=== PATIENT | female | born 1975 | race Caucasian/White ===

== ENCOUNTER 2020-08-16 12:10 | Outpatient (REF) | payer MEDICAID, SELFPAY ==
--- NOTE | 2020-08-16 | MM_ITS ---
EXAMINATION: MM SCREENING DIGITAL BREAST TOMOSYNTHESIS, BILATERAL CLINICAL INFORMATION: Screening. Asymptomatic. The lifetime risk of breast cancer based on the Tyrer-Cuzick Model is 9.8%. COMPARISON: Mammography: August 11, 2019 and studies dating back to November 16, 2011 TECHNIQUE: Digital breast tomosynthesis is performed in both the craniocaudal and mediolateral oblique views along with computer-aided detection (CAD). Synthesized 2D images are generated from the tomosynthesis. FINDINGS: There are scattered areas of fibroglandular density (ACR BI-RADS breast composition Category b). There are no significant masses, abnormal calcifications, or other abnormalities. Postsurgical change of breast reduction evident within the left breast. MM/MM tomosynthesis screening BI IMPRESSION: There are no significant changes from prior study. ASSESSMENT: BI-RADS 2: Benign RECOMMENDATION: Routine annual mammography screening. This patient's information was entered into a reminder system with a target due date for their next mammogram.
== END 2020-08-16 12:11 | disposition home or self-care (01) ==
LOC: HO.MAMMO 12:10
PROVIDERS: PCP Internal Medicine; Visit Provider Internal Medicine
DX: Z12.31 Encounter for screening mammogram for malignant neoplasm of breast (principal)
CPT/HCPCS: 77063; 77067

== ENCOUNTER 2020-08-30 08:25 | Outpatient (REF) | payer MEDICAID, SELFPAY ==
[2020-08-31 09:32] LABS: CT PCR NOT DETECTED (Not Detect.); NG PCR NOT DETECTED (Not Detect.)
[2020-08-31 09:52] LABS: BV Int Neg Control Negative (Negative); BV Int Pos Control Positive (Positive)
== END 2020-08-30 08:26 | disposition home or self-care (01) ==
LOC: HO.LAB 08:25
PROVIDERS: Visit Provider Obstetrics & Gynecology
DX: Z01.419 Encounter for gynecological examination (general) (routine) without abnormal findings (principal); K59.00 Constipation, unspecified; N93.9 Abnormal uterine and vaginal bleeding, unspecified
CPT/HCPCS: 58100; 87480; 87491; 87510; 87591; 87660

== ENCOUNTER 2020-09-15 08:23 | Outpatient (REF) | payer MEDICAID, SELFPAY ==
[2020-09-15 10:40] LABS: Blood Urea Nitrogen 16 mg/dL (9-16); Estimated Glomerular Filt Rate > 60
== END 2020-09-15 08:24 | disposition home or self-care (01) ==
LOC: HO.10HDL 08:23
PROVIDERS: Visit Provider Urology
DX: N93.9 Abnormal uterine and vaginal bleeding, unspecified (principal); R31.9 Hematuria, unspecified
CPT/HCPCS: 82565; 84520

== ENCOUNTER 2020-09-16 06:57 | Outpatient (REF) | payer MEDICAID, SELFPAY ==
--- NOTE | 2020-09-16 07:00 | CT_ITS ---
EXAMINATION: CT ABDOMEN AND PELVIS WITHOUT AND WITH CONTRAST CLINICAL INFORMATION: Hematuria COMPARISON: CT abdomen and pelvis noncontrast 02/21/2020, 01/02/2020 TECHNIQUE: Noncontrast CT of the abdomen and pelvis is performed followed by split bolus contrast-enhanced images using 85 mL Omnipaque 350 contrast.? Post contrast imaging is performed during the combined nephrogram and excretion phase. Sagittal and coronal reformatted images were obtained on the technologist's workstation for both the pre and postcontrast phases. This CT examination was performed using dose optimization techniques as appropriate, variously including the following: *Automated exposure control *Adjustment of mA and/or kV according to patient size (this includes techniques or standardized protocols for targeted exams where dose is matched to indication/reason for exam; i.e. extremities or head) *Use of iterative reconstruction technique DLP: 1072 mGy-cm FINDINGS: LUNG BASES: The visualized lung bases are unremarkable. LIVER, GALLBLADDER, AND BILIARY TREE: The liver within the [id number] is normal in size and smooth in contour. Parenchymal areas homogeneous. There is no focal hepatic parenchymal lesion or intrahepatic ductal dilatation. The gallbladder is unremarkable with no evidence of radiopaque gallstones, gallbladder wall thickening, or obvious pericholecystic inflammatory changes. PANCREAS: Unremarkable. SPLEEN: Unremarkable. Incidental small splenule left upper quadrant again noted. ADRENAL GLANDS: Unremarkable. KIDNEYS AND URETERS: The kidneys are normal in size and smooth in contour. The parenchyma enhances symmetrically. There is no renal parenchymal mass. There is no hydronephrosis, hydroureter, or perinephric stranding. A questionable punctate nonobstructing calculus is again suggested right lower pole under 3 mm. Otherwise, no visible urinary tract calculi. There is no mucosal thickening or mucosal filling defect demonstrated. BLADDER: Unremarkable. GASTROINTESTINAL TRACT: The small and large bowel are unremarkable. The appendix is unremarkable. No ascites or fluid collection. ABDOMINAL WALL: No significant hernia is appreciated. LYMPH NODES: No lymphadenopathy. VASCULAR: Unremarkable. PELVIC VISCERA: Unremarkable. OSSEUS STRUCTURES: Unremarkable. CT/CT urogram IMPRESSION: 1. Questionable punctate nonobstructing right lower pole calculus under 3 mm. 2. Otherwise no urinary tract calculi. No parenchymal lesion or mucosal filling defect.
[2020-09-16] MEDS: iohexoL 350 MG/ML 100 ML INFUS..BTL 85 ML IV (08:16)
== END 2020-09-16 06:58 | disposition home or self-care (01) ==
LOC: HO.CT 06:57
PROVIDERS: Visit Provider Urology
DX: R31.9 Hematuria, unspecified (principal)
CPT/HCPCS: 74178; Q9967

== ENCOUNTER → 2020-09-19 07:54 | Outpatient (BNVA) | payer MEDICAID, SELFPAY | PROVIDERS: Visit Provider Obstetrics & Gynecology | DX: N93.9 Abnormal uterine and vaginal bleeding, unspecified (principal) | CPT/HCPCS: 99212 ==

== ENCOUNTER 2020-09-29 06:09 | Day surgery (SDC) | payer MEDICAID, SELFPAY ==
[2020-09-22 18:56] VITALS: BMI 28.3
--- NOTE | 2020-09-28 12:02 | HO.ANESPROP2 ---
Documented by User: Ivonne Montanez 09/28/20 12:03 HPI - Anesthesia Eval Consult details Narrative: 45yo F for Hysteroscopy D&C [facility] [place] Past Medical History Medical History Asthma History of abnormal cervical Pap smear Family History Family History Father Throat cancer Paternal Grandmother Throat cancer Surgical History Surgical History History of bilateral breast reduction surgery History of loop electrical excision procedure (LEEP) History of tubal ligation Social History Social History Alcohol intake: current Alcohol intake frequency: holidays/special occasions only Smoking Status: Never smoker Second Hand Smoke Exposure: No Use of substances other than those prescribed or required for medical reasons: No Advance Directives: No Advance Directives Information Provided: No Advance Directives on File: No Recently lost weight without trying: No Sexual orientation: Straight/Heterosexual Gender identity: female Meds Allergies Allergy/AdvReac Type Severity Reaction Status Date / Time No Known Allergies Allergy Mild NOT Verified 09/29/20 07:12 APPLICABLE Home Medications Medication Instructions Recorded Confirmed Type albuterol sulfate 90 mcg/actuation 2 puff INHALATION Q6H PRN 09/19/20 09/22/20 History aerosol inhaler Exam Exam Date and Time: September 28, 2020 1202 Height,Weight and Vital Signs: Height 5 ft 1 in Weight 68.039 kg Pertinent Lab Results Pertinent Lab Results: Laboratory Tests 09/15/20 08:10 BUN 16 Creatinine 0.67 Assessment and Plan Assessment Anesthesia Assessment: Chart Reviewed Documented by User: Sadie Ruiz 09/29/20 07:53 [facility] [place] Past Medical History Medical History Asthma History of abnormal cervical Pap smear Family History Family History Father Throat cancer Paternal Grandmother Throat cancer Surgical History Surgical History History of bilateral breast reduction surgery History of loop electrical excision procedure (LEEP) History of tubal ligation Social History Social History Alcohol intake: current Alcohol intake frequency: holidays/special occasions only Smoking Status: Never smoker Second Hand Smoke Exposure: No Use of substances other than those prescribed or required for medical reasons: No Advance Directives: No Advance Directives Information Provided: No Advance Directives on File: No Recently lost weight without trying: No Sexual orientation: Straight/Heterosexual Gender identity: female Meds Allergies Allergy/AdvReac Type Severity Reaction Status Date / Time No Known Allergies Allergy Mild NOT Verified 09/29/20 07:12 APPLICABLE Home Medications Medication Instructions Recorded Confirmed Type albuterol sulfate 90 mcg/actuation 2 puff INHALATION Q6H PRN 09/19/20 09/22/20 History aerosol inhaler Exam Airway Mallampati Class: II TM Dist: >3cm Neck ROM: Full
[2020-09-29 06:21] VITALS: BP 153/81; PULSE 82; RESP 16; TEMP 36.7; O2SAT 98
[2020-09-29] MEDS: Lactated Ringers 1,000 ML 100 ML IVCONT (06:41)
[2020-09-29 06:59] LABS: HCG Quantitative < 2 mIU/mL
--- NOTE | 2020-09-29 07:30 | MHC.SHP ---
Pre-Procedural Eval Section A The patient is an INPATIENT: No Changes since office visit: No Cold of Flu in the past 2 weeks, No New Medical Problems, No Changes in Medication and No Patient answered all questions The History & Physical has been completed within 30 days and I have reviewed it.: Yes Section B Chief Complaint: uterine bleeding Allergies: Allergies Allergy/AdvReac Type Severity Reaction Status Date / Time No Known Allergies Allergy Mild NOT Verified 09/29/20 07:12 APPLICABLE Plan I have reviewed the history and physical and performed a pertinent physical examination on my patient. No changes have occurred unless specified.
--- NOTE | 2020-09-29 07:53 | HO.ANESPROP2 ---
[facility] Past Medical History Medical History Asthma History of abnormal cervical Pap smear Family History Family History Father Throat cancer Paternal Grandmother Throat cancer Surgical History Surgical History History of bilateral breast reduction surgery History of loop electrical excision procedure (LEEP) History of tubal ligation Social History Social History Alcohol intake: current Alcohol intake frequency: holidays/special occasions only Smoking Status: Never smoker Second Hand Smoke Exposure: No Use of substances other than those prescribed or required for medical reasons: No Advance Directives: No Advance Directives Information Provided: No Advance Directives on File: No Recently lost weight without trying: No Sexual orientation: Straight/Heterosexual Gender identity: female Meds Allergies Allergy/AdvReac Type Severity Reaction Status Date / Time No Known Allergies Allergy Mild NOT Verified 09/29/20 07:12 APPLICABLE Home Medications Medication Instructions Recorded Confirmed Type albuterol sulfate 90 mcg/actuation 2 puff INHALATION Q6H PRN 09/19/20 09/22/20 History aerosol inhaler Exam Exam Date and Time: September 29, 2020 0753 Height,Weight and Vital Signs: Height 5 ft 1 in Weight 68.039 kg Last Vital Signs Temp 98.1 F 09/29/20 06:21 Pulse 82 09/29/20 06:21 Resp 16 09/29/20 06:21 BP 153/81 H 09/29/20 06:21 Pulse Ox 98 09/29/20 06:21 Pertinent Lab Results Pertinent Lab Results: Laboratory Tests 09/29/20 06:27 Beta HCG, Quant < 2 Assessment and Plan Assessment Anesthesia Assessment: Anesthesia Plan Discussed and Chart Reviewed Final Anesthetic Review NPO: Yes ASA Class: I Final Preanesthetic Review: No Changes in Pt Med Stat, Meds/Allgs Chart Reviewed, Consent Obtained/Reviewed and Anes Risks/Benef Reviewed Patient Risk: Low Procedure Risk: Low Assessment/Block/Sedation in SS: Assess/Block/Sedation-SS Anesthetic Plan Anesthetic Plan: MAC: Disposition: Standard PACU
[2020-09-29 08:30] VITALS: BP 139/85; PULSE 85; RESP 16; TEMP 36.2; O2SAT 98
--- NOTE | 2020-09-29 08:38 | W.PM.OPN ---
Operative Note Operative Note Date of Service: 09/29/20 Narrative: Ms. Tomlin is a 45 year old with abnormal uterine bleeding. She presents today for hysteroscopy d&c after endometrial biopsy was not able to be done in the office. Surgical Risks: The patient was informed of the risks and benefits of a hysteroscopy with dilation and curettage. Risks included but were not limited to bleeding, infection, injury to the vulva, vagina, or cervix, and uterine perforation with possible need for further surgery. The patient expressed understanding of the risks involved, all questions were answered, and the patient consented to the procedure. The patient was taken to the operating room where a time out was confirmed to confirm correct patient and correct procedure. Adequate IV sedation was established. The patient was then positioned on the operating table in the dorsal lithotomy position with her legs supported using stirrups. All pressure points were padded and a warm blanket was placed to maintain control of core body temperature. The patient was then prepped and draped in the usual sterile fashion. A bimanual exam was performed and the uterus was found to be approximately 10 cm size, anteverted. A straight catheter was inserted into the bladder and 75mL of urine was obtained. A bivalve speculum was then inserted into the vagina. The anterior lip of the cervix was visualized and grasped using a single tooth tenaculum. The cervix was adequately dilated using Gregg dilators for the introduction of the hysteroscope. The hysteroscope was introduced under direct visualization using normal saline solution as the distending media. The hysteroscope was unable to be advanced to the fundus due to a likely fibroid at the internal cervical os. The myosure device was inserted and used to remove the likely fibroid. The hysteroscope was then further advanced into the uterine cavity and what appeared to be an endometrial polyp was visualized on the posterior surface. This was removed with the myosure. The cavity was then inspected with no other gross abnormalities noted. The hysteroscope was then removed and a sharp curetting was performed starting at the 12 o?clock position and rotating a total of 360 degrees in order to cover all surfaces. Endometrial tissue was obtained and was sent to pathology. Following the curetting, good hemostasis was noted. The single-tooth tenaculum was removed from the anterior lip of the cervix and hemostasis was also noted at the tenaculum puncture sites. The speculum was then removed from the vagina. At the end of the procedure, all needle, sponge, and instrument counts were noted to be correct x2. The patient was transferred to the recovery room in stable condition.
[2020-09-29 08:45] VITALS: BP 137/73; PULSE 78; RESP 16; O2SAT 100
[2020-09-29] MEDS: oxyCODONE HCl Immed Release 5 MG TABLET PO (08:51)
[2020-09-29] MEDS: Acetaminophen 325 MG TABLET 650 MG PO (08:52)
[2020-09-29 09:00] VITALS: BP 144/76; PULSE 72; RESP 16; O2SAT 99
[2020-09-29 09:15] VITALS: BP 146/67; PULSE 63; RESP 16; TEMP 36.3; O2SAT 100
--- NOTE | 2020-09-29 09:25 | HO.POSTANES ---
Post Anesthesia Evaluation Post Anesthesia Evaluation Vital Signs: Vital Signs Temp Pulse Resp BP Pulse Ox 09/29/20 09:15 97.4 F 63 16 146/67 H 100 09/29/20 09:00 72 16 144/76 H 99 09/29/20 08:45 78 16 137/73 100 09/29/20 08:30 97.2 F 85 16 139/85 98 09/29/20 06:21 98.1 F 82 16 153/81 H 98 Anesthesia: Monitored Mental Status: Awake Pain Control: Satisfactory Nausea/Vomiting: None Hydration: Adequate Anesthesia-Related Issues: No Anes. Related Issues
== END 2020-09-29 09:39 | disposition home or self-care (01) ==
PROVIDERS: Visit Provider Obstetrics & Gynecology
PROC: 0UJD8ZZ Inspection of Uterus and Cervix, Via Natural or Artificial Opening Endoscopic (ICD-10-PCS; CPT 58555; principal; 2020-09-29 07:30)
DX: N93.9 Abnormal uterine and vaginal bleeding, unspecified (principal); N84.0 Polyp of corpus uteri; Z98.51 Tubal ligation status
CPT/HCPCS: 58558; 84702; 88305; J1885; J2250; J2405; J3010

== ENCOUNTER → 2020-10-05 09:25 | Outpatient (BNVA) | payer MEDICAID, SELFPAY | PROVIDERS: Visit Provider Nurse Practitioner | DX: Z13.89 Encounter for screening for other disorder (principal) | CPT/HCPCS: 99202 ==

== ENCOUNTER → 2020-10-12 14:53 | Outpatient (BNVA) | payer MEDICAID, SELFPAY | PROVIDERS: Visit Provider Obstetrics & Gynecology ==

== ENCOUNTER → 2020-10-13 10:46 | Outpatient (BNVA) | payer MEDICAID, SELFPAY | PROVIDERS: PCP Nurse Practitioner Family; Visit Provider Urology | DX: R31.9 Hematuria, unspecified (principal) | CPT/HCPCS: 52000; 81002; 99212 ==

== ENCOUNTER 2020-10-19 08:55 | Outpatient (REF) | payer MEDICAID, SELFPAY ==
--- NOTE | 2020-10-19 08:58 | US_ITS ---
EXAMINATION: US ABDOMEN COMPLETE CLINICAL INFORMATION: Dysphagia, unspecified. Right upper quadrant pain. COMPARISON: CT abdomen and pelvis 02/21/2020. TECHNIQUE: Real-time imaging of the abdominal viscera. FINDINGS: PANCREAS: Normal. ABDOMINAL AORTA: The proximal, mid, and distal segments are normal in caliber. INFERIOR VENA CAVA: Visualized portions are normal. LIVER: Normal. The liver is normal in size. The liver contour is normal. Parenchymal echogenicity is normal. No focal hepatic lesion. No intrahepatic bile duct dilatation. GALLBLADDER: Normal. The gallbladder is physiologically distended without evidence of stones, sludge, polyps, wall thickening or pericholecystic fluid. COMMON BILE DUCT: Normal in caliber measuring 0.2 cm in diameter. RIGHT KIDNEY: Normal. No hydronephrosis. No renal calculi or focal parenchymal lesions. The kidney measures 11.0 cm in maximum dimension. LEFT KIDNEY: Normal. No hydronephrosis. No renal calculi or focal parenchymal lesions. The kidney measures 11.7 cm in maximum dimension. SPLEEN: Normal. The spleen measures 7.2 cm in maximum dimension. FREE FLUID: None. US/US abdomen complete IMPRESSION: Normal abdominal ultrasound.
== END 2020-10-19 08:56 | disposition home or self-care (01) ==
LOC: HO.HMGCX 08:55
PROVIDERS: Visit Provider Nurse Practitioner
DX: R10.11 Right upper quadrant pain (principal)
CPT/HCPCS: 76700

== ENCOUNTER 2020-10-20 13:17 | Outpatient (REF) | payer MEDICAID, SELFPAY | END 2020-10-20 13:18 | disposition home or self-care (01) | LOC: HO.LNP 13:17 | PROVIDERS: Visit Provider Nurse Practitioner | DX: K59.00 Constipation, unspecified (principal); R10.11 Right upper quadrant pain | CPT/HCPCS: 87338 ==

== ENCOUNTER → 2020-11-02 08:37 | Outpatient (BNVA) | payer MEDICAID, SELFPAY | PROVIDERS: Visit Provider Nurse Practitioner ==

== ENCOUNTER 2020-11-09 05:08 | Emergency (ER) | payer MEDICAID, SELFPAY ==
[2020-11-09 05:17] VITALS: BP 146/79; PULSE 76; RESP 16; TEMP 36.9; O2SAT 97; BMI 29.2
--- NOTE | 2020-11-09 05:20 | PC.NURSE ---
PT TO ROOM 21 WITH C/O MID ABD PAIN AFTER EATING LOBSTER TONIGHT. PT ARRIVES ALERT, RESPIRATIONS EASY, N/L. SKIN W/D. IN ROOM FOR EVAL.
--- NOTE | 2020-11-09 05:46 | PC.NURSE ---
IV PLACED TO LEFT AC, LABS DRAWN TO LAB FOR EVAL. IN ROOM FOR OBS TO LAB. WILL CONTINUE TO MONITOR PT.
[2020-11-09 05:49] LABS: Basophils Percent Auto 0.1 % (0-2); Eosinophils Absolute Auto 0.2 X10*3/uL (0.0-0.4); Eosinophils Percent Auto 1.4 % (0-4); Hematocrit 40.6 % (37-47); Hemoglobin 13.5 g/dl (12.0-16.0); Imm Gran Abs Auto 0.05 X10*3/uL (0.00-0.03); Imm Gran Pct Auto 0.4 % (0.0-0.4); Lymphocytes Absolute Auto 1.3 X10*3/uL (1.2-4.9); Lymphocytes Percent Auto 9.7 % (20-40); MANUAL DIFF FLAG NO; Mean Corpuscular HGB Conc 33.3 g/dl (31.0-35.0); Mean Corpuscular Hemoglobin 29.3 pg (27.0-33.0); Mean Corpuscular Volume 88.3 fL (80-98); Mean Platelet Volume 8.8 fL (9.4-12.3); Monocytes Absolute Auto 0.7 X10*3/uL (0.1-1.2); Neutrophils Absolute Auto 11.5 X10*3/uL (2.0-8.3); Neutrophils Percent Auto 83.4 % (45-73); Platelet Count 295 X10*3/uL (160-400); White Blood Count 13.7 X10*3/uL (4.8-10.8)
[2020-11-09] MEDS: Famotidine/PF 20 MG/2 ML VIAL IVPUSH (05:50)
[2020-11-09] MEDS: Metoclopramide HCl 10 MG/2 ML VIAL IVPUSH (05:50)
[2020-11-09] MEDS: Magnesium Hydrox/Alum Hydrox 30 ML ORAL.SUSP PO (05:50)
[2020-11-09] MEDS: Lidocaine HCl Viscous 2 % 15 ML SOLUTION 10 ML MUCOUS MEM (05:50)
[2020-11-09] MEDS: 0.9 % Sodium Chloride 1,000 ML 999 ML IVCONT (05:50)
[2020-11-09 05:52] LABS: Glucose Urine UA NEG (NEG); Leukocyte Esterase Urine NEG (NEG); Nitrite Urine NEG (NEG); PH 7.5 (5.0-8.0); Urine Blood NEG (NEG); Urine Ketones NEG (NEG); Urine Protein NEG (NEG-TRACE)
[2020-11-09 05:54] LABS: Appearance Urine CLEAR; Color Urine YELLOW; OBS Int Ctl Valid YES; OBS1 NEG (NEG)
[2020-11-09 05:55] LABS: UPreg QC Valid YES; Urine Pregnancy NEGATIVE (NEGATIVE)
--- NOTE | 2020-11-09 05:56 | ED_ITS ---
HPI - Abdominal Pain General Chief Complaint: Abdominal Pain Stated Complaint: Abd pain Time Seen by Provider: 11/09/20 05:28 Source: patient Mode of arrival: ambulatory Limitations: no limitations History of Present Illness HPI narrative: 45-year-old female with history of H pylori infection and chronic abdominal pain, patient is seeing GI and schedule to have barium swallow by GI, patient yesterday ate lobster and after eating lobster pain gotten worse, patient has started have several episodes of vomiting. Patient also documented that she has been having black stool. Patient describes pain in the epigastric area with no radiation, pain is constant feels like burning pain pain is moderate in severity (5/10), food makes the pain worse, nothing make it better, pain is associated with vomiting and black stool diarrhea. Related Data Home Medications Medication Instructions Recorded Confirmed albuterol sulfate 90 mcg/actuation 2 puff INHALATION Q6H PRN 09/19/20 10/13/20 aerosol inhaler Previous Rx's Medication Instructions Recorded acetaminophen [Tylenol 8 Hour] 650 mg PO Q8H PRN #60 tab 09/29/20 ibuprofen 800 mg PO Q8H PRN #60 tab 09/29/20 oxycodone [Roxicodone] 5 mg PO Q6H PRN #5 tab 09/29/20 bisacodyl 5 mg tablet,delayed 10 mg PO BEDTIME 2 Days #4 tab 10/05/20 release hydrocortisone 2.5 % topical cream 1 appl AR BID PRN #30 g 10/05/20 with perineal applicator medroxyprogesterone 10 mg tablet 20 mg PO DAILY 5 Days #10 tab 10/12/20 norgestimate 0.25 mg-ethinyl 1 tab PO DAILY #84 tab 10/12/20 estradiol 35 mcg tablet sulfamethoxazole 800 1 tab PO BID #14 tab 10/12/20 mg-trimethoprim 160 mg tablet metronidazole 500 mg tablet 1,000 mg PO BID 14 Days #56 tab 10/28/20 omeprazole 20 mg capsule,delayed 20 mg PO BID 14 Days #28 cap 10/28/20 release ondansetron HCl 4 mg tablet 4 mg PO BID-TID PRN 14 Days #60 tab 10/28/20 tetracycline 500 mg capsule 500 mg PO Q12H 14 Days #28 cap 10/28/20 bismuth subsalicylate 262 mg 2 tab PO QID 14 Days #112 tab 11/02/20 chewable tablet linaclotide 290 mcg capsule 290 mcg PO QAM 30 Days #30 cap 11/02/20 polyethylene glycol 3350 17 17 g PO ONCE 1 Days #17 g 11/02/20 gram/dose oral powder bisacodyl 5 mg tablet,delayed 10 mg PO ONCE 1 Days #2 tab 11/03/20 release Allergies Allergy/AdvReac Type Severity Reaction Status Date / Time No Known Allergies Allergy Mild NOT Verified 10/13/20 11:13 APPLICABLE Review of Systems Review of Systems All other systems are reviewed and are negative Constitutional: Reports as per HPI and Reports no additional constitutional complaints Eyes: Reports as per HPI and Reports no additional eye complaints Reports system reviewed and no additional complaints, except as documented Cardiovascular: Reports as per HPI and Reports no additional cardiovascular complaints Respiratory: Reports as per HPI and Reports no additional respiratory complaints Gastrointestinal: Reports as per HPI and Reports no additional gastrointestinal complaints Genitourinary: Reports no additional female genitourinary complaints Musculoskeletal: Reports no additional musculoskeletal complaints Skin/Breast: Reports system reviewed and no additional complaints, except as docu Psychiatric: Reports no additional psychiatric complaints Endocrine: Reports no additional endocrine complaints Hematologic/Lymphatic: Reports no additional hematologic/lymphatic complaints Allergic/Immunologic: Reports no additional allergic/immunologic complaints Reports system reviewed and no additional complaints, except as documented and Reports Abnormal speech present Physical Exam Vital Signs: Vital Signs: Last Vital Signs Temp 98.5 F 11/09/20 05:17 Pulse 76 11/09/20 05:17 Resp 16 11/09/20 05:17 BP 146/79 H 11/09/20 05:17 Pulse Ox 97 11/09/20 05:17 Body Mass Index 29.2 Vital signs have been reviewed as normal and appeared to be correct. Blood pressure high. Heart rate normal. Respiration rate normal. Temperature normal. Oxygen saturation normal. Appearance: Alert. Oriented X3. No acute distress. Head: Normal external exam. Normocephalic. Atraumatic. No Reeves signs noted. No raccoon eyes noted Eyes: PERRLA. EOMI. Conjunctiva and sclera normal. Eyelids normal. ENT: EAC normal. TM's Normal. Pharynx normal. Uvula midline. Moist mucous membranes. No trismus noted. No drooling noted. No muffled voice noted. Neck: Normal inspection. Neck supple. FROM. No adenopathy. Thyroid Normal. No meningeal signs. No neck mass noted. CVS: Normal heart rate and rhythm. Heart sound normal. No murmurs noted. Pulses normal throughout. Respiratory: No respiratory distress. Painless inspiration. Breath sounds normal. No wheezes/rales/rhonchi noted. Chest nontender. No accessory muscle usage noted or decreased air movement noted. Abdomen: Soft, tenderness in the epigastric area, no rebound tenderness, no guarding.. Bowel sounds normal in all 4 quadrants. No distention noted. No organomegaly noted. No visible injury noted. Rectal exam: Good rectal tone, brown stool, no blood, guaiac was negative for blood. Back: No CVA tenderness. Full range of motion noted. Skin: Skin warm and dry. Normal skin color. Normal skin turgor. No rashes/lesions/lacerations noted. Extremities: No lower extremity edema. Extremities exhibit normal range of motion. Extremities nontender. Neuro: Oriented X 3. No motor deficit. No sensory deficit. Reflexes normal. Course Course Course Narrative: Acute on chronic abdominal pain due to chronic gastritis patient is already following with fruit rancher in the process of getting barium swallow and upper endoscopy, patient currently receiving treatment for H pylori. Reevaluation(s) Reevaluation #1: Patient was re-evaluated after getting a GI cocktail/Pepcid IV/Reglan IV/IV hydration. Patient is feeling much better, able to tolerate p.o. intake (ice chips), repeat abdominal exam is unremarkable except for mild epigastric tenderness with no rebound no guarding with much improved exam As discussed with the patient to call GI today probably to arrange for upper GI serous and upper endoscopy. Time: 06:45 [facility] - Abdominal Pain Lab Data Result diagrams: 11/09/20 05:38 11/09/20 05:38 Labs: Lab Results 11/09/20 11/09/20 11/09/20 Range/Units 05:38 05:38 05:38 WBC 13.7 H (4.8-10.8) X10*3/uL RBC 4.60 (4.20-5.50) X10*6/uL Hgb 13.5 (12.0-16.0) g/dl Hct 40.6 (37-47) % MCV 88.3 (80-98) fL MCH 29.3 (27.0-33.0) pg MCHC 33.3 (31.0-35.0) g/dl RDW 13.0 (11.0-16.0) % Plt Count 295 (160-400) X10*3/uL MPV 8.8 L (9.4-12.3) fL Immature Gran % (Auto) 0.4 (0.0-0.4) % Neut % (Auto) 83.4 H (45-73) % Lymph % (Auto) 9.7 L (20-40) % [place] % (Auto) 5.0 (2-11) % Eos % (Auto) 1.4 (0-4) % Baso % (Auto) 0.1 (0-2) % Lymph # (Auto) 1.3 (1.2-4.9) X10*3/uL [place] # (Auto) 0.7 (0.1-1.2) X10*3/uL Eos # (Auto) 0.2 (0.0-0.4) X10*3/uL Baso # (Auto) 0.0 (0.0-0.2) X10*3/uL Abs Immat Gran (auto) 0.05 H (0.00-0.03) X10*3/uL Absolute Neuts (auto) 11.5 H (2.0-8.3) X10*3/uL Absolute Nucleated RBC 0.000 (0.0-0.012) X10*3/uL Nucleated RBC % (auto) 0.0 (0.0-0.2) /100WBC Sodium 134 L (135-145) mmol/L Potassium 3.9 (3.3-5.1) mmol/l Chloride 103 (96-108) mmol/L Carbon Dioxide 23 (22-29) mmol/L Anion Gap 12 (12-20) BUN 13 (9-16) mg/dL Creatinine 0.64 (0.5-1.4) mg/dL Estim Creat Clear Calc 94.5 Estimated GFR > 60 Random Glucose 101 (60-115) mg/dL Calcium 9.1 (8.4-10.2) mg/dL Total Bilirubin 0.6 (0.0-1.0) mg/dL Direct Bilirubin 0.2 (0.0-0.5) mg/dL AST 23 (5-31) U/L ALT 24 (0-31) U/L Alkaline Phosphatase 47 (39-117) U/L Total Protein 6.7 (6.5-8.0) g/dL Albumin 3.9 (3.5-5.0) g/dL Lipase 25 (8-78) U/L Urine Color YELLOW Urine Appearance CLEAR Urine pH 7.5 (5.0-8.0) Ur Specific [place] 1.020 (1.005-1.025) Urine Protein NEG (NEG-TRACE) MG/DL Urine Glucose (UA) NEG (NEG) MG/DL Urine Ketones NEG (NEG) MG/DL Urine Blood NEG (NEG) Urine Nitrite NEG (NEG) Ur Leukocyte Esterase NEG (NEG) Urine Test NEGATIVE (NEGATIVE) Stool Occult Blood (NEG) 11/09/20 Range/Units 05:38 WBC (4.8-10.8) X10*3/uL RBC (4.20-5.50) X10*6/uL Hgb (12.0-16.0) g/dl Hct (37-47) % MCV (80-98) fL MCH (27.0-33.0) pg MCHC (31.0-35.0) g/dl RDW (11.0-16.0) % Plt Count (160-400) X10*3/uL MPV (9.4-12.3) fL Immature Gran % (Auto) (0.0-0.4) % Neut % (Auto) (45-73) % Lymph % (Auto) (20-40) % [place] % (Auto) (2-11) % Eos % (Auto) (0-4) % Baso % (Auto) (0-2) % Lymph # (Auto) (1.2-4.9) X10*3/uL [place] # (Auto) (0.1-1.2) X10*3/uL Eos # (Auto) (0.0-0.4) X10*3/uL Baso # (Auto) (0.0-0.2) X10*3/uL Abs Immat Gran (auto) (0.00-0.03) X10*3/uL Absolute Neuts (auto) (2.0-8.3) X10*3/uL Absolute Nucleated RBC (0.0-0.012) X10*3/uL Nucleated RBC % (auto) (0.0-0.2) /100WBC Sodium (135-145) mmol/L Potassium (3.3-5.1) mmol/l Chloride (96-108) mmol/L Carbon Dioxide (22-29) mmol/L Anion Gap (12-20) BUN (9-16) mg/dL Creatinine (0.5-1.4) mg/dL Estim Creat Clear Calc Estimated GFR Random Glucose (60-115) mg/dL Calcium (8.4-10.2) mg/dL Total Bilirubin (0.0-1.0) mg/dL Direct Bilirubin (0.0-0.5) mg/dL AST (5-31) U/L ALT (0-31) U/L Alkaline Phosphatase (39-117) U/L Total Protein (6.5-8.0) g/dL Albumin (3.5-5.0) g/dL Lipase (8-78) U/L Urine Color Urine Appearance Urine pH (5.0-8.0) Ur Specific [place] (1.005-1.025) Urine Protein (NEG-TRACE) MG/DL Urine Glucose (UA) (NEG) MG/DL Urine Ketones (NEG) MG/DL Urine Blood (NEG) Urine Nitrite (NEG) Ur Leukocyte Esterase (NEG) Urine Test (NEGATIVE) Stool Occult Blood NEG (NEG) Discharge Plan Discharge Clinical Impression: Abdominal pain, Gastritis Patient Disposition: Home, Self-Care Instructions: Gastritis (ED) Prescriptions: No Action omeprazole 20 mg capsule,delayed release(DR/EC) 20 mg PO BID 14 Days Qty: 28 RF: 0 metronidazole [Flagyl] 500 mg tablet 1,000 mg PO BID 14 Days Qty: 56 RF: 0 tetracycline 500 mg capsule 500 mg PO Q12H 14 Days Qty: 28 RF: 0 ondansetron HCl [Zofran] 4 mg tablet 4 mg PO BID-TID PRN (Reason: nausea and vomiting) 14 Days Qty: 60 RF: 0 bisacodyl [Dulcolax (bisacodyl)] 5 mg tablet,delayed release (DR/EC) 10 mg PO ONCE 1 Days Qty: 2 RF: 0 ibuprofen 800 mg tablet 800 mg PO Q8H PRN (Reason: pain) Qty: 60 RF: 1 acetaminophen [Tylenol 8 Hour] 650 mg tablet extended release 650 mg PO Q8H PRN (Reason: pain) Qty: 60 RF: 1 oxycodone [Roxicodone] 5 mg tablet 5 mg PO Q6H PRN (Reason: pain) Qty: 5 RF: 0 albuterol sulfate 90 mcg/actuation HFA aerosol inhaler 2 puff inhalation Q6H PRN (Reason: Shortness Of Breath Or Wheezing) RF: 0 bisacodyl [Dulcolax (bisacodyl)] 5 mg tablet,delayed release (DR/EC) 10 mg PO BEDTIME 2 Days Qty: 4 RF: 0 hydrocortisone [Anusol-HC] 2.5 % cream with perineal applicator 1 appl AR BID PRN (Reason: hemorrhoids) Qty: 30 RF: 0 sulfamethoxazole-trimethoprim 800-160 mg tablet 1 tab PO BID Qty: 14 RF: 0 medroxyprogesterone [Provera] 10 mg tablet 20 mg PO DAILY 5 Days Qty: 10 RF: 0 norgestimate-ethinyl estradiol [Sprintec (28)] 0.25-35 mg-mcg tablet 1 tab PO DAILY Qty: 84 RF: 3 Linzess 290 mcg capsule 290 mcg PO QAM 30 Days Qty: 30 RF: 0 polyethylene glycol 3350 [Miralax] 17 gram/dose powder 17 g PO ONCE 1 Days Qty: 17 RF: 0 bismuth subsalicylate [Bismuth] 262 mg tablet,chewable 2 tab PO QID 14 Days Qty: 112 RF: 0 Referrals: [facility] [Primary Care Provider] - 2 days Castrejon,Anel, ANP-C [Nurse Practitioner] - 2 days [facility] Past Medical History Medical History Asthma History of abnormal cervical Pap smear Surgical History History of bilateral breast reduction surgery History of loop electrical excision procedure (LEEP) History of tubal ligation Family History Family History Father Throat cancer Paternal Grandmother Throat cancer Brother Stomach problems Mother Diabetes Maternal Grandmother Diabetes Other Stroke Social History Social History (Updated 11/02/20 @ 08:38 by Dianelys Braun [facility]) Alcohol intake: current Alcohol intake frequency: holidays/special occasions only Smoking Status: Never smoker Second Hand Smoke Exposure: No Advance Directives: No Sexual orientation: Straight/Heterosexual Gender identity: female
--- NOTE | 2020-11-09 06:01 | PC.NURSE ---
pt medicated as per emar.
[2020-11-09 06:13] LABS: Alanine Aminotransferase 24 U/L (0-31); Albumin Level 3.9 g/dL (3.5-5.0); Alkaline Phosphatase 47 U/L (39-117); Anion Gap 12 (12-20); Aspartate Amino Transferase 23 U/L (5-31); Bilirubin Direct 0.2 mg/dL (0.0-0.5); Bilirubin Total 0.6 mg/dL (0.0-1.0); Blood Urea Nitrogen 13 mg/dL (9-16); Calcium 9.1 mg/dL (8.4-10.2); Carbon Dioxide 23 mmol/L (22-29); Chloride 103 mmol/L (96-108); Creatinine Clr Calc Pharmacy 94.5; Estimated Glomerular Filt Rate > 60; Glucose Random 101 mg/dL (60-115); Lipase 25 U/L (8-78); Potassium 3.9 mmol/l (3.3-5.1); Sodium 134 mmol/L (135-145); Total Protein 6.7 g/dL (6.5-8.0)
== END 2020-11-09 07:06 | disposition home or self-care (01) ==
PROVIDERS: Emergency Provider Emergency Medicine
DX: K29.70 Gastritis, unspecified, without bleeding (principal); R10.13 Epigastric pain; Z79.899 Other long term (current) drug therapy
CPT/HCPCS: 36415; 80048; 80076; 81003; 81025; 82272; 83690; 85025; 96361; 96374; 96375; 99283; 99284; J2765

== ENCOUNTER → 2020-11-30 08:18 | Outpatient (BNVA) | payer MEDICAID, SELFPAY | PROVIDERS: Visit Provider Nurse Practitioner ==

== ENCOUNTER 2020-12-06 12:40 | Outpatient (REF) | payer MEDICAID, SELFPAY | END 2020-12-06 12:41 | disposition home or self-care (01) | LOC: HO.LNP 12:40 | PROVIDERS: Visit Provider Nurse Practitioner | DX: A04.8 Other specified bacterial intestinal infections (principal) | CPT/HCPCS: 87338 ==

== ENCOUNTER 2020-12-07 08:21 | Outpatient (REF) | payer MEDICAID, SELFPAY | END 2020-12-07 08:22 | disposition home or self-care (01) | LOC: HO.LNP 08:21 | PROVIDERS: Visit Provider Nurse Practitioner | DX: Z13.89 Encounter for screening for other disorder (principal) ==

== ENCOUNTER 2020-12-30 08:55 | Outpatient (REF) | payer MEDICAID, SELFPAY | END 2020-12-30 08:56 | disposition home or self-care (01) | LOC: HO.XRAY 08:55 | PROVIDERS: Visit Provider Nurse Practitioner | DX: R13.10 Dysphagia, unspecified (principal) | CPT/HCPCS: 74220 ==

== ENCOUNTER 2021-01-16 08:25 | Day surgery (SDC) | payer MEDICAID, SELFPAY ==
--- NOTE | 2021-01-13 13:45 | P.CONAN_ITS ---
Documented by User: Ivonne Montanez 01/13/21 13:47 HPI - Anesthesia Eval Consult details Narrative: 45yo F for Upper Endoscopy and Colonoscopy PMFSH Active Problems Active Problems: All Active Problems (Updated 01/10/21 @ 10:17 by Marlen Villeda) Abnormal uterine bleeding (Acute) Hematuria (Acute) Dysphagia (Acute) RUQ abdominal pain (Acute) H. pylori infection (Acute) GERD (gastroesophageal reflux disease) (Acute) Chronic idiopathic constipation (Acute) Past Medical History Medical History Asthma GERD (gastroesophageal reflux disease) History of abnormal cervical Pap smear Family History Family History Father Throat cancer Paternal Grandmother Throat cancer Brother Stomach problems Mother Diabetes Maternal Grandmother Diabetes Other Stroke Surgical History Surgical History History of bilateral breast reduction surgery History of loop electrical excision procedure (LEEP) History of tubal ligation Hx of dilation and curettage Social History Social History Household Members: Spouse Alcohol intake: current Alcohol intake frequency: holidays/special occasions only Smoking Status: Never smoker Second Hand Smoke Exposure: No Advance Directives: No Advance Directives Information Provided: No Recently lost weight without trying: No Current occupational status: employed 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 Sexual orientation: Straight/Heterosexual Gender identity: female Meds Allergies Allergy/AdvReac Type Severity Reaction Status Date / Time No Known Allergies Allergy Mild NOT Verified 01/10/21 10:18 APPLICABLE Home Medications Medication Instructions Recorded Confirmed Last Taken Type albuterol sulfate 90 mcg/actuation 2 puff INHALATION Q6H PRN 09/19/20 01/10/21 Unknown History aerosol inhaler Exam Exam Date and Time: January 13, 2021 134 Assessment and Plan Assessment Anesthesia Assessment: Chart Reviewed Documented by User: Sabina Pantoja 01/16/21 09:42 [facility] Past Medical History Medical History Asthma GERD (gastroesophageal reflux disease) History of abnormal cervical Pap smear Family History Family History Father Throat cancer Paternal Grandmother Throat cancer Brother Stomach problems Mother Diabetes Maternal Grandmother Diabetes Other Stroke Family history of problems with anesthesia: No Surgical History Surgical History History of bilateral breast reduction surgery History of loop electrical excision procedure (LEEP) History of tubal ligation Hx of dilation and curettage History of Problems with Anesthesia: No Social History Social History Household Members: Spouse Alcohol intake: current Alcohol intake frequency: holidays/special occasions only Smoking Status: Never smoker Second Hand Smoke Exposure: No Advance Directives: No Advance Directives Information Provided: No Recently lost weight without trying: No Current occupational status: employed 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 Sexual orientation: Straight/Heterosexual Gender identity: female Meds Allergies Allergy/AdvReac Type Severity Reaction Status Date / Time No Known Allergies Allergy Mild NOT Verified 01/10/21 10:18 APPLICABLE Home Medications Medication Instructions Recorded Confirmed Last Taken Type albuterol sulfate 90 mcg/actuation 2 puff INHALATION Q6H PRN 09/19/20 01/10/21 Unknown History aerosol inhaler Exam Height,Weight and Vital Signs: Height 5 ft Weight 68.492 kg Vital Signs Temp Pulse Resp BP Pulse Ox 01/16/21 09:34 98.6 F 76 16 143/83 H 97 01/16/21 09:33 98.6 F 76 16 143/83 H 97 01/16/21 09:00 98.6 F 76 16 143/83 H 97 Airway Mallampati Class: II TM Dist: >3cm Neck ROM: Full Partial: Upper Loose/Missing/Broken Teeth: Yes Heart: RRR Lungs: CTAB Assessment and Plan Assessment Anesthesia Assessment: Anesthesia Plan Discussed and Chart Reviewed Final Anesthetic Review NPO: Yes ASA Class: II Final Preanesthetic Review: No Changes in Pt Med Stat, Meds/Allgs Chart Reviewed, Consent Obtained/Reviewed and Anes Risks/Benef Reviewed Patient Risk: Low Procedure Risk: Low Assessment/Block/Sedation in SS: Assess/Block/Sedation-SS Anesthetic Plan Anesthetic Plan: MAC: Disposition: Standard PACU
--- NOTE | ~2021-01-16 | FL_ITS ---
EXAMINATION: FL BARIUM SWALLOW CLINICAL INFORMATION: Dysphagia COMPARISON: None TECHNIQUE: Barium swallow examination is performed using fluoroscopic evaluation in addition to multiple fluoroscopic spot views. The patient is imaged both upright and prone and using both thick and thin sulfate along with effervescent granules. Fluoroscopy time: 1.7 minutes minutes DAP: 12.45 Gycm2 Images: 55 FINDINGS: Following oral administration of thick barium and barium coated turkey there is normal propagation of bolus from the oral cavity through the pharynx, esophagus into stomach without any evidence of obstruction, narrowing or stricture. There is no mucosal hypertrophy seen in the oropharynx and esophagus. On placing patient prone lying and oral administration of thin barium there is good distention of esophagus without any intraluminal filling defect. There is mild gastroesophageal reflux with a small sliding hiatal hernia. FL/FL barium swallow IMPRESSION: Small sliding hiatal hernia with mild gastroesophageal reflux.
[2021-01-16 09:00] VITALS: BP 143/83; PULSE 76; RESP 16; TEMP 37; O2SAT 97; BMI 29.5
[2021-01-16] MEDS: Lactated Ringers 1,000 ML 100 ML IVCONT (09:15)
[2021-01-16 09:33] VITALS: BP 143/83; PULSE 76; RESP 16; TEMP 37; O2SAT 97
[2021-01-16 09:34] VITALS: BP 143/83; PULSE 76; RESP 16; TEMP 37; O2SAT 97
--- NOTE | 2021-01-16 09:39 | P.OP_ITS ---
Operative Note Operative Note Date of Service: 01/16/21 Narrative: Pre-op diagnosis: Colon cancer screening, dysphagia Post-op diagnosis: other (Gastritis, colon polyp, diverticulosis, hemorrhoids) Procedure: FLEXIBLE TRANSORAL UPPER GASTROINTESTINAL ENDOSCOPY WITH BIOPSIES AND ESOPHAGEAL BALLOON DILATION AND COLONOSCOPY TILL CECUM WITH BIOPSIES UPPER ENDOSCOPY Consent: Indications for the procedure and potential complications of bleeding, perforation, reaction to medications and missed diagnosis were discussed with the patient and informed consent was obtained. Instrument: Olympus GIF H 190 mid size upper endoscope Monitoring: Vital signs and clinical assessment, continuous EKG monitoring, Pulse oximetry, Carbon Dioxide monitoring and blood pressure monitoring were done throughout the procedure. Procedure: The patient was placed in the left lateral decubitis position and pre-procedure medications were administered and a bite block was placed. The endoscope was inserted into the mouth and advanced under direct vision to the third part of duodenum. A careful inspection was made as the upper endoscope was withdrawn including a retroflexed examination of the proximal stomach; Findings and interventions are described below. Findings: Larynx: Normal Esophagus: Biopsies obtained from proximal esophagus to check for EOE. GE junction at 35cms, small hiatal hernia 35 to 36 cms. No esophagitis, Hernandez's or stricture. Esophageal balloon dilation was performed with a 20 Persian CRE balloon for 60 seconds x1. Stomach: Moderate diffuse gastric erythema. Biopsies were obtained from the gastric body and antrum. Grade 2 flap valve on retroflexed examination of the cardia. Duodenum: Normal bulb and descending duodenum. Biopsies were obtained from 3rd part of the duodenum to check for celiac sprue Intervention: Biopsies and esophageal balloon dilation to 20 mm (60 F) as noted above COLONOSCOPY PROCEDURE NOTE Consent: Indications for the procedure and potential complications of bleeding, perforation, reaction to medications and missed diagnosis were discussed with the patient and informed consent was obtained. Instrument: Olympus PCF H 190 L variable stiffness pediatric colonoscope Monitoring: Vital signs and clinical assessment, intermittent blood pressure monitoring, continuous EKG monitoring, Pulse oximetry and Carbon Dioxide monitoring were done throughout the procedure. Colon withdrawl time was 15 minutes. Procedure: The patient was placed in the left lateral decubitis position and pre-procedure medications were administered. After a digital rectal examination of the ano-rectum, the video colonoscope was inserted into the rectum and advanced through the colon to the cecum. The colonoscope was slowly withdrawn in a retrograde panoramic fashion and the colon mucosa was carefully examined including a retroflexed view of the rectum. Findings and interventions are described below. Procedure Difficulty: : Without difficulty Findings: Terminal Ileum: Not evaluated Cecum: Normal Ascending Colon: A 5-6 mm flat polyp at the hepatic flexure removed with a cold biopsy. Transverse Colon: Normal Descending Colon: Normal Sigmoid Colon: Moderate diverticulosis Rectum: Normal Ano-rectum: Moderate internal hemorrhoids Colon preparation: Good Impression and Post Procedure Diagnosis: Endoscopy Findings: ESOPHAGUS: Small hiatal hernia, biopsies obtained proximal esophagus to check for EOE. Empiric balloon dilation was performed 20 mm (60F) STOMACH: Gastritis DUODENUM: Normal, biopsied to check for celiac sprue Colonoscopy Findings: One small polyp removed Moderate diverticulosis seen in the sigmoid colon Moderate hemorrhoids on retroflexed exam. Plan: Await pathology results Patient has an appointment on 02/06/21 in the GI Clinic with Anel Castrejon NP . Repeat Colonoscopy interval based on path results - in 5 years if polyps are adenomatous and 10 years if polyps are hyperplastic. Above findings were reviewed with the patient and GERD, colon polyps and div erticulosis handouts were given in the discharge area Surgeon: Emory Rachel MD Anesthesia: MAC (Melany Quarles, AMITA) Tubing Mill Operator: Edith Avitia Estimated blood loss (mL): 0 Pathology: other ( A. SMALL BOWEL BXS, R/O CELIAC B. GASTRIC ANTRUM, R/O H. PYLORI C. GASTRIC BODY BXS D. PROXIMAL ESOPHAGUS, R/O EOE E. ASCENDING COLON POLYP) Condition: stable Disposition: PACU
--- NOTE | 2021-01-16 09:39 | MHC.SHP ---
Pre-Procedural Eval Section A The patient is an INPATIENT: No The History & Physical has been completed within 30 days and I have reviewed it.: No Section B Chief Complaint: dysphagia Details of Present Illness: Colon cancer screening, chronic constipation, GERD, dysphagia, abdominal pain Relevant Family History (Specify if Yes): Yes Relevant Social History: None Present Medications: see Short Stay Collaborative assessment Medical History: Significant History (Asthma History of abnormal cervical Pap smear) History of Previous Operations: Relevant previous surgery/procedure and date(s) (istory of bilateral breast reduction surgery History of loop electrical excision procedure (LEEP) History of tubal ligation) Allergies: Allergies Allergy/AdvReac Type Severity Reaction Status Date / Time No Known Allergies Allergy Mild NOT Verified 01/10/21 10:18 APPLICABLE Review of Systems Sugical H&P ROS: Negative: Constitution, Cardiovascular and Respiratory and Yes, Specify: Gastrointestinal (abd pain, dysphagia, constipation) Exam Surgical H&P Exam: Normal: Heart, Normal: Lungs, Normal: Extremities and Normal: Abdomen Plan Diagnosis/Plan: Unchanged I have reviewed the history and physical and performed a pertinent physical examination on my patient. No changes have occurred unless specified.
[2021-01-16 10:39] VITALS: BP 123/85; PULSE 81; RESP 20; TEMP 36.2; O2SAT 100
[2021-01-16 10:56] VITALS: BP 153/74; PULSE 67; RESP 18; TEMP 36.4; O2SAT 100
== END 2021-01-16 12:17 | disposition home or self-care (01) ==
PROVIDERS: Visit Provider Internal Medicine Gastroenterology
DX: Z12.11 Encounter for screening for malignant neoplasm of colon (principal); D12.2 Benign neoplasm of ascending colon; K57.30 Diverticulosis of large intestine without perforation or abscess without bleeding; K64.8 Other hemorrhoids; K59.00 Constipation, unspecified; K21.9 Gastro-esophageal reflux disease without esophagitis; K29.50 Unspecified chronic gastritis without bleeding; K44.9 Diaphragmatic hernia without obstruction or gangrene; J45.909 Unspecified asthma, uncomplicated; Z79.899 Other long term (current) drug therapy
CPT/HCPCS: 45380; 43249; 43239; 74220; 88305; 88342; C1726

== ENCOUNTER → 2021-02-06 09:53 | Outpatient (BNVA) | payer MEDICAID, SELFPAY | PROVIDERS: PCP Internal Medicine; Visit Provider Nurse Practitioner ==

== ENCOUNTER 2021-02-09 12:13 | Outpatient (REF) | payer MEDICAID, SELFPAY ==
[2021-02-09 12:36] LABS: COVID-19 Test Negative (Negative)
== END 2021-02-09 12:14 | disposition home or self-care (01) ==
LOC: HO.LAB 12:13
PROVIDERS: Visit Provider Internal Medicine
DX: Z20.822 Contact with and (suspected) exposure to COVID-19 (principal)
CPT/HCPCS: 36415; 87635; C9803

== ENCOUNTER → 2021-03-14 09:53 | Outpatient (BNVA) | payer MEDICAID, SELFPAY | PROVIDERS: PCP Internal Medicine; Visit Provider Nurse Practitioner ==

== ENCOUNTER 2021-04-13 11:53 | Outpatient (REF) | payer MEDICAID, SELFPAY | END 2021-04-13 11:54 | disposition home or self-care (01) | LOC: HO.LAB 11:53 | PROVIDERS: Visit Provider Internal Medicine | DX: Z20.822 Contact with and (suspected) exposure to COVID-19 (principal) | CPT/HCPCS: C9803; U0003; U0005 ==

== ENCOUNTER 2021-05-01 10:16 | Outpatient (REF) | payer MEDICAID, SELFPAY | END 2021-05-01 10:17 | disposition home or self-care (01) | LOC: HO.10HDLNP 10:16 | PROVIDERS: Visit Provider Nurse Practitioner | DX: A04.8 Other specified bacterial intestinal infections (principal); K59.04 Chronic idiopathic constipation | CPT/HCPCS: 87338 ==

== ENCOUNTER → 2021-05-25 08:43 | Outpatient (BNVA) | payer MEDICAID, SELFPAY | PROVIDERS: PCP Internal Medicine; Visit Provider Nurse Practitioner ==

== ENCOUNTER 2021-06-30 14:13 | Outpatient (REF) | payer MEDICAID, SELFPAY ==
[2021-06-30 15:11] LABS: COVID-19 Test Negative (Negative)
== END 2021-06-30 14:14 | disposition home or self-care (01) ==
LOC: HO.LAB 14:13
PROVIDERS: Visit Provider Internal Medicine
DX: Z20.822 Contact with and (suspected) exposure to COVID-19 (principal)
CPT/HCPCS: 36415; 87635; C9803

== ENCOUNTER 2021-08-12 23:37 | Emergency (ER) | payer MEDICAID, SELFPAY ==
[2021-08-12 23:39] VITALS: BP 191/95; PULSE 69; RESP 18; TEMP 36.3; O2SAT 99; BMI 27.7
--- NOTE | 2021-08-13 00:20 | ED.GENADULT ---
HPI - General Adult General Chief complaint: Skin/Abscess/Foreign Body Stated complaint: Cist Time Seen by Provider: 08/13/21 00:02 Source: patient Mode of arrival: ambulatory History of Present Illness HPI narrative: 46-year-old female with a past medical history of asthma, GERD, presenting to the ED complaining of abscess/infection to left lower abdomen x5 days. Reports side PCP on Saturday was prescribed Keflex which she has been taking for 2 days without improvement. Reports redness spreading, now with abscess. Denies drainage. Denies fever, chills, abdominal pain, nausea, vomiting Onset (ago): day(s) Related Data Home Medications Medication Instructions Recorded Confirmed albuterol sulfate 90 mcg/actuation 2 puff INHALATION Q6H PRN 09/19/20 01/10/21 aerosol inhaler Previous Rx's Medication Instructions Recorded ibuprofen 800 mg tablet 800 mg PO Q8H PRN #60 tab 09/29/20 norgestimate 0.25 mg-ethinyl 1 tab PO DAILY #84 tab 10/12/20 estradiol 35 mcg tablet (Sprintec (28)) bisacodyl 5 mg tablet,delayed 10 mg PO BEDTIME 30 Days #60 tab 11/30/20 release (Dulcolax (bisacodyl)) hydrocortisone 2.5 % topical cream 1 appl FL BID PRN #30 g 03/14/21 with perineal applicator (Anusol-HC) linaclotide 72 mcg capsule 72 mcg PO QAM 30 Days #30 cap 03/14/21 (Linzess) omeprazole 20 mg capsule,delayed 20 mg PO BID 30 Days #60 cap 03/14/21 release doxycycline hyclate 100 mg tablet 100 mg PO BID 7 Days #14 tab 08/13/21 Allergies Allergy/AdvReac Type Severity Reaction Status Date / Time No Known Allergies Allergy Mild NOT Verified 05/25/21 08:45 APPLICABLE Review of Systems Review of Systems: Constitutional: No Fever, No Chills ENT/Mouth: No Ear Pain, No Nasal Congestion, No sore throat Cardiovascular: No Chest Pain, No SOB Respiratory: No Cough Gastrointestinal: No Nausea, No Vomiting, No Diarrhea, No Constipation, No Abdominal pain Genitourinary: No Dysuria, No Hematuria Musculoskeletal: No joint pain, No Myalgias, No Joint Swelling Skin: + Skin Lesions, No rash Neuro: No Weakness, No Numbness Yes all other systems are reviewed and are negative [facility] Past Medical History Attestation statement: The following information was validated with the patient. Medical History Asthma GERD (gastroesophageal reflux disease) History of abnormal cervical Pap smear Surgical History History of bilateral breast reduction surgery History of colonoscopy History of esophagogastroduodenoscopy (EGD) History of loop electrical excision procedure (LEEP) History of tubal ligation Hx of dilation and curettage Family History Family History Father Throat cancer Paternal Grandmother Throat cancer Brother Stomach problems Mother Diabetes Maternal Grandmother Diabetes Other Stroke Social History Social History Household Members: Spouse Alcohol intake: current Alcohol intake frequency: holidays/special occasions only Second Hand Smoke Exposure: No Advance Directives: No Advance Directives Information Provided: Yes Patient : No Current occupational status: employed Current occupation: [employer] Sexual orientation: Straight/Heterosexual Gender identity: Female Physical Exam Vital Signs: Vital Signs: Last Vital Signs Temp 97.4 F 08/12/21 23:39 Pulse 69 08/12/21 23:39 Resp 18 08/12/21 23:39 BP 191/95 H 08/12/21 23:39 Pulse Ox 99 08/12/21 23:39 Body Mass Index 27.7 Const: General: cooperative, healthy appearing and no acute distress Orientation/consciousness: patient oriented x3 Limitations: no limitations HENMT: Head: Yes normal to inspection Ears: hearing grossly normal bilaterally General nose exam: Normal external nose present Face and sinus: Yes normal facial exam Eyes: General: appearance normal, both eyes and all related structures EOM: EOMs intact bilaterally Neck: Neck: Yes normal visual inspection and Yes no meningeal signs Resp: Effort & Inspection: normal respiratory effort and no respiratory distress Cardio: Rate: regular rate GI: Other: + small 1 cm indurated abscess with slight erythema noted to left lower quadrant. +3.5 cm abscess just distal in left lower quadrant w/central fluctuance, +induration and surrounding cellulitis/erythema. Tender to palpation. No drainage. No pointing. Inspection: Yes normal to inspection Palpation (GI): Soft to palpation, nontender, no guarding and not rigid Skin: Rashes: no rashes Neuro: General: patient oriented x3 and no meningeal signs Gait exam (Neuro): Normal gait present Extrem: General: Yes normal to inspection Course Course Course Narrative: -larger abscess I&D'd in the ED. Patient given 1st dose of doxycycline Procedures Abscess I/D Site: abdomen Side (if applicable): left Local Anesthetic: lidocaine 1% Amount of anesthesia used (mL): 3.5 Technique: incised with blade Packing used?: none Medical Decision Making MDM Narrative Medical decision making narrative: 46-year-old female with a past medical history of asthma, GERD, presenting to the ED complaining of abscess/infection to left lower abdomen x5 days. On exam vital signs stable, NAD/nontoxic, two abscesses noted to left lower quadrant, superior small indurated abscess not requiring I&D, lower abscess with central fluctuance and surrounding cellulitis, will I&D in the ED and add doxycycline to regimen Discussed worrisome signs and symptoms and strict return precautions Discharge Plan Discharge Clinical Impression: Abscess of skin or subcutaneous tissue Qualifiers: Site of cutaneous abscess: trunk Site of cutaneous abscess of trunk: abdominal wall Qualified Code(s): L02.211 - Cutaneous abscess of abdominal wall Cellulitis Qualifiers: Site of cellulitis: trunk Site of cellulitis of trunk: abdominal wall Qualified Code(s): L03.311 - Cellulitis of abdominal wall Patient Disposition: Home, Self-Care Instructions: Cellulitis (ED), Abscess (ED), Abscess Follow-up (ED) Additional Instructions: Continue taking previously prescribed Keflex, in addition start taking doxycycline. Keep area dry and clean Please follow-up with her doctor in 2 days for re-evaluation. If the redness is spreading past the lines we created please return to the ED If you develop fever, increasing or worsening pain, continued drainage from area return to the ED Prescriptions: New doxycycline hyclate 100 mg tablet 100 mg PO BID 7 Days Qty: 14 RF: 0 No Action ibuprofen 800 mg tablet 800 mg PO Q8H PRN (Reason: pain) Qty: 60 RF: 1 albuterol sulfate 90 mcg/actuation HFA aerosol inhaler 2 puff inhalation Q6H PRN (Reason: Shortness Of Breath Or Wheezing) RF: 0 bisacodyl [Dulcolax (bisacodyl)] 5 mg tablet,delayed release (DR/EC) 10 mg PO BEDTIME 30 Days Qty: 60 RF: 6 Linzess 72 mcg capsule 72 mcg PO QAM 30 Days Qty: 30 RF: 6 omeprazole 20 mg capsule,delayed release(DR/EC) 20 mg PO BID 30 Days Qty: 60 RF: 3 hydrocortisone [Anusol-HC] 2.5 % cream with perineal applicator 1 appl FL BID PRN (Reason: hemorrhoids) Qty: 30 RF: 3 norgestimate-ethinyl estradiol [Sprintec (28)] 0.25-35 mg-mcg tablet 1 tab PO DAILY Qty: 84 RF: 3 Referrals: [facility] [Primary Care Provider] - 2 days
[2021-08-13 00:50] VITALS: BP 174/87
== END 2021-08-13 01:05 | disposition home or self-care (01) ==
PROVIDERS: Emergency Provider Student in an Organized Health Care Education/Training Program
DX: L02.211 Cutaneous abscess of abdominal wall (principal); L03.311 Cellulitis of abdominal wall; Z79.899 Other long term (current) drug therapy
CPT/HCPCS: 10060; 99284

== ENCOUNTER → 2021-09-11 09:16 | Outpatient (BNVA) | payer MEDICAID, SELFPAY | PROVIDERS: Visit Provider Surgery | DX: L02.211 Cutaneous abscess of abdominal wall (principal) | CPT/HCPCS: 99202 ==

== ENCOUNTER 2021-09-27 08:39 | Outpatient (REF) | payer MEDICAID, SELFPAY ==
--- NOTE | ~2021-09-27 | MM_ITS ---
EXAMINATION: MM SCREENING DIGITAL BREAST TOMOSYNTHESIS, BILATERAL CLINICAL INFORMATION: Screening. Asymptomatic. Remote reduction mammoplasty, 2008. The lifetime risk of breast cancer based on the Tyrer-Cuzick Model is 9%. COMPARISON: Mammography: 08/16/2020, 08/11/2019, 07/22/2018 TECHNIQUE: Digital breast tomosynthesis is performed in both the craniocaudal and mediolateral oblique views along with computer-aided detection (CAD). Synthesized 2D images are generated from the tomosynthesis. FINDINGS: There are scattered areas of fibroglandular density (ACR BI-RADS breast composition Category b). There are no significant masses, abnormal calcifications, or other abnormalities. No significant changes from prior studies. MM/MM tomosynthesis screening BI IMPRESSION: No mammographic evidence of malignancy. ASSESSMENT: BI-RADS 2: Benign RECOMMENDATION: Routine annual mammography screening. This patient's information was entered into a reminder system with a target due date for their next mammogram.
== END 2021-09-27 08:40 | disposition home or self-care (01) ==
LOC: HO.MAMMO 08:39
PROVIDERS: Visit Provider Internal Medicine
DX: Z12.31 Encounter for screening mammogram for malignant neoplasm of breast (principal)
CPT/HCPCS: 77063; 77067

== ENCOUNTER 2021-10-27 13:01 | Outpatient (REF) | payer MEDICAID, SELFPAY ==
[2021-10-27 13:47] LABS: Binax Internal Control QC Valid; Binax Lot number: 9864; Binax Now Covid-19 Ag Negative (Negative)
== END 2021-10-27 13:02 | disposition home or self-care (01) ==
LOC: HO.LAB 13:01
PROVIDERS: Visit Provider Internal Medicine
DX: Z20.822 Contact with and (suspected) exposure to COVID-19 (principal)
CPT/HCPCS: C9803

== ENCOUNTER → 2021-11-27 11:17 | Outpatient (BNVA) | payer MEDICAID, SELFPAY | PROVIDERS: PCP Internal Medicine; Referring Provider Internal Medicine; Visit Provider Nurse Practitioner | DX: K59.04 Chronic idiopathic constipation (principal); K21.9 Gastro-esophageal reflux disease without esophagitis; R13.10 Dysphagia, unspecified; R14.0 Abdominal distension (gaseous); R19.7 Diarrhea, unspecified | CPT/HCPCS: 99212 ==

== ENCOUNTER 2021-12-22 12:00 | Outpatient (REF) | payer MEDICAID, SELFPAY | END 2021-12-22 12:01 | disposition home or self-care (01) | LOC: HO.10HDLNP 12:00 | PROVIDERS: Visit Provider Nurse Practitioner | DX: R19.7 Diarrhea, unspecified (principal); K21.9 Gastro-esophageal reflux disease without esophagitis; K59.04 Chronic idiopathic constipation | CPT/HCPCS: 87045; 87046; 87338 ==

== ENCOUNTER → 2021-12-29 10:21 | Outpatient (BNVA) | payer MEDICAID, SELFPAY | PROVIDERS: PCP Internal Medicine; Referring Provider Internal Medicine; Visit Provider Nurse Practitioner | DX: K59.04 Chronic idiopathic constipation (principal); K21.9 Gastro-esophageal reflux disease without esophagitis; A04.8 Other specified bacterial intestinal infections | CPT/HCPCS: 99212 ==

== ENCOUNTER 2022-07-23 13:03 | Outpatient (REF) | payer MEDICAID, SELFPAY ==
[2022-07-23 13:42] LABS: COVID-19 Test Positive (Negative); IDNOW Serial# 08D9AD1C
== END 2022-07-23 13:04 | disposition home or self-care (01) ==
LOC: HO.LAB 13:03
PROVIDERS: Visit Provider Internal Medicine
DX: Z20.822 Contact with and (suspected) exposure to COVID-19 (principal)
CPT/HCPCS: 87635; C9803

== ENCOUNTER 2022-10-31 12:35 | Outpatient (REF) | payer MEDICAID, SELFPAY ==
--- NOTE | ~2022-10-31 | MM_ITS ---
EXAMINATION: MM SCREENING DIGITAL BREAST TOMOSYNTHESIS, BILATERAL CLINICAL INFORMATION: Screening. Asymptomatic. That is post bilateral breast reduction surgery. The lifetime risk of breast cancer based on the Tyrer-Cuzick Model is 9.9%. COMPARISON: Mammography: September 27, 2021 and studies dating back to January 18, 2016 TECHNIQUE: Digital breast tomosynthesis is performed in both the craniocaudal and mediolateral oblique views along with computer-aided detection (CAD). Synthesized 2D images are generated from the tomosynthesis. FINDINGS: There are scattered areas of fibroglandular density (ACR BI-RADS breast composition Category b). There are no significant masses, abnormal calcifications, or other abnormalities. MM/MM tomosynthesis screening BI IMPRESSION: No significant changes ASSESSMENT: BI-RADS 1: Negative RECOMMENDATION: Routine annual mammography screening. This patient's information was entered into a reminder system with a target due date for their next mammogram.
== END 2022-10-31 12:36 | disposition home or self-care (01) ==
LOC: HO.MAMMO 12:35
PROVIDERS: PCP Internal Medicine; Visit Provider Internal Medicine
DX: Z12.31 Encounter for screening mammogram for malignant neoplasm of breast (principal)
CPT/HCPCS: 77063; 77067

== ENCOUNTER 2023-04-03 12:57 | Outpatient (REF) | payer MEDICAID, SELFPAY ==
[2023-04-03 16:12] LABS: Appearance Urine Turbid; Color Urine Yellow; Glucose Urine UA Negative (Negative); Leukocyte Esterase Urine Negative (Negative); Nitrite Urine Negative (Negative); Specific Gravity - Urine >= 1.030 (1.005-1.025); Urine Blood Negative (Negative); Urine Ketones Trace mg/dL (Negative); Urine Protein Trace mg/dL (Neg-Trace)
[2023-04-06 00:59] LABS: HPV mRNA E6/E7 rflx Not Detected (Not Detected)
== END 2023-04-03 12:58 | disposition home or self-care (01) ==
LOC: HO.LNP 12:57
PROVIDERS: PCP Internal Medicine; Visit Provider Advanced Practice Midwife
DX: Z01.419 Encounter for gynecological examination (general) (routine) without abnormal findings (principal); Z11.51 Encounter for screening for human papillomavirus (HPV); R31.9 Hematuria, unspecified
CPT/HCPCS: 81003; 87086; 87624; 88142

== ENCOUNTER 2023-04-30 08:15 | Outpatient (REF) | payer MEDICAID, SELFPAY ==
[2023-04-30 09:36] LABS: MANUAL DIFF FLAG NO
[2023-04-30 09:59] LABS: Basophils Percent Auto 0.4 % (0-2); Eosinophils Absolute Auto 1.3 X10*3/uL (0.0-0.4); Hematocrit 40.6 % (37.0-47.0); Hemoglobin 13.1 g/dl (12.0-16.0); Imm Gran Abs Auto 0.02 X10*3/uL (0.00-0.03); Imm Gran Pct Auto 0.2 % (0.0-0.4); Lymphocytes Percent Auto 19.1 % (20-40); Mean Corpuscular HGB Conc 32.3 g/dl (31.0-35.0); Mean Corpuscular Hemoglobin 28.6 pg (27.0-33.0); Mean Corpuscular Volume 88.6 fL (80.0-98.0); Monocytes Absolute Auto 0.8 X10*3/uL (0.1-1.2); Monocytes Percent Auto 7.5 % (2-11); Neutrophils Absolute Auto 6.2 x10*3/uL (2.0-8.3); Neutrophils Percent Auto 59.8 % (45-73); Platelet Count 303 X10*3/uL (160-400); Red Blood Count 4.58 X10*6/uL (4.20-5.50); Red Cell Distribution Width 13.1 % (11.0-16.0); White Blood Count 10.3 X10*3/uL (4.8-10.8)
[2023-04-30 10:41] LABS: Alanine Aminotransferase 25 U/L (0-31); Albumin Level 3.7 g/dL (3.5-5.0); Alkaline Phosphatase 56 U/L (39-117); Anion Gap 11 (12-20); Aspartate Amino Transferase 23 U/L (5-31); Bilirubin Total 0.3 mg/dL (0.0-1.0); Blood Urea Nitrogen 12 mg/dL (9-16); Calcium 9.1 mg/dL (8.4-10.2); Carbon Dioxide 24 mmol/L (22-29); Chloride 107 mmol/L (96-108); Estimated Glomerular Filt Rate > 60; Glucose Random 86 mg/dL (60-115); Potassium 3.6 mmol/L (3.3-5.1); Sodium 138 mmol/L (135-145)
== END 2023-04-30 08:16 | disposition home or self-care (01) ==
LOC: HO.LAB 08:15
PROVIDERS: PCP Internal Medicine; Visit Provider Nurse Practitioner
DX: R11.0 Nausea (principal); K59.04 Chronic idiopathic constipation; K21.9 Gastro-esophageal reflux disease without esophagitis; A04.8 Other specified bacterial intestinal infections; R10.13 Epigastric pain; R14.0 Abdominal distension (gaseous)
CPT/HCPCS: 36415; 80053; 85025; 99214

== ENCOUNTER 2023-04-30 08:15 | Outpatient (AMB) | payer MEDICAID, SELFPAY ==
--- NOTE | 2023-04-30 08:26 | A.OFFVIS_ITS ---
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 She is having bloating after eating and she received the Amitiza but at 8mcg bid she is not moving her bowels. We review the tests and there is no indication of infection despite her trip to [place]. She has had no more diarrhea. She is taking something qhs, but she is unsure if it is the famotidine or lanzoprazole. I ask her to check and call up - I had rx'ed lansoprazole bid but insurance many have only covered qd. At any rate, her HB is now well controlled. Will increase the Amitiza 24 mcg twice a day and if this is too strong she can decrease it to once a day. ROV 6 weeks.? (2) GERD (gastroesophageal reflux disease): ?Code(s): K21.9 - Gastro-esophageal reflux disease without esophagitis (3) H. pylori infection: ?Comment: Treated with Helidac equivalent and confirmed eradicated with stool antigen 01/2021 ?Code(s): A04.8 - Other specified bacterial intestinal infections ? ? ? Medications: New lubiprostone (Demarcus cherie) 24 mcg? PO BID 30 days 60 caps 1RF ? ? Discontinued lubiprostone (Demarcus cherie) ?? Discontinu ed Reason:? Doctor 's Order 8 mcg? PO BID 60 c aps 3RF K59.04 - Chronic i diopathic constipa tion ? famotidine (Pepcid ) ?? Discontinued Reason:? Doctor's Order 40 mg? PO BEDTIME 30 tabs 3RF ? TODAY'S VISIT Beninese #declines This patient has been lost to follow-up since January of 2022 She drank some bad margaritas 2 days ago and this rally have her stomach pain - but she has been having ongoing stomach problems and bloating. She lost her son when he was hit by a drunk tow truck driver and I stopped taking care of myself. she has epigastric pain, no dsyphagia, nausea but no vomiting. Her CIC is not controlled, was using senna but now not working. No wt loss. Using OTC simethicone no relief. The Amitiza gave her diarrhea in the past. Insurance not paying for PPI, she is using [facility] and can get pantoprazole 40mg bid inexpensively and will also rx bisacodyl. To get the best deal she has the [facility] The only new medication for her is melatonin at bedtime. Ordering HP stool, basic labs, pancreatic elastase. Had EGD in 2020 for similar sx, all inactive findings. Needs repeat colonoscopy in 2025. ROV 3 weeks. At this time we will evaluate the affects of the pantoprazole and the bisacodyl on her symptoms. [facility] Medical History Abdominal wall abscess Asthma GERD (gastroesophageal reflux disease) History of abnormal cervical Pap smear Surgical History History of bilateral breast reduction surgery History of colonoscopy History of esophagogastroduodenoscopy (EGD) History of loop electrical excision procedure (LEEP) History of tubal ligation Hx of dilation and curettage Family History Father Throat cancer Paternal Grandmother Throat cancer Brother Stomach problems Mother Diabetes Maternal Grandmother Diabetes Other Stroke Social History Household Members: Spouse Alcohol intake: current Alcohol intake frequency: holidays/special occasions only Second Hand Smoke Exposure: No Current occupational status: employed 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 Sexual orientation: Straight/Heterosexual Gender identity: Female Review of Systems Const Denies fatigue, Denies fever(s), Denies night sweats, Reports poor appetite and Denies weight loss ENT Reports Normal hearing present, Denies dysphagia, Denies odynophagia, Denies throat swelling and Denies tongue swelling Card Reports no additional complaints Resp Reports no additional complaints GI Reports abdominal pain, Denies melena, Denies bloating, Denies hematochezia, Reports constipation, Denies GI cramping, Denies dysphagia, Denies excessive flatus, Reports early satiety, Reports heartburn, Denies diarrhea, Reports nausea, Denies odynophagia, Denies vomiting and Denies hematemesis Skin/Breast Denies pruritus, Denies lesions, Denies rash and Denies jaundice Neuro Reports Normal hearing present and Denies Abnormal speech present Psych Reports depression, Denies homicidal ideation and Denies suicidal ideation Endo Denies fatigue Aller/Immun Denies throat swelling and Denies tongue swelling Physical Exam Vital Signs: Last Vital Signs Pulse 65 04/30/23 08:27 BP 149/74 H 04/30/23 08:27 BMI result Body Mass Index 28.8 Const General: cooperative, no acute distress, well developed and well groomed Nutritional Appearance: average body habitus and well nourished Orientation/consciousness: oriented to person, oriented to place and oriented to time Limitations: No language barrier HEENT Head: Yes normocephalic and Yes atraumatic Eyes General: appearance normal, both eyes and all related structures Pupils: Equal, round and reactive pupils present Neck Neck: Yes normal visual inspection and Yes no lymphadenopathy Thyroid: Thyroid normal Resp Effort & Inspection: normal respiratory effort and able to speak in complete sentences Auscultation: clear to auscultation bilaterally Cardio Rate: regular rate Rhythm: regular rhythm Heart sounds: Normal, physiologic split S2 sound present Peripheral pulses: radial pulses present and posterior tibial pulses present GI Inspection: Yes distended and No Abdominal panniculus present Palpation (GI): Soft to palpation, Tenderness to palpation present (GI) in the epigastrum, no guarding, not rigid and No hepatosplenomegaly present Percussion: Yes normal to percussion Auscultation: normal bowel sounds Rectal Exam - Female: deferred Skin General skin exam: no rashes or lesions noted, turgor normal, skin not dry, no jaundice, No spider nevi and no striae Rashes: no rashes Nails: normal Neuro General: oriented to person, oriented to place and oriented to time Cranial nerves: Yes Equal, round and reactive pupils present and Yes Normal hearing present Speech: No Abnormal speech present Extrem General: Yes normal to inspection, No clubbing, No cyanosis and No edema Psych Appearance: grossly normal and well kempt Mental Status: mental status grossly normal Speech and movement: Normal speech and movement present Affect: normal affect Attitude: cooperative Thought process: Normal thought process present and not confabulating Thought content: Normal thought content present Insight: Limited insight present (Psych) Judgement: Limited judgement present (Psych) Assessment & Plan Assessment & Plan (1) Nausea: Code(s): R11.0 - Nausea Plan: Beninese #declines This patient has been lost to follow-up since January of 2022 She drank some bad margaritas 2 days ago and this rally have her stomach pain - but she has been having ongoing stomach problems and bloating. She lost her son when he was hit by a drunk tow truck driver and I stopped taking care of myself. she has epigastric pain, no dsyphagia, nausea but no vomiting. Her CIC is not controlled, was using senna but now not working. No wt loss. Using OTC simethicone no relief. The Amitiza gave her diarrhea in the past. Insurance not paying for PPI, she is using [facility] and can get pantoprazole 40mg bid inexpensively and will also rx bisacodyl. To get the best deal she has the prescriptions [facility]. The only new medication for her is melatonin at bedtime. Ordering HP stool, basic labs, pancreatic elastase. Had EGD in 2020 for similar sx, all inactive findings. Needs repeat colonoscopy in 2025. ROV 3 weeks. At this time we will evaluate the affects of the pantoprazole and the bisacodyl on her symptoms. (2) Chronic idiopathic constipation: Code(s): K59.04 - Chronic idiopathic constipation (3) GERD (gastroesophageal reflux disease): Code(s): K21.9 - Gastro-esophageal reflux disease without esophagitis (4) H. pylori infection: Comment: Treated with Helidac equivalent and confirmed eradicated with stool antigen 01/2021 Code(s): A04.8 - Other specified bacterial intestinal infections (5) Abdominal bloating: Code(s): R14.0 - Abdominal distension (gaseous) (6) Epigastric pain: Code(s): R10.13 - Epigastric pain Orders: Orders H pylori Ag Stool Today R11.0 - Nausea Complete Blood Count Auto Diff Today R11.0 - Nausea Comprehensive Met. Panel Today R11.0 - Nausea Pancreatic Elastase-1 Today R14.0 - Abdominal distension (gaseous) Medications: New pantoprazole (Protonix) 40 mg PO BID 30 days 60 tabs 6RF K21.9 - Gastro- esophageal reflux disease without esophagitis pantoprazole (Protonix) 40 mg PO BID 30 days 60 tabs 6RF K21.9 - Gastro- esophageal reflux disease without esophagitis Refilled bisacodyl (Dulcolax (bisacodyl)) 10 mg (2 x 5 mg) PO BEDTIME 30 days 60 tabs 6RF K59.04 - Chronic idiopathic constipation Discontinued lansoprazole Discontinued Reason: Doctor's Order 30 mg PO BID 60 caps 6RF K21.9 - Gastro-esophageal reflux disease without esophagitis Coding Level of Care Code Est Pt Level 4 (80783) Diagnoses Nausea R11.0 Chronic idiopathic constipation K59.04 GERD (gastroesophageal reflux disease) K21.9 H. pylori infection A04.8 Abdominal bloating R14.0 Epigastric pain R10.13
[2023-04-30 08:27] VITALS: BP 149/74; PULSE 65; BMI 28.8
== END 2023-04-30 09:07 | disposition home or self-care (01) ==
PROVIDERS: PCP Internal Medicine; Visit Provider Nurse Practitioner
DX: R11.0 Nausea (principal); K59.04 Chronic idiopathic constipation; K21.9 Gastro-esophageal reflux disease without esophagitis; A04.8 Other specified bacterial intestinal infections; R14.0 Abdominal distension (gaseous); R10.13 Epigastric pain
CPT/HCPCS: 99214

== ENCOUNTER 2023-05-02 15:16 | Outpatient (REF) | payer MEDICAID, SELFPAY ==
[2023-05-10 22:33] LABS: Pancreatic Elastase-1 >500 mcg/g
== END 2023-05-02 15:17 | disposition home or self-care (01) ==
LOC: HO.LNP 15:16
PROVIDERS: Visit Provider Nurse Practitioner
DX: R11.0 Nausea (principal); R14.0 Abdominal distension (gaseous)
CPT/HCPCS: 82656; 87338

== ENCOUNTER 2023-05-22 08:56 | Outpatient (AMB) | payer MEDICAID, SELFPAY ==
--- NOTE | 2023-05-22 08:57 | A.OFFVIS_ITS ---
Intake Vital Signs 05/22/23 08:59 Height 5 ft Weight 145 lb 15.136 oz BMI 28.5 BP 142/89 H Blood Pressure Location Lt brachial Position Sitting Pulse 85 Intake Visit Reasons: 3 week follow up Intake Note: Bev presents to in office visit today in follow up of abdominal pain. PT CC: pt reports she is feeling well today and states she d/c the Dulcolax d/t abdominal cramps. 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 She lost her son when he was hit by a drunk shuttle van driver and I stopped taking care of myself. she has epigastric pain, no dsyphagia, nausea but no vomiting. Her CIC is not controlled, was using senna but now not working. No wt loss. Using OTC simethicone no relief. The Amitiza gave her diarrhea in the past. Insurance not paying for PPI, she is using [facility] and can get pantoprazole 40mg bid inexpensively and will also rx bisacodyl.? To get the best deal she has the [facility]. The only new medication for her is melatonin at bedtime. Ordering HP stool, basic labs, pancreatic elastase. Had EGD in 2020 for similar sx, all inactive findings. Needs repeat colonoscopy in 2025. ROV 3 weeks.? At this time we will evaluate the affects of the pantoprazole and the bisacodyl on her symptoms. (2) Chronic idiopathic constipation: ?Code(s): K59.04 - Chronic idiopathic constipation (3) GERD (gastroesophageal reflux disease): ?Code(s): K21.9 - Gastro-esophageal reflux disease without esophagitis (4) H. pylori infection: ?Comment: Treated with Helidac equivalent and confirmed eradicated with stool antigen 01/2021 ?Code(s): A04.8 - Other specified bacterial intestinal infections (5) Abdominal bloating: ?Code(s): R14.0 - Abdominal distension (gaseous) (6) Epigastric pain: ?Code(s): R10.13 - Epigastric pain ? ? ? Orders: Orders H pylori Ag StoolA Today R11.0 - Nausea ? Complete Blood Cou nt Auto Diff Today R11.0 - Nausea ? Comprehensive Met. Panel Today R11.0 - Nausea ? Pancreatic Elastas e-1 Today R14.0 - Abdominal distension (gaseou s) ? Medications: New pantoprazole (Prot micaela) 40 mg? PO BID 30 d ays 60 tabs 6RF K21.9 - Gastro-eso phageal reflux dis ease without esoph agitis ? pantoprazole (Prot micaela) 40 mg? PO BID 30 d ays 60 tabs 6RF K21.9 - Gastro-eso phageal reflux dis ease without esoph agitis ? Refilled bisacodyl (Dulcola x (bisacodyl)) 10 mg (2 x 5 mg) P O BEDTIME 30 days 60 tabs 6RF K59.04 - Chronic i diopathic constipa tion ? Discontinued lansoprazole ?? Di scontinued Reason: ? Doctor's Order 30 mg? PO BID 60 c aps 6RF K21.9 - Gastro-eso phageal reflux dis ease without esoph agitis LABS: Laboratory Tests 04/30/23 04/30/23 05/02/23 09:35 09:35 10:25 WBC 10.3 Hgb 13.1 Hct 40.6 Plt Count 303 Estimated GFR > 60 Total Bilirubin 0.3 AST 23 ALT 25 Alkaline Phosphata se 56 Stool Pancreat Hillary stase Stool H. pylori Ag negative 05/02/23 10:25 WBC Hgb Hct Plt Count Estimated GFR Total Bilirubin AST ALT Alkaline Phosphata se Stool Pancreat Hillary stase >500 Stool H. pylori Ag TODAY'S VISIT Dominican #declines She is feeling much better! She found that the bisacodyl caused her a lot of cramping, even at 1 pill, so she went back to the senna. She can keep the bisacodyl for if she gets very backed up, but we will send the senna to her pharmacy. She is continuing her bid protonix. At this time she is satisfied with her GI regimen. ROV 6 mos. [facility] Medical History Abdominal wall abscess Asthma GERD (gastroesophageal reflux disease) History of abnormal cervical Pap smear Surgical History History of bilateral breast reduction surgery History of colonoscopy History of esophagogastroduodenoscopy (EGD) History of loop electrical excision procedure (LEEP) History of tubal ligation Hx of dilation and curettage Family History Father Throat cancer Paternal Grandmother Throat cancer Brother Stomach problems Mother Diabetes Maternal Grandmother Diabetes Other Stroke Social History Household Members: Spouse Alcohol intake: current Alcohol intake frequency: holidays/special occasions only Second Hand Smoke Exposure: No Current occupational status: employed Current occupation: [employer] Sexual orientation: Straight/Heterosexual Gender identity: Female Review of Systems Const Denies fatigue, Denies fever(s), Denies night sweats, Denies poor appetite and Denies weight loss ENT Reports Normal hearing present, Denies dental pain, Denies dysphagia, Denies he aring loss, Denies mouth pain, Denies odynophagia, Denies throat swelling, Denies tongue swelling and Reports other (Dentition adequate) Card Reports no additional complaints Resp Reports no additional complaints GI Denies abdominal pain, Denies melena, Denies bloating, Denies hematochezia, Reports constipation, Denies GI cramping, Denies dysphagia, Denies excessive flatus, Denies early satiety, Reports heartburn, Denies diarrhea, Denies nausea, Denies odynophagia, Denies vomiting and Denies hematemesis Skin/Breast Denies pruritus, Denies lesions, Denies rash and Denies jaundice Neuro Reports Normal hearing present and Denies Abnormal speech present Endo Denies fatigue Aller/Immun Denies throat swelling and Denies tongue swelling Physical Exam Vital Signs: Last Vital Signs Pulse 85 05/22/23 08:59 BP 142/89 H 05/22/23 08:59 BMI result Body Mass Index 28.5 Const General: cooperative, no acute distress, well developed and well groomed Nutritional Appearance: well nourished and overweight Orientation/consciousness: oriented to person, oriented to place and oriented to time Limitations: No language barrier HEENT Head: Yes normocephalic and Yes atraumatic Eyes General: appearance normal, both eyes and all related structures Pupils: Equal, round and reactive pupils present Neck Neck: Yes normal visual inspection and Yes no lymphadenopathy Thyroid: Thyroid normal Resp Effort & Inspection: normal respiratory effort and able to speak in complete sentences Auscultation: clear to auscultation bilaterally Cardio Rate: regular rate Rhythm: regular rhythm Heart sounds: Normal, physiologic split S2 sound present Peripheral pulses: radial pulses present and posterior tibial pulses present GI Inspection: No distended, No Abdominal panniculus present and Yes obesity Palpation (GI): Soft to palpation, nontender, no guarding, not rigid and No hepatosplenomegaly present Percussion: Yes normal to percussion Auscultation: normal bowel sounds Rectal Exam - Female: deferred Skin General skin exam: no rashes or lesions noted, turgor normal, skin not dry, no jaundice, No spider nevi and no striae Rashes: no rashes Nails: normal Neuro General: oriented to person, oriented to place and oriented to time Cranial nerves: Yes Equal, round and reactive pupils present and Yes Normal hearing present Speech: No Abnormal speech present Extrem General: Yes normal to inspection, No clubbing, No cyanosis and No edema Psych Appearance: grossly normal and well kempt Mental Status: mental status grossly normal Speech and movement: Normal speech and movement present Affect: normal affect Attitude: cooperative Thought process: Normal thought process present and not confabulating Thought content: Normal thought content present Insight: Limited insight present (Psych) Judgement: Limited judgement present (Psych) Assessment & Plan Assessment & Plan (1) GERD (gastroesophageal reflux disease): Code(s): K21.9 - Gastro-esophageal reflux disease without esophagitis Plan: Dominican #declines She is feeling much better! She found that the bisacodyl caused her a lot of cramping, even at 1 pill, so she went back to the senna. She can keep the bisacodyl for if she gets very backed up, but we will send the senna to her pharmacy. She is continuing her bid protonix. At this time she is satisfied with her GI regimen. ROV 6 mos. (2) Chronic idiopathic constipation: Code(s): K59.04 - Chronic idiopathic constipation (3) H. pylori infection: Comment: Treated with Helidac equivalent and confirmed eradicated with stool antigen 01/2021 Code(s): A04.8 - Other specified bacterial intestinal infections (4) Epigastric pain: Code(s): R10.13 - Epigastric pain (5) Nausea: Code(s): R11.0 - Nausea Medications: New sennosides (Senna Laxative) 17.2 mg (2 x 8.6 mg) PO BEDTIME 60 tabs 6RF K59.04 - Chronic idiopathic constipation Refilled pantoprazole (Protonix) 40 mg PO BID 30 days 60 tabs 6RF K21.9 - Gastro- esophageal reflux disease without esophagitis On Hold bisacodyl (Dulcolax (bisacodyl)) Hold Comment: Doctor's Order 10 mg (2 x 5 mg) PO BEDTIME 30 days 60 tabs 6RF K59.04 - Chronic idiopathic constipation Coding Level of Care Code Est Pt Level 3 (22669) Diagnoses GERD (gastroesophageal reflux disease) K21.9 Chronic idiopathic constipation K59.04 H. pylori infection A04.8 Epigastric pain R10.13 Nausea R11.0
[2023-05-22 08:59] VITALS: BP 142/89; PULSE 85; BMI 28.5
== END 2023-05-22 09:18 | disposition home or self-care (01) ==
PROVIDERS: PCP Internal Medicine; Visit Provider Nurse Practitioner
DX: K21.9 Gastro-esophageal reflux disease without esophagitis (principal); K59.04 Chronic idiopathic constipation; A04.8 Other specified bacterial intestinal infections; R10.13 Epigastric pain; R11.0 Nausea
CPT/HCPCS: 99213

== ENCOUNTER → 2023-05-22 08:56 | Outpatient (BNVA) | payer MEDICAID, SELFPAY | PROVIDERS: PCP Internal Medicine; Visit Provider Nurse Practitioner | DX: K21.9 Gastro-esophageal reflux disease without esophagitis (principal); K59.04 Chronic idiopathic constipation; R10.13 Epigastric pain; R11.0 Nausea; A04.8 Other specified bacterial intestinal infections | CPT/HCPCS: 99213 ==

== ENCOUNTER 2023-06-03 10:26 | Outpatient (REF) | payer MEDICAID, SELFPAY ==
[2023-06-03 22:17] LABS: Influenza A PCR NEGATIVE (Negative); Influenza B PCR NEGATIVE (Negative); Resp Syncy Virus RNA Qual PCR NEGATIVE (Negative); SARS COV2 PCR INHOUSE NEGATIVE (Negative)
== END 2023-06-03 10:27 | disposition home or self-care (01) ==
LOC: HO.HHCLNP 10:26
PROVIDERS: Visit Provider Internal Medicine
DX: J02.9 Acute pharyngitis, unspecified (principal)
CPT/HCPCS: 0241U

== ENCOUNTER 2023-06-06 17:54 | Outpatient (REF) | payer MEDICAID, SELFPAY ==
[2023-06-07 05:39] LABS: CT PCR NOT DETECTED (Not Detect.); NG PCR NOT DETECTED (Not Detect.)
[2023-06-07 15:42] LABS: BV Int Neg Control Negative (Negative); BV Int Pos Control Positive (Positive)
== END 2023-06-06 17:55 | disposition home or self-care (01) ==
LOC: HO.HHCLNP 17:54
PROVIDERS: Visit Provider Family Medicine
DX: B37.31 Acute candidiasis of vulva and vagina (principal); R30.0 Dysuria
CPT/HCPCS: 0353U; 87086; 87480; 87510; 87660

== ENCOUNTER 2023-10-18 08:53 | Outpatient (REF) | payer MEDICAID, SELFPAY | END 2023-10-18 08:54 | disposition home or self-care (01) | LOC: HO.HHCL 08:53 | PROVIDERS: Visit Provider Internal Medicine | DX: R03.0 Elevated blood-pressure reading, without diagnosis of hypertension (principal) | CPT/HCPCS: 36415; 80048; 80061; 82306; 84443 ==

== ENCOUNTER 2023-11-12 14:42 | Outpatient (REF) | payer MEDICAID, SELFPAY ==
--- NOTE | ~2023-11-12 | MM_ITS ---
EXAMINATION: MM SCREENING DIGITAL BREAST TOMOSYNTHESIS, BILATERAL CLINICAL INFORMATION: Screening. Asymptomatic. Status post bilateral breast reduction. COMPARISON: Mammography: This study is compared with prior exams dating back to 2018. TECHNIQUE: Digital breast tomosynthesis is performed in both the craniocaudal and mediolateral oblique views along with computer-aided detection (CAD). Synthesized 2D images are generated from the tomosynthesis. FINDINGS: There are scattered areas of fibroglandular density (ACR BI-RADS breast composition Category b). There are no significant masses, abnormal calcifications, or other abnormalities. Few, coarse, benign calcifications are present in the lateral aspect of the left breast. MM/MM tomosynthesis screening BI IMPRESSION: No mammographic evidence of malignancy. ASSESSMENT: BI-RADS BI-RADS 2 - Benign Findings RECOMMENDATION: Routine annual mammography screening. 1 year F/U This examination should not preclude the clinical evaluation of a suspicious palpable abnormality. This patient's information was entered into a reminder system with a target due date for their next mammogram.
== END 2023-11-12 14:43 | disposition home or self-care (01) ==
LOC: HO.MAMMO 14:42
PROVIDERS: PCP Internal Medicine; Visit Provider Internal Medicine
DX: Z12.31 Encounter for screening mammogram for malignant neoplasm of breast (principal)
CPT/HCPCS: 77063; 77067

== ENCOUNTER → 2023-11-12 15:00 | Outpatient (BNV) | payer MEDICAID, SELFPAY | PROVIDERS: PCP Internal Medicine; Visit Provider Radiology Diagnostic Radiology | DX: Z12.31 Encounter for screening mammogram for malignant neoplasm of breast (principal) | CPT/HCPCS: 77063; 77067 ==

== ENCOUNTER 2023-12-04 10:50 | Outpatient (REF) | payer MEDICAID, SELFPAY ==
[2023-12-04 13:32] LABS: MANUAL DIFF FLAG NO
[2023-12-04 13:40] LABS: Basophils Percent Auto 0.2 % (0-2); Eosinophils Absolute Auto 0.2 X10*3/uL (0.0-0.4); Eosinophils Percent Auto 2.1 % (0-4); Hematocrit 40.5 % (37.0-47.0); Hemoglobin 13.1 g/dl (12.0-16.0); Imm Gran Abs Auto 0.03 X10*3/uL (0.00-0.03); Imm Gran Pct Auto 0.3 % (0.0-0.4); Lymphocytes Absolute Auto 1.7 X10*3/uL (1.2-4.9); Lymphocytes Percent Auto 18.9 % (20-40); Mean Corpuscular HGB Conc 32.3 g/dl (31.0-35.0); Mean Corpuscular Hemoglobin 27.6 pg (27.0-33.0); Mean Corpuscular Volume 85.3 fL (80.0-98.0); Mean Platelet Volume 9.2 fL (9.4-12.3); Monocytes Absolute Auto 0.9 X10*3/uL (0.1-1.2); Monocytes Percent Auto 10.1 % (2-11); Neutrophils Absolute Auto 6.2 x10*3/uL (2.0-8.3); Neutrophils Percent Auto 68.4 % (45-73); Platelet Count 349 X10*3/uL (160-400); Red Blood Count 4.75 X10*6/uL (4.20-5.50); Red Cell Distribution Width 13.4 % (11.0-16.0)
[2023-12-04 13:58] LABS: Alanine Aminotransferase 34 U/L (0-31); Albumin Level 3.9 g/dL (3.5-5.0); Alkaline Phosphatase 70 U/L (39-117); Anion Gap 10 (12-20); Aspartate Amino Transferase 30 U/L (5-31); Bilirubin Total 0.3 mg/dL (0.0-1.0); Blood Urea Nitrogen 10 mg/dL (9-16); Calcium 9.1 mg/dL (8.4-10.2); Carbon Dioxide 29 mmol/L (22-29); Chloride 107 mmol/L (96-108); Estimated Glomerular Filt Rate > 60; Glucose Random 82 mg/dL (60-115); Lipase 22 U/L (8-78); Potassium 3.9 mmol/L (3.3-5.1); Sodium 142 mmol/L (135-145); Total Protein 7.2 g/dL (6.5-8.0)
== END 2023-12-04 10:51 | disposition home or self-care (01) ==
LOC: HO.HHCL 10:50
PROVIDERS: Visit Provider Emergency Medicine
DX: K21.9 Gastro-esophageal reflux disease without esophagitis (principal)
CPT/HCPCS: 36415; 80053; 83690; 85025

== ENCOUNTER 2023-12-05 11:20 | Outpatient (REF) | payer MEDICAID, SELFPAY ==
[2023-12-06 16:52] LABS: CT PCR NOT DETECTED (Not Detect.); NG PCR NOT DETECTED (Not Detect.)
[2023-12-07 14:42] LABS: BV Int Neg Control Negative (Negative); BV Int Pos Control Positive (Positive)
== END 2023-12-05 11:21 | disposition home or self-care (01) ==
LOC: HO.LAB 11:20
PROVIDERS: PCP Internal Medicine; Visit Provider Advanced Practice Midwife
DX: N95.1 Menopausal and female climacteric states (principal); N93.9 Abnormal uterine and vaginal bleeding, unspecified; R14.0 Abdominal distension (gaseous); Z98.890 Other specified postprocedural states; Z20.2 Contact with and (suspected) exposure to infections with a predominantly sexual mode of transmission
CPT/HCPCS: 0353U; 87480; 87510; 87660; 99212

== ENCOUNTER 2023-12-05 11:20 | Outpatient (AMB) | payer MEDICAID, SELFPAY ==
[2023-12-05 11:34] VITALS: BP 136/78; BMI 29.3
--- NOTE | 2023-12-05 11:34 | A.OFFVIS_ITS ---
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 She has also been having a lot of stomach issues but she always has and she could not really explain to me whether not she had an ulcer but by her description it sounded like she might and she went to same day care here at [facility] yesterday and she had to give a stool sample and they ordered an abdominal ultrasound for her and she has been very very constipated and then she had diarrhea and then she was very bloated kind of also around the same time some of this was going on the bleeding stopped last week. She has a history of a LEEP but she does not remember when. [facility] Medical History Abdominal wall abscess GERD (gastroesophageal reflux disease) History of abnormal cervical Pap smear Asthma Surgical History History of colonoscopy History of esophagogastroduodenoscopy (EGD) Hx of dilation and curettage History of tubal ligation History of bilateral breast reduction surgery History of loop electrical excision procedure (LEEP) Family History Father Throat cancer Paternal Grandmother Throat cancer Brother Stomach problems Mother Diabetes Maternal Grandmother Diabetes Other Stroke Social History Household Members: Spouse Alcohol intake: current Alcohol intake frequency: holidays/special occasions only Second Hand Smoke Exposure: No Current occupational status: employed Current occupation: [employer] Sexual orientation: Straight/Heterosexual Gender identity: Female Female Reproductive History Menstrual Age of Menarche: 11 Duration of menses: other Date of last menstrual period: 11/14/23 (17 days) control method: permanent sterilization Total pregnancies: 3 Full term: 2 Date of last pap smear: 04/04/23 (neg.) History of abnormal pap smear: Yes (unsure date) Physical Exam Vital Signs: Last Vital Signs BP 136/78 12/05/23 11:34 BMI result Body Mass Index 29.3 Other: Vagina pink and moist cervix multiparous very tightly scarred closed tiny black dot of blood clot at os nursery rn to tightly in os os did not even admit Q-tips for STI testing which are being done prophylactically before probable future endometrial biopsy. Suspect endometrial biopsy would be very challenging and might need to be done at the hospital. External Female Exam: normal external appearance Speculum Exam - Vagina: normal appearance of the vagina and normal vaginal discharge Speculum Exam - Cervix: normal appearance of the cervix Bimanual exam- vagina & uterus: normal bimanual exam, uterine size normal, consistency normal, uterine mobility normal, uterine shape normal and non-tender Bimanual Exam- Adnexa, other: normal adnexae, no masses and No adnexal tenderness Assessment & Plan Assessment & Plan (1) History of loop electrical excision procedure (LEEP): Comment: In 2005 status post WILSON 3. Pap neg 2015; Pap done 04/03/2023= neg w neg HPV. Code(s): Z98.890 - Other specified postprocedural states (2) Hx of dilation and curettage: Comment: 09/2020- Hysteroscopy- Dr Valles Code(s): Z98.890 - Other specified postprocedural states (3) Perimenopausal symptoms: Code(s): N95.1 - Menopausal and female climacteric states (4) Abnormal uterine bleeding: Code(s): N93.9 - Abnormal uterine and vaginal bleeding, unspecified (5) Abdominal bloating: Code(s): R14.0 - Abdominal distension (gaseous) Plan Discussed patient's gynecological symptoms as well as her GI symptoms. She is getting worked up for further issues review in the chart that revealed that she did not fact have H pylori in it has been treated in the past. She is getting worked up for her GI issues as we speak ultrasound has been ordered and stool culture or stool testing has been sent. She said she was given a new medication as well. In terms of the abnormal bleeding pattern part of it may be explained by anna menopausal changes she needed to go back to work but I told her I would order blood tests as well though I do not think she is truly in menopause yet but she is in the anna menopausal range I will order thyroid test and FSH. I am ordering a pelvic ultrasound and we will review that and that can be in a tele visit. Most likely she will need an endometrial biopsy just to make sure that there has no pathological finding however it is very likely that it will be a very challenging 1 and so it should probably be done at the hospital with Dr. Batista if it does need to be done. Her cervix is scarred tightly closed status post LEEP. Orders: Orders Thyroid Stimulating Hormone Today N93.9 - Abnormal uterine and vaginal bleeding, unspecified, N95.1 - Menopausal and female climacteric states, Z98.890 - Other specified postprocedural states CT NG by PCR Today Z01.419 - Encounter for gynecological examination (general) (routine) without abnormal findings Bacterial Vaginosis Panel Today Z20.2 - Contact with and (suspected) exposure to infections with a predominantly sexual mode of transmission US pelvic and transvaginal Today N93.9 - Abnormal uterine and vaginal bleeding, unspecified, N95.1 - Menopausal and female climacteric states, R14.0 - Abdominal distension (gaseous), Z98.890 - Other specified postprocedural states Follicle Stimulating Hormone Today N93.9 - Abnormal uterine and vaginal bleeding, unspecified, N95.1 - Menopausal and female climacteric states, Z98.890 - Other specified postprocedural states Coding Level of Care Code Est Pt Level 3 (20850) Diagnoses History of loop electrical excision procedure (LEEP) Z98.890 Hx of dilation and curettage Z98.890 Perimenopausal symptoms N95.1 Abnormal uterine bleeding N93.9 Abdominal bloating R14.0
== END 2023-12-05 12:58 | disposition home or self-care (01) ==
LOC: HO.HWSM 11:20
PROVIDERS: PCP Internal Medicine; Visit Provider Advanced Practice Midwife
DX: Z98.890 Other specified postprocedural states (principal); N95.1 Menopausal and female climacteric states; N93.9 Abnormal uterine and vaginal bleeding, unspecified; R14.0 Abdominal distension (gaseous)
CPT/HCPCS: 99213

== ENCOUNTER 2023-12-05 11:59 | Outpatient (REF) | payer MEDICAID, SELFPAY | END 2023-12-05 12:00 | disposition home or self-care (01) | LOC: HO.LNP 11:59 | PROVIDERS: Visit Provider Emergency Medicine | DX: K21.9 Gastro-esophageal reflux disease without esophagitis (principal) | CPT/HCPCS: 87338 ==

== ENCOUNTER 2023-12-24 07:42 | Outpatient (REF) | payer MEDICAID, SELFPAY ==
--- NOTE | ~2023-12-24 | US_ITS ---
EXAMINATION: US PELVIS CLINICAL INFORMATION: COMPARISON: CT urogram 09/16/2020. TECHNIQUE: Ultrasound of the pelvis is performed using both transabdominal and transvaginal transducers along with Doppler. Transvaginal imaging is performed due to inadequate visualization transabdominally. FINDINGS: Anteverted anteflexed uterus measuring 8 x 4.5 x 5.3 cm. There is a 1 x 0.7 x 0.9 cm intramural anterior uterine lesion, statistically favoring to represent a fibroid. The endometrium measures 1.1 cm in thickness. There are a few nonspecific hyperechoic foci adjacent to the endometrial canal in the uterine fundus that could represent calcifications. There are multiple hyperechoic foci in the cervix also suggestive of calcifications. The right ovary is not visualized. The left ovary is incompletely visualized, measuring approximately 3.7 x 3.3 x 2.6 cm, 11.6 mL. Multiseptated versus closely apposed cysts in the region of the left ovary for example measuring 2.1 x 2.1 x 2.2 cm and 1.7 x 1.8 x 1.6 cm. These appear anechoic with thin andrews and no discrete mural nodules. No free fluid US/US pelvic and transvaginal IMPRESSION: 1. Limited examination due to patient body habitus and overlying bowel gas. 2. The right ovary is not visualized. 3. There is a 1 cm intramural anterior uterine lesion, statistically favoring to represent a fibroid. 4. Nonspecific hyperechoic foci in the upper endometrium and cervix, possibly calcifications. Recommend attention on follow-up. The endometrium is within the upper limits of normal for a premenopausal patient, further evaluation as clinically warranted. 5. The left ovary is not well delineated. Multiseptated versus closely apposed cysts in the region of the left ovary, recommend short-term follow-up pelvic ultrasound in 4-6 weeks or further correlation with pelvic MRI with and without IV contrast. 6. No free fluid.
--- NOTE | ~2023-12-24 | US_ITS ---
EXAMINATION: US ABDOMEN LIMITED CLINICAL INFORMATION: Upper abdominal pain. Rule out gallstones or liver abnormality. COMPARISON: Ultrasound abdomen complete 10/19/2020. CT abdomen and pelvis 02/21/2020. TECHNIQUE: Real-time imaging of the right upper quadrant abdominal viscera. FINDINGS: PANCREAS: Normal. LIVER: Normal. The liver is normal in size. The liver contour is normal. Parenchymal echogenicity is normal. No focal hepatic lesion. There is no intrahepatic biliary duct dilatation seen. GALLBLADDER: Normal. The gallbladder is physiologically distended without evidence of stones, sludge, polyps, wall thickening or pericholecystic fluid. COMMON BILE DUCT: Normal in caliber measuring 0.4 cm in diameter. RIGHT KIDNEY: Normal. No hydronephrosis. No renal calculi or focal parenchymal lesions. The kidney measures 10.3 cm in maximum dimension. FREE FLUID: None. US/US abdomen limited IMPRESSION: No significant sonographic abnormality.
== END 2023-12-24 07:43 | disposition home or self-care (01) ==
LOC: HO.US 07:42
PROVIDERS: Absent Provider Advanced Practice Midwife; Visit Provider Emergency Medicine
DX: R10.13 Epigastric pain (principal); N95.1 Menopausal and female climacteric states; N93.9 Abnormal uterine and vaginal bleeding, unspecified; R14.0 Abdominal distension (gaseous); Z98.890 Other specified postprocedural states
CPT/HCPCS: 76705; 76830; 76856

== ENCOUNTER 2024-01-14 09:47 | Outpatient (AMB) | payer MEDICAID, SELFPAY ==
--- NOTE | 2024-01-14 10:47 | A.OFFVIS_ITS ---
Intake Intake Visit Reasons: TV US follow up Allergies No Known Allergies Allergy (Mild, Verified 01/14/24 10:47) NOT APPLICABLE Is last menstrual period known: Yes Last menstrual period: 01/11/24 HPI TV US follow up HPI Details This is a tele visit to discuss patient's ultrasound results she had come in after having a very unusual. That was different in appearance and her periods in general have been more painful lately. She also has a history of a LEEP in the past she was seen and evaluated at the previous visit and a pelvic ultrasound was ordered citing her abdominal bloating. At this visit today we reviewed the ultrasound and her symptoms and made a plan of care from here. REPLACED BY [facility] Medical History Abnormal uterine bleeding Abdominal wall abscess GERD (gastroesophageal reflux disease) History of abnormal cervical Pap smear Asthma Surgical History History of colonoscopy History of esophagogastroduodenoscopy (EGD) Hx of dilation and curettage History of tubal ligation History of bilateral breast reduction surgery History of loop electrical excision procedure (LEEP) Family History Father Throat cancer Paternal Grandmother Throat cancer Brother Stomach problems Mother Diabetes Maternal Grandmother Diabetes Other Stroke Social History Household Members: Spouse Alcohol intake: current Alcohol intake frequency: holidays/special occasions only Second Hand Smoke Exposure: No Current occupational status: employed 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 Attending Dr: Cuco Cisneros MD Ordering Physician: Virgie Ceja CNM Date of Service: 12/24/23 Procedure(s): US pelvic and transvaginal Accession Number(s): [id number] cc: Virgie Ceja CNM~ EXAMINATION: US PELVIS CLINICAL INFORMATION: COMPARISON: CT urogram 09/16/2020. TECHNIQUE: Ultrasound of the pelvis is performed using both transabdominal and transvaginal transducers along with Doppler. Transvaginal imaging is performed due to inadequate visualization transabdominally. FINDINGS: Anteverted anteflexed uterus measuring 8 x 4.5 x 5.3 cm. There is a 1 x 0.7 x 0.9 cm intramural anterior uterine lesion, statistically favoring to represent a fibroid. The endometrium measures 1.1 cm in thickness. There are a few nonspecific hyperechoic foci adjacent to the endometrial canal in the uterine fundus that could represent calcifications. There are multiple hyperechoic foci in the cervix also suggestive of calcifications. The right ovary is not visualized. The left ovary is incompletely visualized, measuring approximately 3.7 x 3.3 x 2.6 cm, 11.6 mL. Multiseptated versus closely apposed cysts in the region of the left ovary for example measuring 2.1 x 2.1 x 2.2 cm and 1.7 x 1.8 x 1.6 cm. These appear anechoic with thin andrews and no discrete mural nodules. No free fluid US/US pelvic and transvaginal IMPRESSION: 1. Limited examination due to patient body habitus and overlying bowel gas. 2. The right ovary is not visualized. 3. There is a 1 cm intramural anterior uterine lesion, statistically favoring to represent a fibroid. 4. Nonspecific hyperechoic foci in the upper endometrium and cervix, possibly calcifications. Recommend attention on follow-up. The endometrium is within the upper limits of normal for a premenopausal patient, further evaluation as clinically warranted. 5. The left ovary is not well delineated. Multiseptated versus closely apposed cysts in the region of the left ovary, recommend short-term follow-up pelvic ultrasound in 4-6 weeks or further correlation with pelvic MRI with and without IV contrast. 6. No free fluid. Dictated By: Lakshmi Meadows Signed By: <Electronically signed by Lakshmi Meadows in OV> 12/25/23 1703 DD/ 0824 TD/TT: lev: Bev Tomlin Age/Sex: 47/F Attending: Virgie Ceja CNM : 1975 Submitted by: Virgie Ceja CNM Copies to: Ariella Scales MD MR #: [id number] Status: DEP REF Collected: 04/03/23 Location: [facility] Received: 04/04/23 Interpretation Satisfactory for evaluation. Coccobacilli consistent with shift in vaginal hair. Negative for intraepithelial lesion or malignancy. HPV mRNA E6/E7: NOT DETECTED This assay detects E6/E7 viral messenger RNA (mRNA) from 14 high-risk HPV types (16, 18, 31, 33, 35, 39, 45, 51, 52, 56, 58, 59, 66, 68) HPV testing performed by [facility], [place], [place]. See reference laboratory pion of the EMR for entire report. Clinical Information LMP: 01/26/23 Previous PAP test: 08/10/16, WNL Material Received ThinPrep-Cervical Copies To Ariella Scales MD [address] [place] [address] [id number] [place] [address] Electronically Signed By: LOY Negrete (ASCP) 04/24/23 5368 The Pap Test is a screening procedure with the inherent possibility of both false negative and false positive results. Results should be interpreted in the context of historic and current clinical findings. Reliability of the Pap Test is enhanced by performing the test on a regular repetitive basis. Patient: Bev Tomlin [facility]: 47[id number] MR#: [id number] Page 1 of 1 Assessment & Plan Assessment & Plan (1) Abnormal uterine bleeding: Comment: Larisa menopausal see ultrasound will have her see Dr. Batista after I reviewed the ultrasound with her. Code(s): N93.9 - Abnormal uterine and vaginal bleeding, unspecified (2) History of loop electrical excision procedure (LEEP): Comment: In 2005 status post WILSON 3. Pap neg 2015; Pap done 04/03/2023= neg w neg HPV. Code(s): Z98.890 - Other specified postprocedural states (3) Hx of dilation and curettage: Comment: 09/2020- Hysteroscopy- Dr Valles Code(s): Z98.890 - Other specified postprocedural states (4) Dysmenorrhea, unspecified: Comment: Periods have become more painful in last several months, Code(s): N94.6 - Dysmenorrhea, unspecified (5) Ovarian cyst: Code(s): N83.209 - Unspecified ovarian cyst, unspecified side Plan I reviewed the patient's bleeding history and pain history and previous procedure she has done has had done she did not exactly remember when but she has had a LEEP procedure in the past which apparently has contributed to her cervix being very very tightly closed such that it did not even admit a Q-tip at the last visit. Additionally she had a history of a hysteroscopy with Dr. Valles, which is noted in the chart as well. The ultrasound findings also noted a cystic structure in her left ovary as well as a small fibroid and a thickened endometrium upper level of normal for premenopausal. A follow-up ultrasound as well as consideration to ordering an MRI was recommended in the ultrasound. Given all of this, and as previously discussed and re reviewed with the patient today the next follow-up visit needs to be with Dr. Batista I told her to expect a possible endometrial biopsy biopsy at that visit if it is possible to do it. Additionally he may be considering whether not to proceed with MRI or other testing and he will be making those decisions and plans with her. I am ordering a follow-up ultrasound in about 2 weeks which is corresponding to the timing that they requested and her visit after that can be with Dr. Batista. Orders: Orders US pelvic and transvaginal 2 Weeks N83.209 - Unspecified ovarian cyst, unspecified side, N93.9 - Abnormal uterine and vaginal bleeding, unspecified, N94.6 - Dysmenorrhea, unspecified, Z98.890 - Other specified postprocedural states Coding Level of Care Code Tele Est Pt Level 3 (39591) Diagnoses Abnormal uterine bleeding N93.9 History of loop electrical excision procedure (LEEP) Z98.890 Hx of dilation and curettage Z98.890 Dysmenorrhea, unspecified N94.6 Ovarian cyst N83.209 Time Spent (min) 24 Comment 5 cr/12 speaking w pt ,hx and plan, 7 charting=24
== END 2024-01-14 13:49 | disposition home or self-care (01) ==
LOC: HO.HWSM 09:48
PROVIDERS: PCP Internal Medicine; Visit Provider Advanced Practice Midwife
DX: N93.9 Abnormal uterine and vaginal bleeding, unspecified (principal); Z98.890 Other specified postprocedural states; N94.6 Dysmenorrhea, unspecified; N83.209 Unspecified ovarian cyst, unspecified side
CPT/HCPCS: 99213

== ENCOUNTER → 2024-01-14 09:47 | Outpatient (BNVA) | payer MEDICAID, SELFPAY | PROVIDERS: PCP Internal Medicine; Visit Provider Advanced Practice Midwife | DX: N93.9 Abnormal uterine and vaginal bleeding, unspecified (principal); N94.6 Dysmenorrhea, unspecified; N83.209 Unspecified ovarian cyst, unspecified side; Z98.890 Other specified postprocedural states; R68.81 Early satiety | CPT/HCPCS: 99212 ==

== ENCOUNTER 2024-01-14 10:55 | Outpatient (AMB) | payer MEDICAID, SELFPAY ==
--- NOTE | 2024-01-14 11:00 | MHC.OFFVIS ---
Vital Signs 01/14/24 11:01 Height 5 ft Weight 149 lb 14.629 oz BMI 29.3 BP 131/89 Blood Pressure Location Lt brachial Position Sitting Pulse 70 Intake Visit Reasons: 6 month follow up ABD pain RS from december Intake Note: Bev presents to in office visit today in follow up of abdominal pain. CC: Patient c/o epigastric pain after eating and abdominal bloating. Patient sates she has BMs when she takes Dulcolax and Senna but unable to have BM without medications. She c/o heartburn since yesterday. Poison Information Specialist Required: No Accompanied by: Self / Same As Patient Allergies No Known Allergies Allergy (Mild, Verified 01/14/24 10:47) NOT APPLICABLE HPI HPI 6 month follow up ABD pain RS from december: Details: Assessment & Plan (1) GERD (gastroesophageal reflux disease): Code(s): K21.9 - Gastro-esophageal reflux disease without esophagitis Plan: [place] #declines She is feeling much better! She found that the bisacodyl caused her a lot of cramping, even at 1 pill, so she went back to the senna. She can keep the bisacodyl for if she gets very backed up, but we will send the senna to her pharmacy. She is continuing her bid protonix. At this time she is satisfied with her GI regimen. ROV 6 mos. (2) Chronic idiopathic constipation: Code(s): K59.04 - Chronic idiopathic constipation (3) H. pylori infection: Comment: Treated with Helidac equivalent and confirmed eradicated with stool antigen 01/2021 Code(s): A04.8 - Other specified bacterial intestinal infections (4) Epigastric pain: Code(s): R10.13 - Epigastric pain (5) Nausea: Code(s): R11.0 - Nausea Medications: New sennosides (Senna Laxative) 17.2 mg (2 x 8.6 mg) PO BEDTIME 60 tabs 6RF K59.04 - Chronic idiopathic constipation Refilled pantoprazole (Protonix) 40 mg PO BID 30 days 60 tabs 6RF K21.9 - Gastro-esophageal reflux disease without esophagitis On Hold bisacodyl (Dulcolax (bisacodyl)) Hold Comment: Doctor's Order 10 mg (2 x 5 mg) PO BEDTIME 30 days 60 tabs 6RF K59.04 - Chronic idiopathic constipation TODAY'S VISIT [place] #declines She was doing well, but when she went to [facility] and the bloating was severe. It is now intermittent, but she has her menses now and she is not sure how bad it is. She has trouble with eating steak and pizza with diarrhea. She also has trouble with pork. We discuss a trial of creon and she is agreeable. She is also reporting early satiety with nausea and the food just sits. I think a GES would be prudent. She does better with the senna than the bisacodyl and is moving her bowels well. She continues on the pantoprazole and does not do well with simethicone. rOV 6 weeks. [facility] Medical History Abnormal uterine bleeding Abdominal wall abscess GERD (gastroesophageal reflux disease) History of abnormal cervical Pap smear Asthma Surgical History History of colonoscopy History of esophagogastroduodenoscopy (EGD) Hx of dilation and curettage History of tubal ligation History of bilateral breast reduction surgery History of loop electrical excision procedure (LEEP) Family History Father Throat cancer Paternal Grandmother Throat cancer Brother Stomach problems Mother Diabetes Maternal Grandmother Diabetes Other Stroke Social History Household Members: Spouse Alcohol intake: current Alcohol intake frequency: holidays/special occasions only Second Hand Smoke Exposure: No Current occupational status: employed 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 Sexual orientation: Straight/Heterosexual Gender identity: Female Female Reproductive History Menstrual Age of Menarche: 11 Review of Systems Const Denies fatigue, Denies fever(s), Denies night sweats, Reports poor appetite and Denies weight loss ENT Reports Normal hearing present, Denies dental pain, Denies dysphagia, Denies hearing loss, Denies mouth pain, Denies odynophagia, Denies throat swelling, Denies tongue swelling and Reports other (Dentition adequate) Card Reports no additional complaints Resp Reports no additional complaints GI Details: Denies abdominal pain, Denies melena, Reports bloating, Denies hematochezia, Reports constipation, Denies GI cramping, Denies dysphagia, Denies excessive flatus, Reports early satiety, Reports heartburn, Denies diarrhea, Reports nausea, Denies odynophagia, Denies vomiting and Denies hematemesis Skin/Breast Denies pruritus, Denies lesions, Denies rash and Denies jaundice Neuro Reports Normal hearing present and Denies Abnormal speech present Endo Denies fatigue Aller/Immun Denies throat swelling and Denies tongue swelling Physical Exam Vital Signs: Last Vital Signs Pulse 70 01/14/24 11:01 BP 131/89 01/14/24 11:01 BMI result Body Mass Index 29.3 Const General: cooperative, no acute distress, well developed and well groomed Nutritional Appearance: well nourished and overweight Orientation/consciousness: oriented to person, oriented to place and oriented to time Limitations: No language barrier HEENT Head: Yes normocephalic and Yes atraumatic Eyes General: appearance normal, both eyes and all related structures Pupils: Equal, round and reactive pupils present Neck Neck: Yes normal visual inspection and Yes no lymphadenopathy Thyroid: Thyroid normal Resp Effort & Inspection: normal respiratory effort and able to speak in complete sentences Auscultation: clear to auscultation bilaterally Cardio Rate: regular rate Rhythm: regular rhythm Heart sounds: Normal, physiologic split S2 sound present Peripheral pulses: radial pulses present and posterior tibial pulses present GI Inspection: No distended, No Abdominal panniculus present and Yes obesity Palpation (GI): Soft to palpation, nontender, no guarding, not rigid and No hepatosplenomegaly present Percussion: Yes normal to percussion Auscultation: normal bowel sounds Rectal Exam - Female: deferred Skin General skin exam: no rashes or lesions noted, turgor normal, skin not dry, no jaundice, No spider nevi and no striae Rashes: no rashes Nails: normal Neuro General: oriented to person, oriented to place and oriented to time Cranial nerves: Yes Equal, round and reactive pupils present and Yes Normal hearing present Speech: No Abnormal speech present Extrem General: Yes normal to inspection, No clubbing, No cyanosis and No edema Psych Appearance: grossly normal and well kempt Mental Status: mental status grossly normal Speech and movement: Normal speech and movement present Affect: normal affect Attitude: cooperative Thought process: Normal thought process present and not confabulating Thought content: Normal thought content present Insight: Limited insight present (Psych) Judgement: Limited judgement present (Psych) Assessment & Plan Assessment & Plan (1) Early satiety: Code(s): R68.81 - Early satiety Category: Medical Plan [place] #declines She was doing well, but when she went to [facility] and the bloating was severe. It is now intermittent, but she has her menses now and she is not sure how bad it is. She has trouble with eating steak and pizza with diarrhea. She also has trouble with pork. We discuss a trial of creon and she is agreeable. She is also reporting early satiety with nausea and the food just sits. I think a GES would be prudent. She does better with the senna than the bisacodyl and is moving her bowels well. She continues on the pantoprazole and does not do well with simethicone. rOV 6 weeks. Orders: Orders NM gastric emptying study 01/14/24 R68.81 - Early satiety Medications: New [id number] 24,000-76,000 -120,000 unit (Creon) 2 caps PO BID 120 caps 6RF 30 days K58.9 - Irritable bowel syndrome without diarrhea Refilled pantoprazole (Protonix) 40 mg PO BID 60 tabs 6RF 30 days K21.9 - Gastro-esophageal reflux disease without esophagitis sennosides (Senna Laxative) 17.2 mg (2 x 8.6 mg) PO BEDTIME 60 tabs 6RF K59.04 - Chronic idiopathic constipation Discontinued bisacodyl Discontinued Reason: Doctor's Order 10 mg (2 x 5 mg) PO BEDTIME 30 days 60 tabs 6RF K59.04 - Chronic idiopathic constipation Coding Level of Care Code Est Pt Level 3 (04454) Diagnoses Early satiety R68.81
[2024-01-14 11:01] VITALS: BP 131/89; PULSE 70; BMI 29.3
== END 2024-01-14 12:28 | disposition home or self-care (01) ==
PROVIDERS: PCP Internal Medicine; Visit Provider Nurse Practitioner
DX: R68.81 Early satiety (principal)
CPT/HCPCS: 99213

== ENCOUNTER 2024-01-24 13:48 | Outpatient (REF) | payer MEDICAID, SELFPAY ==
--- NOTE | ~2024-01-24 | US_ITS ---
EXAMINATION: US PELVIS CLINICAL INFORMATION: Follow-up ovarian cyst. 48-year-old, LMP unknown COMPARISON: 12/24/2023 TECHNIQUE: Ultrasound of the pelvis is performed using both transabdominal and transvaginal transducers along with Doppler. Transvaginal imaging is performed due to inadequate visualization transabdominally. FINDINGS: Uterus: The uterus is anteverted and measures 7.5 x 4.4 x 4.8 cm. The double wall endometrial thickness is 5 mm. The uterus is smooth in contour and has normal myometrial echogenicity. Posterior uterine body subserosal 8 mm fibroid is again noted. Adnexa: Right ovary is not visualized. No large right adnexal mass.. There is no pelvic ascites or fluid collection. Left ovary measures 2.0 x 1.1 x 1.3 cm. Intraovarian corpus luteum measures 6 x 6 x 8 mm. Interval resolution of previously seen 2.2 cm cyst. US/US pelvic and transvaginal IMPRESSION: Interval resolution of 2.2 cm left ovarian cyst.
== END 2024-01-24 13:49 | disposition home or self-care (01) ==
LOC: HO.US 13:48
PROVIDERS: PCP Internal Medicine; Visit Provider Obstetrics & Gynecology
DX: N83.209 Unspecified ovarian cyst, unspecified side (principal); N94.6 Dysmenorrhea, unspecified; N93.9 Abnormal uterine and vaginal bleeding, unspecified; Z98.890 Other specified postprocedural states
CPT/HCPCS: 76830; 76856

== ENCOUNTER 2024-02-17 14:15 | Outpatient (AMB) | payer MEDICAID, SELFPAY ==
[2024-02-17 14:17] VITALS: BP 128/76; BMI 29.1
--- NOTE | 2024-02-17 14:17 | MHC.OFFVIS ---
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 Required: No Allergies No Known Allergies Allergy (Mild, Verified 02/17/24 14:18) NOT APPLICABLE Medication List - Last Reconciled 02/17/24 by Virgie Ceja CNM albuterol sulfate 90 mcg/actuation 2 puffs inhalation Q6H PRN amlodipine 5 mg PO QAM cholecalciferol (vitamin D3) (Vitamin D3) 25 mcg PO DAILY esomeprazole magnesium (Nexium) 40 mg PO DAILY famotidine 40 mg PO BEDTIME [id number]-dwsfqos 24,000-76,000 -120,000 unit (Creon) 2 caps PO BID 30 days ondansetron 4 mg PO Q8H PRN pantoprazole (Protonix) 40 mg PO BID 30 days sennosides (Senna Laxative) 17.2 mg (2 x 8.6 mg) PO BEDTIME Patient : No HPI HPI Ultrasound Follow up: Details: Patient is here to review her follow-up ultrasound. She had 1st come to the office because she had missed her period for 2 and half months and then on November 14 she had a very unusual lack heavy painful. During that exam was says that her cervix was extremely tightly closed because of a previous LEEP procedure. It was obvious to this provider that I would not be able to do any endometrial biopsy in fact her cervix barely admitted a Q-tip. Her last Pap smear was negative last year. Ultrasound was ordered which showed some complexity a cyst on the left side. A follow-up ultrasound was ordered per radiology recommendations which shows interval resolution of that cyst essentially normal otherwise. The patient started with a period on 02/14, 2 days ago and has her period currently and feels that it is normal. I reviewed the ultrasound with her today and the previous 1 as well. And review that as per my assessment at her exam in December it was clear that I would not be able to do her endometrial biopsy so I will be referring her to Dr. Batista for possible endometrial biopsy I told her that if he feels there is another plan to be made he will let her know. It is reassuring that she currently has what feels to her like a regular. Discussed the range of larisa menopausal stopping and starting of menses. She gets hot flashes sometimes but it is hard to tell whether not it is her blood pressure being elevated. PFSH Medical History Abnormal uterine bleeding Abdominal wall abscess GERD (gastroesophageal reflux disease) History of abnormal cervical Pap smear Asthma Surgical History History of colonoscopy History of esophagogastroduodenoscopy (EGD) Hx of dilation and curettage History of tubal ligation History of bilateral breast reduction surgery History of loop electrical excision procedure (LEEP) Family History Father Throat cancer Paternal Grandmother Throat cancer Brother Stomach problems Mother Diabetes Maternal Grandmother Diabetes Other Stroke Social History Household Members: Spouse Alcohol intake: current Alcohol intake frequency: holidays/special occasions only Second Hand Smoke Exposure: No Patient : No Current occupational status: employed Current occupation: [employer] Sexual orientation: Straight/Heterosexual Gender identity: Female Female Reproductive History Menstrual Age of Menarche: 11 control method: other (tubal ligation) Date of last pap smear: 04/04/23 (negative) Physical Exam Vital Signs: Last Vital Signs BP 128/76 02/17/24 14:17 BMI result Body Mass Index 29.1 Results Reviewed Results Reviewed: Patient: Bev Tomlin MR#: [id number] : 1975 Acct:[id number] Age/Sex: 48 / F ADM Date: 01/24/24 Loc: HO.US Attending Dr: Mauricio Batista MD Ordering Physician: Virgie Ceja CNM Date of Service: 01/24/24 Procedure(s): US pelvic and transvaginal Accession Number(s): [id number] cc: Ariella Scales MD; Virgie Ceja CNM~ EXAMINATION: US PELVIS CLINICAL INFORMATION: Follow-up ovarian cyst. 48-year-old, LMP unknown COMPARISON: 12/24/2023 TECHNIQUE: Ultrasound of the pelvis is performed using both transabdominal and transvaginal transducers along with Doppler. Transvaginal imaging is performed due to inadequate visualization transabdominally. FINDINGS: Uterus: The uterus is anteverted and measures 7.5 x 4.4 x 4.8 cm. The double wall endometrial thickness is 5 mm. The uterus is smooth in contour and has normal myometrial echogenicity. Posterior uterine body subserosal 8 mm fibroid is again noted. Adnexa: Right ovary is not visualized. No large right adnexal mass.. There is no pelvic ascites or fluid collection. Left ovary measures 2.0 x 1.1 x 1.3 cm. Intraovarian corpus luteum measures 6 x 6 x 8 mm. Interval resolution of previously seen 2.2 cm cyst. US/US pelvic and transvaginal IMPRESSION: Interval resolution of 2.2 cm left ovarian cyst. Dictated By: Sugey Valencia MD Signed By: <Electronically signed by Sugey Valencia MD in [place]> 01/29/24 [address] [address] Ultrasound Report Signed Patient: Bev Tomlin MR#: [id number] : 1975 Acct:[id number] Age/Sex: 48 / F ADM Date: 12/24/23 Loc: .US Attending Dr: Cuco Cisneros MD Ordering Physician: Virgie Ceja CNM Date of Service: 12/24/23 Procedure(s): US pelvic and transvaginal Accession Number(s): [id number] cc: Virgie Ceja CNM~ EXAMINATION: US PELVIS CLINICAL INFORMATION: COMPARISON: CT urogram 09/16/2020. TECHNIQUE: Ultrasound of the pelvis is performed using both transabdominal and transvaginal transducers along with Doppler. Transvaginal imaging is performed due to inadequate visualization transabdominally. FINDINGS: Anteverted anteflexed uterus measuring 8 x 4.5 x 5.3 cm. There is a 1 x 0.7 x 0.9 cm intramural anterior uterine lesion, statistically favoring to represent a fibroid. The endometrium measures 1.1 cm in thickness. There are a few nonspecific hyperechoic foci adjacent to the endometrial canal in the uterine fundus that could represent calcifications. There are multiple hyperechoic foci in the cervix also suggestive of calcifications. The right ovary is not visualized. The left ovary is incompletely visualized, measuring approximately 3.7 x 3.3 x 2.6 cm, 11.6 mL. Multiseptated versus closely apposed cysts in the region of the left ovary for example measuring 2.1 x 2.1 x 2.2 cm and 1.7 x 1.8 x 1.6 cm. These appear anechoic with thin andrews and no discrete mural nodules. No free fluid US/US pelvic and transvaginal IMPRESSION: 1. Limited examination due to patient body habitus and overlying bowel gas. 2. The right ovary is not visualized. 3. There is a 1 cm intramural anterior uterine lesion, statistically favoring to represent a fibroid. 4. Nonspecific hyperechoic foci in the upper endometrium and cervix, possibly calcifications. Recommend attention on follow-up. The endometrium is within the upper limits of normal for a premenopausal patient, further evaluation as clinically warranted. 5. The left ovary is not well delineated. Multiseptated versus closely apposed cysts in the region of the left ovary, recommend short-term follow-up pelvic ultrasound in 4-6 weeks or further correlation with pelvic MRI with and without IV contrast. 6. No free fluid. Dictated By: Lakshmi Meadows Signed By: <Electronically signed by Lakshmi Meadows in [place]> 12/25/23 1703 DD/ 0824 TD/TT: Line Locator: DD/ 1425 TD/TT: Line Locator: Assessment & Plan Assessment & Plan (1) Ovarian cyst: Code(s): N83.209 - Unspecified ovarian cyst, unspecified side Category: Medical (2) Abnormal uterine bleeding: Comment: Larisa menopausal see ultrasound will have her see Dr. Batista after I reviewed the ultrasound with her. Code(s): N93.9 - Abnormal uterine and vaginal bleeding, unspecified Category: Medical (3) History of loop electrical excision procedure (LEEP): Comment: In 2005 status post WILSON 3. Pap neg 2015; Pap done 04/03/2023= neg w neg HPV. Code(s): Z98.890 - Other specified postprocedural states Category: Surgical (4) Hx of dilation and curettage: Comment: 09/2020- Hysteroscopy- Dr Valles Code(s): Z98.890 - Other specified postprocedural states Category: Surgical (5) Perimenopausal symptoms: Code(s): N95.1 - Menopausal and female climacteric states Category: Medical Plan Patient is here to review her follow-up ultrasound. She had 1st come to the office because she had missed her period for 2 and half months and then on November 14 she had a very unusual lack heavy painful. During that exam was says that her cervix was extremely tightly closed because of a previous LEEP procedure. It was obvious to this provider that I would not be able to do any endometrial biopsy in fact her cervix barely admitted a Q-tip. Her last Pap smear was negative last year. Ultrasound was ordered which showed some complexity a cyst on the left side. A follow-up ultrasound was ordered per radiology recommendations which shows interval resolution of that cyst essentially normal otherwise. The patient started with a period on 02/14, 2 days ago and has her period currently and feels that it is normal. I reviewed the ultrasound with her today and the previous 1 as well. And review that as per my assessment at her exam in December it was clear that I would not be able to do her endometrial biopsy so I will be referring her to Dr. Batista for possible endometrial biopsy I told her that if he feels there is another plan to be made he will let her know. It is reassuring that she currently has what feels to her like a regular period, but there still may need to be evaluation. Discussed the range of larisa menopausal stopping and starting of menses. She gets hot flashes sometimes but it is hard to tell whether not it is her blood pressure being elevated. Coding Level of Care Code Est Pt Level 3 (19189) Diagnoses Ovarian cyst N83.209 Abnormal uterine bleeding N93.9 History of loop electrical excision procedure (LEEP) Z98.890 Hx of dilation and curettage Z98.890 Perimenopausal symptoms N95.1
== END 2024-02-17 16:22 | disposition home or self-care (01) ==
LOC: HO.HWSM 14:15
PROVIDERS: PCP Internal Medicine; Visit Provider Advanced Practice Midwife
DX: N83.209 Unspecified ovarian cyst, unspecified side (principal); N93.9 Abnormal uterine and vaginal bleeding, unspecified; Z98.890 Other specified postprocedural states; N95.1 Menopausal and female climacteric states
CPT/HCPCS: 99213

== ENCOUNTER → 2024-02-17 14:15 | Outpatient (BNVA) | payer MEDICAID, SELFPAY | PROVIDERS: PCP Internal Medicine; Visit Provider Advanced Practice Midwife | DX: N83.209 Unspecified ovarian cyst, unspecified side (principal); N93.9 Abnormal uterine and vaginal bleeding, unspecified; N95.1 Menopausal and female climacteric states; Z98.890 Other specified postprocedural states | CPT/HCPCS: 99212 ==

== ENCOUNTER 2024-07-07 14:53 | Outpatient (AMB) | payer MEDICAID, SELFPAY ==
[2024-07-07 15:02] VITALS: BP 120/70; BMI 29.1
--- NOTE | 2024-07-07 15:02 | MHC.OFFVIS ---
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 Allergies No Known Allergies Allergy (Mild, Verified 07/07/24 15:03) NOT APPLICABLE Medication List - Last Reconciled 07/07/24 by Virgie Ceja CNM albuterol sulfate 90 mcg/actuation 2 puffs inhalation Q6H PRN amlodipine 5 mg PO QAM cholecalciferol (vitamin D3) (Vitamin D3) 25 mcg PO DAILY esomeprazole magnesium (Nexium) 40 mg PO DAILY famotidine 40 mg PO BEDTIME 90 days rskkdh-wmspxvpm-kibiwix 24,000-76,000 -120,000 unit (Creon) 2 caps PO BID 30 days ondansetron 4 mg PO Q8H PRN pantoprazole (Protonix) 40 mg PO BID 30 days sennosides (Senna Laxative) 17.2 mg (2 x 8.6 mg) PO BEDTIME Is last menstrual period known: No HPI HPI vag burn: Details: Patient is here because for 3 days she has had vaginal burning when the urine comes out and itching she thinks it is a yeast infection she is not sexually active. In the past she has found the pills work better for her than the cream but she would be interested in having prescription for both when I offered her both . On questioning about her past bleeding history she did not make an appointment to see Dr. Batista as planned for possible evaluation of this (please see the previous notes), and she says she did get a period the felt normal to her in April and it lasted 5 days. She thinks she is just in the anna menopausal time and she thinks everything is okay she does get hot flashes. She says she has a hard time remembering things because she is under a lot of stress with her son who is 33 years old.. Speculum exam was consistent with the inflammation the labia minora consistent with yeast infection we will treat with Diflucan and I also offered miconazole cream for comfort and she accepted both. She promised me that she would start keeping better periods and if there was anything else that was truly abnormal that she needs seek an appointment and as previously discussed any potential evaluation of the endometrial lining would have to be done with Dr. Batista as her cervix is so tightly closed as to preclude entrance of anything even a Q-tip( it is status post LEEP) [facility] Medical History Abnormal uterine bleeding Abdominal wall abscess GERD (gastroesophageal reflux disease) History of abnormal cervical Pap smear Asthma Surgical History History of colonoscopy History of esophagogastroduodenoscopy (EGD) Hx of dilation and curettage History of tubal ligation History of bilateral breast reduction surgery History of loop electrical excision procedure (LEEP) Family History Father Throat cancer Paternal Grandmother Throat cancer Brother Stomach problems Mother Diabetes Maternal Grandmother Diabetes Other Stroke Social History Household Members: Spouse Alcohol intake: current Alcohol intake frequency: holidays/special occasions only Second Hand Smoke Exposure: No Current occupational status: employed Current occupation: [employer] Sexual orientation: Straight/Heterosexual Gender identity: Female Female Reproductive History Menstrual Age of Menarche: 11 control method: permanent sterilization Total pregnancies: 3 Full term: 2 History of abnormal pap smear: Yes Physical Exam Vital Signs: Last Vital Signs BP 120/70 07/07/24 15:02 BMI result Body Mass Index 29.1 Other: Her labia minora a bright red inflamed no abnormal discharge or exudate at all vagina is also reddened cervix is status post LEEP smooth with a tiny pinpoint os that does not even admit a Q-tip cervix is long close thick mobile nontender nontender on bimanual exam uterus small anteverted mobile nontender. External Female Exam: normal external appearance Speculum Exam - Vagina: normal appearance of the vagina and normal vaginal discharge Speculum Exam - Cervix: normal appearance of the cervix Bimanual exam- vagina & uterus: normal bimanual exam, uterine size normal, consistency normal, uterine mobility normal, uterine shape normal and non-tender Bimanual Exam- Adnexa, other: normal adnexae, no masses and No adnexal tenderness Assessment & Plan Assessment & Plan (1) History of loop electrical excision procedure (LEEP): Comment: In 2005 status post WILSON 3. Pap neg 2015; Pap done 04/03/2023= neg w neg HPV. Code(s): Z98.890 - Other specified postprocedural states Category: Surgical (2) Hx of dilation and curettage: Comment: 09/2020- Hysteroscopy- Dr Valles Code(s): Z98.890 - Other specified postprocedural states Category: Surgical (3) Yeast infection of the vagina: Code(s): B37.31 - Acute candidiasis of vulva and vagina Category: Medical Plan Patient is here because for 3 days she has had vaginal burning when the urine comes out and itching she thinks it is a yeast infection she is not sexually active. In the past she has found the pills work better for her than the cream but she would be interested in having prescription for both when I offered her both . On questioning about her past bleeding history she did not make an appointment to see Dr. Batista as planned for possible evaluation of this (please see the previous notes), and she says she did get a period the felt normal to her in April and it lasted 5 days. She thinks she is just in the anna menopausal time and she thinks everything is okay she does get hot flashes. She says she has a hard time remembering things because she is under a lot of stress with her son who is 33 years old.. Essentially though, the patient feels that she is fine and was just missing some periods because of her anna menopausal state and that she is fine. Speculum exam was consistent with the inflammation the labia minora consistent with yeast infection we will treat with Diflucan and I also offered miconazole cream for comfort and she accepted both. She promised me that she would start keeping better periods and if there was anything else that was truly abnormal that she needs seek an appointment and as previously discussed any potential evaluation of the endometrial lining would have to be done with Dr. Batista as her cervix is so tightly closed as to preclude entrance of anything even a Q-tip( it is status post LEEP) Medications: New miconazole nitrate 2% (Miconazole-7) 1 appful vaginal BEDTIME 7 days 45 grams 2RF fluconazole may repeat second dose 72 hrs after first dose if symptoms persist 150 mg PO Q3D 2 doses 2 tabs 2RF Coding Level of Care Code Est Pt Level 3 (20938) Diagnoses History of loop electrical excision procedure (LEEP) Z98.890 Hx of dilation and curettage Z98.890 Yeast infection of the vagina B37.31
== END 2024-07-07 16:11 | disposition home or self-care (01) ==
PROVIDERS: PCP Internal Medicine; Visit Provider Advanced Practice Midwife
DX: Z98.890 Other specified postprocedural states (principal); B37.31 Acute candidiasis of vulva and vagina
CPT/HCPCS: 99213

== ENCOUNTER 2024-07-07 14:59 | Outpatient (REF) | payer MEDICAID, SELFPAY ==
[2024-07-08 11:52] LABS: CT PCR NOT DETECTED (Not Detect.); NG PCR NOT DETECTED (Not Detect.)
[2024-07-08 13:31] LABS: Bacterial Vaginosis PCR NEGATIVE (Negative); Candida Group PCR DETECTED (Not Detect); Candida glab krusei PCR NOT DETECTED (Not Detect); Trichomonas vaginalis PCR NOT DETECTED (Not Detect)
== END 2024-07-07 15:00 | disposition home or self-care (01) ==
LOC: HO.LAB 14:59
PROVIDERS: PCP Internal Medicine; Visit Provider Advanced Practice Midwife
DX: B37.31 Acute candidiasis of vulva and vagina (principal); Z98.890 Other specified postprocedural states
CPT/HCPCS: 0352U; 87491; 87591; 99212

== ENCOUNTER → 2024-11-05 07:44 | Outpatient (REF) | payer MEDICAID, SELFPAY ==
--- NOTE | ~2024-11-05 | NM_ITS ---
ADDENDUM #1 Impression should correctly read as follows, Abnormal 4 hour solid food gastric emptying study. Electronically signed by: Eric Barriga MD 11/05/2024 03:03 PM EST RP ORIGINAL REPORT EXAMINATION: NM RADIONUCLIDE SOLID FOOD GASTRIC EMPTYING 4-HOUR STUDY CLINICAL INFORMATION: Early satiety COMPARISON: None TECHNIQUE: A standard meal consisting of 4 oz of Egg Beaters brand tagged with 0.96 microcuries Tc-99m Sulfur Colloid, 8 oz water and 2 slices of toast with jelly was administered orally to the patient. Images were obtained using a dual head gamma camera in the anterior and posterior projections over of the stomach immediately post ingestion and at hourly intervals up to 4 hours post ingestion. The anterior and posterior counts at each time interval were averaged using the geometric mean and expressed as percentage of the immediate post ingestion counts. FINDINGS: There is good visualization of activity in the stomach immediately post ingestion. As the study progresses, there is good clearance of activity from the stomach and visualization of progressively increasing small bowel activity. By the end of the study, there is almost no retention noted in the stomach. Retention in the stomach at each time interval was: 1 hour 90% (normal 37%-90%) 2 hours 65% (normal 30%-60%) 3 hours 43% 4 hours 27% (normal 0%-10%) IMPRESSION: Normal 4-hour solid food gastric emptying study. For solid meal, rapid gastric emptying is less than 30% at 60 minutes. Delayed gastric emptying criteria is more than 60% remaining at 120 minutes or more than 10% at 240 minutes. The 4-hour value is the best discriminator of a normal or abnormal result). Gastric emptying study grading per JNMT Consensus Recommendations in 2008 (https://tech.snmjournals.org/content/36/44) Grade 1 (mild retention): 11-20% at 4h Grade 2 (moderate retention): 21-35% at 4h Grade 3 (severe retention): 36-50% at 4h Grade 4 (very severe retention): >50% retention at 4h Electronically signed by: Eric Barriga MD 11/05/2024 12:36 PM EST RP NM/NM gastric emptying study IMPRESSION: Normal 4-hour solid food gastric emptying study. For solid meal, rapid gastric emptying is less than 30% at 60 minutes. Delayed gastric emptying criteria is more than 60% remaining at 120 minutes or more than 10% at 240 minutes. The 4-hour value is the best discriminator of a normal or abnormal result). Gastric emptying study grading per JNMT Consensus Recommendations in 2008 (https://tech.snmjournals.org/content/36//44) Grade 1 (mild retention): 11-20% at 4h Grade 2 (moderate retention): 21-35% at 4h Grade 3 (severe retention): 36-50% at 4h Grade 4 (very severe retention): >50% retention at 4h Electronically signed by: Eric Barriga MD 11/05/2024 12:[address] [facility]
== END ==
LOC: HO.NUCMED 07:44
PROVIDERS: Visit Provider Nurse Practitioner
DX: R68.81 Early satiety (principal)
CPT/HCPCS: 78264; A9541

== ENCOUNTER → 2024-11-05 07:44 | Outpatient (BNV) | payer MEDICAID, SELFPAY | PROVIDERS: Visit Provider Radiology Diagnostic Radiology | DX: R68.81 Early satiety (principal) | CPT/HCPCS: 78264 ==

== ENCOUNTER → 2024-11-17 14:45 | Outpatient (BNV) | payer MEDICAID, SELFPAY | PROVIDERS: PCP Internal Medicine; Visit Provider Internal Medicine | DX: Z12.31 Encounter for screening mammogram for malignant neoplasm of breast (principal) | CPT/HCPCS: 77063; 77067 ==

== ENCOUNTER 2025-03-12 10:26 | Outpatient (AMB) | payer MEDICAID, SELFPAY ==
--- NOTE | 2025-03-12 10:33 | A.OFFVIS_ITS ---
Vital Signs 03/12/25 10:35 Height 5 ft Weight 149 lb BMI 29.1 BP 140/76 H Blood Pressure Location Rt brachial Position Sitting Pulse 66 Pulse Source Pulse Oximeter Pulse Oximetry (%) 99 Oxygen Delivery Method Room Air Intake Visit Reasons: f/u early satiety Intake Note: Patient follow up for early satiety & Gastric Empty text results. Patient cc: C.O. recent exacerbation of CIC, GERD, epigastric pain, and bloating / abd distention. Pt states that she had been doing well up until the last 3-4 days. No additional concerns at this time. 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 It is now intermittent, but she has her menses now and she is not sure how bad it is. She has trouble with eating steak and pizza with diarrhea. She also has trouble with pork. We discuss a trial of creon and she is agreeable. She is also reporting early satiety with nausea and the food just sits. I think a GES would be prudent. She does better with the senna than the bisacodyl and is moving her bowels well. She continues on the pantoprazole and does not do well with simethicone. rOV 6 weeks. Orders: Orders NM gastric emptying study 01/14/24 R68.81 - Early satiety Medications: New [id number] 24,000-76,000 -120,000 unit (Creon) 2 caps PO BID 120 caps 6RF 30 days K58.9 - Irritable bowel syndrome without diarrhea Refilled pantoprazole (Protonix) 40 mg PO BID 60 tabs 6RF 30 days K21.9 - Gastro- esophageal reflux disease without esophagitis sennosides (Senna Laxative) 17.2 mg (2 x 8.6 mg) PO BEDTIME 60 tabs 6RF K59.04 - Chronic idiopathic constipation Discontinued bisacodyl Discontinued Reason: Doctor's Order 10 mg (2 x 5 mg) PO BEDTIME 30 days 60 tabs 6RF K59.04 - Chronic idiopathic constipation GASTRIC EMPTYING STUDY 11/05/24 ADDENDUM #1 Impression should correctly read as follows, Abnormal 4 hour solid food gastric emptying study. TODAY'S VISIT Bulgarian # declines I started on Reglan 5 mg 3 times a day. The reglan is working well for her w/o s/e and she is eating better. She still will have boating with certain foods, but the creon has fallen off of her regimen. I advise her to re start this. She is not moving her bowels very well, admits to only taking senna intermittently. Because she has motility problems, she really needs to take 2 senna EVERY NIGHT unless she gets diarrhea. At times the senna gives her pain, I think this is r/t waiting too long before taking it. ROV 6 weeks. [facility] Medical History (Updated 03/12/25 @ 10:58 by JC Amin) Yeast infection of the vagina H. pylori infection RUQ abdominal pain Dysphagia Abdominal bloating Colon cancer screening Abdominal wall abscess Acute diarrhea Well woman exam with routine gynecological exam Abnormal uterine bleeding GERD (gastroesophageal reflux disease) History of abnormal cervical Pap smear Asthma Surgical History (Updated 03/12/25 @ 10:58 by JC Amin) History of loop electrical excision procedure (LEEP) Hx of dilation and curettage History of colonoscopy History of esophagogastroduodenoscopy (EGD) History of tubal ligation History of bilateral breast reduction surgery Family History Father Throat cancer Paternal Grandmother Throat cancer Brother Stomach problems Mother Diabetes Maternal Grandmother Diabetes Other Stroke Social History Household Members: Spouse Alcohol intake: current Alcohol intake frequency: holidays/special occasions only Second Hand Smoke Exposure: No Current occupational status: employed Current occupation: [employer] Sexual orientation: Straight/Heterosexual Gender identity: Female Female Reproductive History Menstrual Age of Menarche: 11 Review of Systems Const Denies fatigue, Denies fever(s), Denies night sweats, Denies poor appetite and Denies weight loss ENT Reports Normal hearing present, Denies dental pain, Denies dysphagia, Denies hearing loss, Denies mouth pain, Denies odynophagia, Denies throat swelling, Denies tongue swelling and Reports other (Dentition adequate) Card Reports no additional complaints Resp Reports no additional complaints GI Details: Denies abdominal pain, Denies melena, Reports bloating, Denies hematochezia, Reports constipation, Denies GI cramping, Denies dysphagia, Denies excessive flatus, Denies early satiety, Reports heartburn, Denies diarrhea, Denies nausea, Denies odynophagia, Denies vomiting and Denies hematemesis Skin/Breast Denies pruritus, Denies lesions, Denies rash and Denies jaundice Neuro Reports Normal hearing present and Denies Abnormal speech present Endo Denies fatigue Aller/Immun Denies throat swelling and Denies tongue swelling Physical Exam Vital Signs: Last Vital Signs Pulse 66 03/12/25 10:35 BP 140/76 H 03/12/25 10:35 Pulse Ox 99 03/12/25 10:35 Oxygen Delivery Method Room Air 03/12/25 10:35 BMI result Body Mass Index 29.1 Const General: cooperative, no acute distress, well developed and well groomed Nutritional Appearance: well nourished and obese Orientation/consciousness: oriented to person, oriented to place and oriented to time Limitations: No language barrier HEENT Head: Yes normocephalic and Yes atraumatic Eyes General: appearance normal, both eyes and all related structures Pupils: Equal, round and reactive pupils present Neck Neck: Yes normal visual inspection and Yes no lymphadenopathy Thyroid: Thyroid normal Resp Effort & Inspection: normal respiratory effort and able to speak in complete sentences Auscultation: clear to auscultation bilaterally Cardio Rate: regular rate Rhythm: regular rhythm Heart sounds: Normal, physiologic split S2 sound present Peripheral pulses: radial pulses present and posterior tibial pulses present GI Inspection: Yes distended, Yes Abdominal panniculus present and Yes obesity Palpation (GI): Soft to palpation, nontender, no guarding, not rigid and No hepatosplenomegaly present Percussion: Yes normal to percussion Auscultation: normal bowel sounds Rectal Exam - Female: deferred Skin General skin exam: no rashes or lesions noted, turgor normal, skin not dry, no jaundice, No spider nevi and no striae Rashes: no rashes Nails: normal Neuro General: oriented to person, oriented to place and oriented to time Cranial nerves: Yes Equal, round and reactive pupils present and Yes Normal hearing present Speech: No Abnormal speech present Extrem General: Yes normal to inspection, No clubbing, No cyanosis and No edema Psych Appearance: grossly normal and well kempt Mental Status: mental status grossly normal Speech and movement: Normal speech and movement present Affect: normal affect Attitude: cooperative Thought process: Normal thought process present and not confabulating Thought content: Normal thought content present Insight: Fair insight present (Psych) and Limited insight present (Psych) Judgement: Fair judgement present (Psych) and Limited judgement present (Psych) Assessment & Plan Assessment & Plan (1) Gastroparesis: Comment: moderate 2024 GES Code(s): K31.84 - Gastroparesis Category: Medical (2) Chronic idiopathic constipation: Code(s): K59.04 - Chronic idiopathic constipation Category: Medical (3) Early satiety: Code(s): R68.81 - Early satiety Category: Medical (4) Nausea: Code(s): R11.0 - Nausea Category: Medical (5) Epigastric pain: Code(s): R10.13 - Epigastric pain Category: Medical (6) GERD (gastroesophageal reflux disease): Code(s): K21.9 - Gastro-esophageal reflux disease without esophagitis Category: Medical Plan Bulgarian # declines I started on Reglan 5 mg 3 times a day. The reglan is working well for her w/o s/e and she is eating better. She still will have boating with certain foods, but the creon has fallen off of her regimen. I advise her to re start this. She is not moving her bowels very well, admits to only taking senna intermittently. Because she has motility problems, she really needs to take 2 senna EVERY NIGHT unless she gets diarrhea. At times the senna gives her pain, I think this is r/t waiting too long before taking it. ROV 6 weeks. Medications: Refilled [id number] 24,000-76,000 -120,000 unit (Creon) 2 caps PO BID 120 caps 6RF 30 days K58.9 - Irritable bowel syndrome, unspecified metoclopramide HCl (Reglan) 5 mg PO .tidac 90 tabs 6RF K31.84 - Gastroparesis sennosides (Senna Laxative) 17.2 mg (2 x 8.6 mg) PO BEDTIME 60 tabs 6RF K59.04 - Chronic idiopathic constipation metoclopramide HCl (Reglan) 5 mg PO .tidac 90 tabs 6RF K31.84 - Gastroparesis Discontinued pantoprazole (Protonix) Discontinued Reason: Doctor's Order 40 mg PO BID 30 days 60 tabs 6RF K21.9 - Gastro-esophageal reflux disease without esophagitis Coding Level of Care Code Est Pt Level 3 (72984) Diagnoses Gastroparesis K31.84 Chronic idiopathic constipation K59.04 Early satiety R68.81 Nausea R11.0 Epigastric pain R10.13 GERD (gastroesophageal reflux disease) K21.9
[2025-03-12 10:35] VITALS: BP 140/76; PULSE 66; O2SAT 99; BMI 29.1
--- OUTSIDE RECORDS SUMMARY | 2025-03-12 11:08 | XMS_ITS | Encounter Summary ---
Author Organization [employer] Address [address] [place] [address] Care Team Providers Care In Store Banker Name Role Phone Ariella Scales MD Primary Care Provide r Reason for Visit * Reason Comments Med Refill Encounter Details Date Type Department Care Team ([facility] Contact Info) Description 08/24/2023 Refill [facility] [address] [place], [place] [id number] [facility] [address] [place], [place] [id number] Constipation, unspecified constipation type Social History Tobacco Use Types Packs/Day Years Used Date Smoking Tobacco: Never Passive Smoke Exposure: Never Smokeless Tobacco: Never Alcohol Use Standard Drinks/Week Comments Yes 0 (1 standard drink = 0.6 oz pur e alcohol) oca Depression Answer Date Recorded Patient Health Questionnaire-9 Score 4 02/06/2023 Housing Stability Answer Date Recorded What is your housing situation today? I have pako sunshine 08/12/[address] you li ve. Do you have problems with any of the following? None of the above 08/12/2023 Food Insecurity Answer Date Recorded Within the past 12 months, y ou worried that your food would run out before you got money to buy more: Never True 08/12/2023 Within the past 12 months,th e food you bought just didn't last and you didn't have enough money to get more: Never True Transportation Answer Date Recorded In the past 12 months, has l ack of transportation kept you from medical appts, meetings, work or from getting things needed for daily living? No 08/12/2023 Utilities Answer Date Recorded In the past 12 months, has t he electric, gas, oil or water company threatened to shut off services in your home? No 08/12/2023 Depression Answer Date Recorded Patient Health Questionnaire-2 Score 3 02/06/2023 Comments Unknown Sex and Gender Information Value Date Recorded Sex Assigned at Female 08/13/2022 10:16 AM EDT Legal Sex Female 10:16 AM EDT Gender Identity Female 08/13/2022 10:16 AM EDT Sexual Orientation Straight 08/13/2022 10 :16 AM EDT documented as of this encounter Plan of Treatment Not on file documented as of this encounter Visit Diagnoses Diagnosis Constipation, unspecified constipation type documented in this encounter Additional Health Concerns Assessment Noted Time PHQ-9 Depression Total Score: 4 02/07/20 23 8:57 AM EDT documented as of this encounter Care Teams In Store Banker Relationship Specialty Start Date End Date Ariella Scales MD [address] [place] [id number] PCP - General Family Medicine 06/25/18 documented as of this encounter
== END 2025-03-12 11:28 | disposition home or self-care (01) ==
LOC: HO.HGI 10:27
PROVIDERS: PCP Internal Medicine; Visit Provider Nurse Practitioner
DX: K31.84 Gastroparesis (principal); K59.04 Chronic idiopathic constipation; R68.81 Early satiety; R11.0 Nausea; R10.13 Epigastric pain; K21.9 Gastro-esophageal reflux disease without esophagitis
CPT/HCPCS: 99213

== ENCOUNTER → 2025-03-12 10:26 | Outpatient (BNVA) | payer MEDICAID, SELFPAY | PROVIDERS: PCP Internal Medicine; Visit Provider Nurse Practitioner | DX: K21.9 Gastro-esophageal reflux disease without esophagitis (principal); K58.9 Irritable bowel syndrome, unspecified; K59.04 Chronic idiopathic constipation; K31.84 Gastroparesis; R10.13 Epigastric pain; R68.81 Early satiety; R11.0 Nausea | CPT/HCPCS: 99212 ==

== ENCOUNTER 2025-04-28 14:43 | Outpatient (AMB) | payer MEDICAID, SELFPAY ==
--- NOTE | 2025-04-28 14:44 | MHC.OFFVIS ---
Vital Signs 04/28/25 14:46 Height 5 ft Weight 147 lb 11.355 oz BMI 28.8 BP 133/81 Blood Pressure Location Lt brachial Position Sitting Pulse 69 Intake Visit Reasons: 6 week paresis, gerd Intake Note: Bev presents in the office as a 6 week follow up for Paresis and GERD. CC: She states that her pains are back in her stomach. She was sent the medication but she has bloating and yesterday and today she feels like she is because her stomach is so full. She states that she had the same issue the last time she was seen. She goes to the bathroom normally. Her acid reflux has been good! Product Marketing Specialist Required: No Allergies No Known Allergies Allergy (Mild, Verified 04/28/25 14:47) NOT APPLICABLE HPI HPI 6 week paresis, gerd: Details: Assessment & Plan (1) Gastroparesis: Comment: moderate 2024 GES Code(s): K31.84 - Gastroparesis Category: Medical (2) Chronic idiopathic constipation: Code(s): K59.04 - Chronic idiopathic constipation Category: Medical (3) Early satiety: Code(s): R68.81 - Early satiety Category: Medical (4) Nausea: Code(s): R11.0 - Nausea Category: Medical (5) Epigastric pain: Code(s): R10.13 - Epigastric pain Category: Medical (6) GERD (gastroesophageal reflux disease): Code(s): K21.9 - Gastro-esophageal reflux disease without esophagitis Category: Medical Plan Lebanese # declines I started on Reglan 5 mg 3 times a day. The reglan is working well for her w/o s/e and she is eating better. She still will have boating with certain foods, but the creon has fallen off of her regimen. I advise her to re start this. She is not moving her bowels very well, admits to only taking senna intermittently. Because she has motility problems, she really needs to take 2 senna EVERY NIGHT unless she gets diarrhea. At times the senna gives her pain, I think this is r/t waiting too long before taking it. ROV 6 weeks. Medications: Refilled knvduw-uxeurgmy-azyijee 24,000-76,000 -120,000 unit (Creon) 2 caps PO BID 120 caps 6RF 30 days K58.9 - Irritable bowel syndrome, unspecified metoclopramide HCl (Reglan) 5 mg PO .tidac 90 tabs 6RF K31.84 - Gastroparesis sennosides (Senna Laxative) 17.2 mg (2 x 8.6 mg) PO BEDTIME 60 tabs 6RF K59.04 - Chronic idiopathic constipation metoclopramide HCl (Reglan) 5 mg PO .tidac 90 tabs 6RF K31.84 - Gastroparesis Discontinued pantoprazole (Protonix) Discontinued Reason: Doctor's Order 40 mg PO BID 30 days 60 tabs 6RF K21.9 - Gastro-esophageal reflux disease without esophagitis On 04/06/25 @ 10:57 Memo Amaral Wrote To Memo Amaral Memo Amaral completed item. On 04/05/25 @ 15:49 Isiah Stewart Wrote To Memo Amaral Noted thank you. Pt is interested and would like to have this sent to [facility]. On 04/05/25 @ 15:44 Memo Amaral Wrote To Isiah Stewart reviewed chart she has gastroparesis, we can try her on azithormycin for 5 days may help-its an anitbiotic but can help the stomach movement On 04/05/25 @ 10:54 Isiah Stewart Wrote To Memo Amaral Dr. Amaral, pt called back again stating that she is still experiencing severe bloating and distention and is very uncomfortable and hoping that we can offer some form of insight or treatment for her current status. Please advise. Pt typically sees January. On 04/02/25 @ 16:31 Isiah Stewart Wrote To Anel Castrejon Just checking again because pt left another voicemail. Is there anything we can do to help her through the weekend? Pt would be open to receiving Rx for simethicone or alternative to assist with the bloating and distention. Please advise. On 04/01/25 @ 09:04 Anel Castrejon Wrote To Anel Castrejon LucíaJanuary completed item. On 04/01/25 @ 08:28 Isiah Stewart Wrote To Castrejon STP again this morning. Pt states that she is doing better today and having less pain. However, pt still experiencing pretty significant distention and bloating. Pt hoping that we could offer some insight as to how to manage that particular sx. Discussed with pt the concept of why we would need the imaging and that if her sx suddenly get worse again, it is in her best interest to go the ED to get STAT imaging and eval. Pt verbalized understanding. On 03/31/25 @ 16:14 LucíaJanuary Wrote To Isiah Stewart LucíaJanuary removed from item. On 03/31/25 @ 16:14 LucíaAnel Wrote To LucíaJanuary (2) With this she needs to go to the ER since I can't do any STAT work up or imaging. On 03/31/25 @ 14:58 Isiah Stewart Wrote To Lucía [phone] is the pt's phone #. Pt states that she is having severe abd distention + bloating. Pt is going to the bathroom OK and is taking senna nightly but is still having sharp pains. Pt states that if she eats anything, regardless of what it is, she experiences this sharp pain. Pt is hoping that we can offer some advice as to how she should proceed for the evening. Please advise. On 03/31/25 @ 14:37 Agustina Grubbs Wrote To Isiah Stewart Patient LVM returning your call On 03/31/25 @ 11:55 Isiah Stewart Wrote To Isiah Stewart Attempted contacting pt. Pt not available. Family member took missed call note and will have pt call back when they are free On 03/31/25 @ 09:07 Anel Castrejon Wrote To Isiah Stewart Of course she should stop the Creon. I just need to clarify, if she is still taking the senna, if she taking it every night, if this isn't working then I will progress to something else but I need to be clear on what she is doing. On 03/31/25 @ 08:57 Martina Mcgill Wrote To Lucía January - see below re: Creon On 03/30/25 @ 09:44 Franny Lancaster Wrote To Gastro Nurses Patient was prescribed Creon, per patient states the medication is not working and has increased bloating and pain,states this feels different than her regular discomfort. She is unable to move her bowels. Would like to try another medication. She looking for more information on options. Please advise. Best call back number [phone] TODAY'S VISIT Lebanese declines Her current regimen should consist of pantoprazole 40 mg twice a day, Reglan 5 mg 3 times a day, senna 2 tabs at bedtime, and Creon 2 caps twice a day. She has been feeling poorly since shortly after I last saw her. She called while I was on vacation and apparently at that time Has son tried prescribing her Zithromax to see if it would make any difference. It did not. She describes pain in the epigastric area that is tight, and she has severe bloating. She can not really say what makes it better or worse but she has been eating very lightly and drinking less out of fear of making the pain worse. At times the pain was sharp and stabbing. There has been no other new medications introduced or big diet changes and no signs of an infectious illness. I reviewed her old studies in the past there has been no sign of gallstones and her last EGD was in 2020 and was relatively unremarkable. She is due for another screening colonoscopy in 2025 so I think will order the EGD and colonoscopy now. We will get another ultrasound to see if there is any problem with the gallbladder. I think it is possible that the metoclopramide at 5 mg simply isn't doing enough and this is the source of the epigastric pain. We will try advancing her to 10 mg and give her 4 times a day dosing to see if this makes a difference in the pain. She has been taking her senna every day and she is moving her bowels quite well. Return office visit in 2-3 weeks [facility] Medical History (Updated 04/28/25 @ 15:37 by JC Amin) Epigastric pain Nausea Yeast infection of the vagina H. pylori infection RUQ abdominal pain Dysphagia Abdominal bloating Colon cancer screening Abdominal wall abscess Acute diarrhea Well woman exam with routine gynecological exam Abnormal uterine bleeding GERD (gastroesophageal reflux disease) History of abnormal cervical Pap smear Asthma Surgical History History of loop electrical excision procedure (LEEP) Hx of dilation and curettage History of colonoscopy History of esophagogastroduodenoscopy (EGD) History of tubal ligation History of bilateral breast reduction surgery Family History Father Throat cancer Paternal Grandmother Throat cancer Brother Stomach problems Mother Diabetes Maternal Grandmother Diabetes Other Stroke Social History Household Members: Spouse Alcohol intake: current Alcohol intake frequency: holidays/special occasions only Second Hand Smoke Exposure: No Current occupational status: employed 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 Sexual orientation: Straight/Heterosexual Gender identity: Female Female Reproductive History Menstrual Age of Menarche: 11 Review of Systems Const Denies fatigue, Denies fever(s), Denies night sweats, Denies poor appetite and Denies weight loss ENT Reports Normal hearing present, Denies dental pain, Denies dysphagia, Denies hearing loss, Denies mouth pain, Denies odynophagia, Denies throat swelling, Denies tongue swelling and Reports other (Dentition adequate) Card Reports no additional complaints Resp Reports no additional complaints GI Details: Reports abdominal pain, Denies melena, Reports bloating, Denies hematochezia, Reports constipation, Denies GI cramping, Denies dysphagia, Denies excessive flatus, Reports early satiety, Reports heartburn, Denies diarrhea, Denies nausea, Denies odynophagia, Denies vomiting and Denies hematemesis Skin/Breast Denies pruritus, Denies lesions, Denies rash and Denies jaundice Neuro Reports Normal hearing present and Denies Abnormal speech present Endo Denies fatigue Aller/Immun Denies throat swelling and Denies tongue swelling Physical Exam Vital Signs: Last Vital Signs Pulse 69 04/28/25 14:46 BP 133/81 04/28/25 14:46 BMI result Body Mass Index 28.8 Const General: cooperative, no acute distress, well developed and well groomed Nutritional Appearance: well nourished and obese centrally obese Orientation/consciousness: oriented to person, oriented to place and oriented to time Limitations: No language barrier HEENT Head: Yes normocephalic and Yes atraumatic Eyes General: appearance normal, both eyes and all related structures Pupils: Equal, round and reactive pupils present Neck Neck: Yes normal visual inspection and Yes no lymphadenopathy Thyroid: Thyroid normal Resp Effort & Inspection: normal respiratory effort and able to speak in complete sentences Auscultation: clear to auscultation bilaterally Cardio Rate: regular rate Rhythm: regular rhythm Heart sounds: Normal, physiologic split S2 sound present Peripheral pulses: radial pulses present and posterior tibial pulses present GI Inspection: Yes distended, No Abdominal panniculus present and Yes obesity Palpation (GI): Soft to palpation, Tenderness to palpation present (GI) in the epigastrum, no guarding, not rigid and No hepatosplenomegaly present Percussion: Yes normal to percussion Auscultation: normal bowel sounds Rectal Exam - Female: deferred Skin General skin exam: no rashes or lesions noted, turgor normal, skin not dry, no jaundice, No spider nevi and no striae Rashes: no rashes Nails: normal Neuro General: oriented to person, oriented to place and oriented to time Cranial nerves: Yes Equal, round and reactive pupils present and Yes Normal hearing present Speech: No Abnormal speech present Extrem General: Yes normal to inspection, No clubbing, No cyanosis and No edema Psych Appearance: grossly normal and well kempt Mental Status: mental status grossly normal Speech and movement: Normal speech and movement present Affect: normal affect Attitude: cooperative Thought process: Normal thought process present and not confabulating Thought content: Normal thought content present Insight: Limited insight present (Psych) Judgement: Limited judgement present (Psych) Assessment & Plan Assessment & Plan (1) Epigastric pain: Code(s): R10.13 - Epigastric pain Category: Medical (2) Gastroparesis: Comment: moderate 2024 GES Code(s): K31.84 - Gastroparesis Category: Medical (3) Chronic idiopathic constipation: Code(s): K59.04 - Chronic idiopathic constipation Category: Medical (4) GERD (gastroesophageal reflux disease): Code(s): K21.9 - Gastro-esophageal reflux disease without esophagitis Category: Medical (5) Pre-op examination: Code(s): Z01.818 - Encounter for other preprocedural examination Category: Medical (6) Sessile colonic polyp: Comment: Sessile serrated adenoma on 01/2021 scope repeat in 5 years Code(s): K63.5 - Polyp of colon Category: Medical Plan Lebanese declines Her current regimen should consist of pantoprazole 40 mg twice a day, Reglan 5 mg 3 times a day, senna 2 tabs at bedtime, and Creon 2 caps twice a day. She has been feeling poorly since shortly after I last saw her. She called while I was on vacation and apparently at that time Has son tried prescribing her Zithromax to see if it would make any difference. It did not. She describes pain in the epigastric area that is tight, and she has severe bloating. She can not really say what makes it better or worse but she has been eating very lightly and drinking less out of fear of making the pain worse. At times the pain was sharp and stabbing. There has been no other new medications introduced or big diet changes and no signs of an infectious illness. I reviewed her old studies in the past there has been no sign of gallstones and her last EGD was in 2020 and was relatively unremarkable. She is due for another screening colonoscopy in 2025 so I think will order the EGD and colonoscopy now. We will get another ultrasound to see if there is any problem with the gallbladder. I think it is possible that the metoclopramide at 5 mg simply isn't doing enough and this is the source of the epigastric pain. We will try advancing her to 10 mg and give her 4 times a day dosing to see if this makes a difference in the pain. She has been taking her senna every day and she is moving her bowels quite well. Return office visit in 2-3 weeks Orders: Orders Comprehensive Met. Panel Today R10.13 - Epigastric pain Amylase Today R10.13 - Epigastric pain EGD/[place] Combo - GI Use Only Today R10.13 - Epigastric pain Complete Blood Count Auto Diff Today R10.13 - Epigastric pain US abdomen complete Today R10.13 - Epigastric pain Lipase Today R10.13 - Epigastric pain Medications: New metoclopramide HCl (Reglan) 10 mg PO QIDACHS 120 tabs 6RF K31.84 - Gastroparesis simethicone after meals 180 mg PO QID 120 caps 3RF 30 days pantoprazole (Protonix) 40 mg PO BID 60 tabs 6RF 30 days K21.9 - Gastro-esophageal reflux disease without esophagitis Discontinued famotidine Discontinued Reason: Patient no longer taking 40 mg PO BEDTIME 90 days 90 tabs 3RF K21.9 - Gastro-esophageal reflux disease without esophagitis metoclopramide HCl (Reglan) Discontinued Reason: Doctor's Order 5 mg PO .tidac 90 tabs 6RF K31.84 - Gastroparesis Coding Level of Care Code Est Pt Level 4 (44031) Diagnoses Epigastric pain R10.13 Gastroparesis K31.84 Chronic idiopathic constipation K59.04 GERD (gastroesophageal reflux disease) K21.9 Pre-op examination Z01.818 Sessile colonic polyp K63.5 Time Spent (min) 39
[2025-04-28 14:46] VITALS: BP 133/81; PULSE 69; BMI 28.8
--- OUTSIDE RECORDS SUMMARY | 2025-04-28 15:19 | XMS_ITS | Encounter Summary ---
Author Organization [facility] Address [address] [facility] [address] [place] [address] Care Team Providers Care Computer Trainer Name Role Phone Ariella Scales MD Primary Care Provide r Reason for Visit * Reason Comments Med Refill Encounter Details Date Type Department Care Team ([facility] Contact Info) Description 08/24/2023 Refill [facility] [address] [place], [place] [phone] [facility] [address] [place], [place] [phone] Constipation, unspecified constipation type Social History Tobacco [...] documented as of this encounter Care Teams Computer Trainer Relationship Specialty Start Date End Date Ariella Scales MD [address] [place] [id number] PCP - General Family Medicine 06/25/18 documented as of this encounter
--- OUTSIDE RECORDS SUMMARY | 2025-04-28 15:19 | XMS_ITS | Patient Health Record ---
Author Organization [facility] Address [address] [place] [address] Care Team Providers Care Foreign Diplomat Name Role Phone Otilia Ray MD Primary Care Provider Robert Wolf Jr [phone] Reason For Referral No Information Medications Medication SIG (Take, Route, Frequency, Duration) Notes Start Date End Date Status ProAir HFA 108 (90 Base) MCG/ACT 2 puffs as needed Inhalation every 6 hrs Active Flovent HFA 44 MCG/ACT 2 puffs Inhalatio n Twice a day Active Ranitidine HCl 150 MG 1 capsule at bedti me Orally Once a day Active BreatheRite - Active Omeprazole 20 MG 1 capsule Orally Onc e a day Active Claritin 10 MG 1 tablet Orally Once a day Active Social History Tobacco Use: Social History Observation Description Date Details (start date - stop date) Never Smoker NA - NA Tobacco Use/Smoking Question Answer Notes Patient is a nonsmoker Alcohol Screen Question Answer Notes Did you have a drink contain ing alcohol in the past year? Yes How often did you have a dri nk containing alcohol in the past year? 2 to 4 times a month (2 points) How many drinks did you have on a typical day when you were drinking in the past year? 1 or 2 drinks (0 point) How often did you have 6 or more drinks on one occasion in the past year? Never (0 point) Points 2 Interpretation Negative Problems Problem Type SNOMED Code ICD Code Onset Dates Problem Status W/U Status Risk Notes Problem [id number] Dysphagia, unspecified type (R13.10) Active confirmed Problem [id number] Irritable bowel syndrome with constipation (K58.1) Active confirmed Plan Of Treatment Pending Test Test Name Order Date XR GI SERIES 10/16/2017 Insurance Providers Payer Name Payer Address Payer Phone Subscriber Number Group Number Insured Name Patient Relationship to Insured Coverage Start Date Coverage End Date [facility] [address] [place] [phone] [id number] CORNELL JOHNSON Self - patient is the insured Medical (General) History Medical History History ICD Code GERD asthma Denies [place],DM,CVA,renal disease Surgical History Surgery Date(Month/Year) tubal ligation breast reduction hand surgery
== END 2025-04-28 15:33 | disposition home or self-care (01) ==
LOC: HO.HGI 14:44
PROVIDERS: PCP Internal Medicine; Visit Provider Nurse Practitioner
DX: R10.13 Epigastric pain (principal); K31.84 Gastroparesis; K59.04 Chronic idiopathic constipation; K21.9 Gastro-esophageal reflux disease without esophagitis; K63.5 Polyp of colon
CPT/HCPCS: 99214

== ENCOUNTER → 2025-04-28 14:43 | Outpatient (BNVA) | payer MEDICAID, SELFPAY | PROVIDERS: PCP Internal Medicine; Visit Provider Nurse Practitioner | DX: Z01.818 Encounter for other preprocedural examination (principal); R10.13 Epigastric pain; K31.84 Gastroparesis; K59.04 Chronic idiopathic constipation; K21.9 Gastro-esophageal reflux disease without esophagitis; K63.5 Polyp of colon | CPT/HCPCS: 99212 ==

== ENCOUNTER 2025-04-29 09:40 | Outpatient (REF) | payer MEDICAID, SELFPAY ==
[2025-04-29 09:58] LABS: MANUAL DIFF FLAG NO
--- OUTSIDE RECORDS SUMMARY | 2025-04-29 09:59 | XMS_ITS | Encounter Summary ---
Author Organization [facility] Address [address] [facility] [address] [place] [address] Care Team Providers Care Bartender Helper Name Role Phone Ariella Scales MD Primary Care Provide r Reason for Visit * Reason Comments Med Refill Encounter Details Date Type Department Care Team ([facility] Contact Info) Description 08/24/2023 Refill [facility] MED[facility] [address] [place], [place] [phone] [facility] [address] [place], [place] [phone] Constipation, unspecified constipation type Social History Tobacco [...] documented as of this encounter Care Teams Bartender Helper Relationship Specialty Start Date End Date Ariella Scales MD [address] [place] [id number] PCP - General Family Medicine 06/25/18 documented as of this encounter
--- OUTSIDE RECORDS SUMMARY | 2025-04-29 10:00 | XMS_ITS | Patient Health Record ---
Author Organization [facility] Address [address] [place] [address] Care Team Providers Care Propeller Inspector Name Role Phone Otilia Ray MD Primary Care Provider Robert Wolf Jr Reason For Referral No Information Medications Medication [...] Problem Status W/U Status Risk Notes Problem [id number] Dysphagia, unspecified type (R13.10) Active confirmed Problem [id number] Irritable bowel syndrome with constipation (K58.1) Active confirmed Plan Of Treatment Pending Test Test Name Order Date XR GI SERIES 10/16/2017 Insurance Providers Payer Name Payer Address Payer Phone Subscriber Number Group Number Insured Name Patient Relationship to Insured Coverage Start Date Coverage End Date [facility] [address] [place] [phone] [id number] CORNELL JOHNSON Self - patient is the insured Medical (General) History Medical History History ICD Code GERD asthma Denies [place],DM,CVA,renal disease Surgical History Surgery Date(Month/Year) tubal ligation breast reduction hand surgery
[2025-04-29 10:41] LABS: Hematocrit 37.8 % (37.0-47.0); Hemoglobin 12.1 g/dl (12.0-16.0); Imm Gran Abs Auto 0.03 X10*3/uL (0.00-0.03); Imm Gran Pct Auto 0.3 % (0.0-0.4); Lymphocytes Absolute Auto 1.9 X10*3/uL (1.2-4.9); Mean Corpuscular HGB Conc 32.0 g/dl (31.0-35.0); Mean Corpuscular Hemoglobin 26.2 pg (27.0-33.0); Mean Corpuscular Volume 82.0 fL (80.0-98.0); NRBC Abs Auto 0.000 X10*3/uL (0.0-0.012); NRBC Pct Auto 0.0 /100WBC (0.0-0.2); Platelet Count 333 X10*3/uL (160-400); Red Blood Count 4.61 X10*6/uL (4.20-5.50); White Blood Count 8.7 X10*3/uL (4.8-10.8)
[2025-04-29 11:29] LABS: Alanine Aminotransferase 28 U/L (0-31); Albumin Level 4.0 g/dL (3.5-5.0); Alkaline Phosphatase 92 U/L (39-117); Amylase 64 U/L (28-100); Anion Gap 9 (12-20); Aspartate Amino Transferase 24 U/L (5-31); Blood Urea Nitrogen 18 mg/dL (9-16); Calcium 9.1 mg/dL (8.4-10.2); Carbon Dioxide 26 mmol/L (22-29); Chloride 108 mmol/L (96-108); Estimated Glomerular Filt Rate > 60; Lipase 33 U/L (8-78); Potassium 3.9 mmol/L (3.3-5.1); Sodium 139 mmol/L (135-145); Total Protein 7.2 g/dL (6.5-8.0)
== END 2025-04-29 09:41 | disposition home or self-care (01) ==
LOC: HO.LAB 09:40
PROVIDERS: PCP Internal Medicine; Visit Provider Nurse Practitioner
DX: R10.13 Epigastric pain (principal)
CPT/HCPCS: 36415; 80053; 82150; 83690; 85025

== ENCOUNTER 2025-07-13 10:24 | Outpatient (AMB) | payer MEDICAID, SELFPAY ==
--- NOTE | 2025-07-13 10:26 | MHC.OFFVIS ---
Vital Signs 07/13/25 10:28 Weight 152 lb Intake Visit Reasons: Vaginal irritation Intake Note: urinary symptoms Certification Technician Required: No Accompanied by: Self / Same As Patient Allergies No Known Allergies Allergy (Mild, Verified 07/13/25 10:28) NOT APPLICABLE HPI Comments Details: Presenting complaining of vulvovaginal itching with no associated vaginal discharge or foul odor PFSH Medical History Epigastric pain Nausea Yeast infection of the vagina H. pylori infection RUQ abdominal pain Dysphagia Abdominal bloating Colon cancer screening Abdominal wall abscess Acute diarrhea Well woman exam with routine gynecological exam Abnormal uterine bleeding GERD (gastroesophageal reflux disease) History of abnormal cervical Pap smear Asthma Surgical History History of loop electrical excision procedure (LEEP) Hx of dilation and curettage History of colonoscopy History of esophagogastroduodenoscopy (EGD) History of tubal ligation History of bilateral breast reduction surgery Family History Father Throat cancer Paternal Grandmother Throat cancer Brother Stomach problems Mother Diabetes Maternal Grandmother Diabetes Other Stroke Social History Household Members: Spouse Alcohol intake: current Alcohol intake frequency: holidays/special occasions only Second Hand Smoke Exposure: No Current occupational status: employed 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 Sexual orientation: Straight/Heterosexual Gender identity: Female Female Reproductive History Menstrual Age of Menarche: 11 Date of last menstrual period: 05/12/25 Total pregnancies: 3 Full term: 2 Ab spontaneous: 1 History of abnormal pap smear: Yes History of abnormal mammogram: Yes Review of Systems Const All systems reviewed & are unremarkable except as noted in HPI and below Physical Exam General: Yes no CVA tenderness External Female Exam: normal external appearance and normal appearance of the urethra Speculum Exam - Vagina: normal appearance of the vagina, normal palpation, no lesions and no masses Speculum Exam - Cervix: normal appearance of the cervix, normal palpation, no lesions, no masses and nontender Bimanual exam- vagina & uterus: normal bimanual exam, normal palpation, uterine size normal, normal palpation, uterine shape normal, No Cervical tenderness present and non-tender Bimanual Exam- Adnexa, other: normal adnexae Back/Spine/Pelvis Back: no CVA tenderness Assessment & Plan Assessment & Plan (1) Vulvovaginitis: Code(s): N76.0 - Acute vaginitis Category: Medical Plan: GC/CT, Bacterial Vaginosis panel taken, Terazol 0.8% q.h.s. for 3 days was sent to the patient's pharmacy. The patient was instructed to call if symptoms don't improve in 48 hours. Medications: New terconazole 0.8% 1 appful vaginal BEDTIME 20 grams 0RF 3 days Coding Level of Care Code Est Pt Level 3 (86486) Diagnoses Vulvovaginitis N76.0
--- OUTSIDE RECORDS SUMMARY | 2025-07-13 11:33 | XMS_ITS | Encounter Summary ---
Author Organization [employer] Address [address] [place] [address] Care Team Providers Care Grease Monkey Name Role Phone Ariella Scales MD Primary Care Provide r Reason for Visit * Reason Comments Med Refill Encounter Details Date Type Department Care Team ([facility] st Contact Info) Description 12/13/2024 Refill [facility] [address] [place], [place] [phone] Ariella Scales MD [address] [place] [address] Primary hypertension Social History Tobacco Use Types Packs/Day Years Used Date Smoking Tobacco: Never Passive Smoke Exposure: Never Smokeless Tobacco: Never Alcohol Use Standard Drinks/Week Comments Yes 0 (1 standard drink = 0.6 oz pur e alcohol) oca Depression Answer Date Recorded Patient Health Questionnaire-9 Score 0 04/15/2024 Patient Health Questionnaire-9 Score 0 04/15/2024 Last PHQ-9: Questionnaire Data Not on file 0 04/15/2024 Housing Stability Answer Date Recorded What is your housing situation today? I have pako sing 04/15/[address] you li ve. Do you have problems with any of the following? None of the above 04/15/2024 Food Insecurity Answer Date Recorded Within the past 12 months, y ou worried that your food would run out before you got money to buy more: Never True 04/15/2024 Within the past 12 months,th e food you bought just didn't last and you didn't have enough money to get more: Never True 12/2023 Transportation Answer Date Recorded In the past 12 months, has l ack of transportation kept you from medical appts, meetings, work or from getting things needed for daily living? No 04/15/2024 Utilities Answer Date Recorded In the past 12 months, has t he electric, gas, oil or water company threatened to shut off services in your home? No 04/15/2024 Depression Answer Date Recorded Patient Health Questionnaire-2 Score 0 04/15/2024 Internet Access Answer Date Recorded Internet Access Q1 No 06/12/2024 Internet Access Q2 Not on file 06/12/2024 Comments Unknown Sex and Gender Information Value Date Recorded Sex Assigned at Female 08/13/2022 10:16 AM EDT Legal Sex Female 10:16 AM EDT Gender Identity Female 08/13/2022 10:16 AM EDT Sexual Orientation Straight 08/13/2022 10 :16 AM EDT documented as of this encounter Plan of Treatment Upcoming Encounters Date Type Department Care Team (Late st Contact Info) Description 08/16/2025 2:45 PM EST Office Visit [facility] [address] [place] [address] Ariella Scales MD [address] [place] [address] documented as of this encounter Visit Diagnoses Diagnosis Primary hypertension Unspecified essential hypertension documented in this encounter Additional Health Concerns Assessment Noted Time PHQ-9 Depression Total Score: 0 04/15/20 24 3:20 PM EDT documented as of this encounter Care Teams Grease Monkey Relationship Specialty Start Date End Date Ariella Scales MD [address] [place] [phone] PCP - General Family Medicine 06/25/18 documented as of this encounter
--- OUTSIDE RECORDS SUMMARY | 2025-07-13 11:33 | XMS_ITS | Encounter Summary ---
Author Organization [employer] Address [address] [place] [address] Care Team Providers Care Prn Physical Therapist Name Role Phone Ariella Scales MD Primary Care Provide r Reason for Visit * Reason Comments Med Refill Encounter Details Date Type Department Care Team ([facility] Contact Info) Description 06/28/2025 Refill [facility] [address] [place], [place] [phone] Ariella Scales MD [address] [place], [place] [phone] Subacute maxillary sinusitis Social History Tobacco Use Types Packs/Day Years [...] is your housing situation today? I have [employer] 04/15/[address] you li [...] Description 08/16/2025 2:45 PM EST Office Visit [facility] [address] [place] [address] Ariella Scales MD [address] [place] [address] documented as of this encounter Visit Diagnoses Diagnosis Subacute maxillary sinusitis documented in this encounter Additional Health Concerns Assessment Noted Time PHQ-9 Depression Total Score: 0 04/15/20 24 3:20 PM EDT documented as of this encounter Care Teams Prn Physical Therapist Relationship Specialty Start Date End Date Ariella Scales MD [address] [place] [phone] PCP - General Family Medicine 06/25/18 documented as of this encounter
--- OUTSIDE RECORDS SUMMARY | 2025-07-13 11:33 | XMS_ITS | Encounter Summary ---
Author Organization [employer] Address [address] [facility] [address] [place] [address] Care Team Providers Care Specimen Processor Name Role Phone Ariella Scales MD Primary Care Provide r Reason for Visit * Reason Comments Med Refill Encounter Details Date Type Department Care Team ([facility] Contact Info) Description 08/24/[address] [facility] [address] [place], [place] [phone] Ariella Scales MD [address] [place], [place] [phone] Social History Tobacco Use Types Packs/Day Years [...] Description 08/16/2025 2:45 PM EST Office Visit [facility] [address] [place] [phone] Ariella Scales MD [address] [place] [phone] documented as of this encounter Visit Diagnoses Not on filedocumented in this encounter Additional Health Concerns Assessment Noted Time PHQ-9 Depression Total Score: 4 02/07/20 23 8:57 AM EDT documented as of this encounter Care Teams Specimen Processor Relationship Specialty Start Date End Date Ariella Scales MD [address] [place] [phone] PCP - General Family Medicine 06/25/18 documented as of this encounter
--- OUTSIDE RECORDS SUMMARY | 2025-07-13 11:33 | XMS_ITS | Clinical Summary ---
Author Organization [employer] Address [address] [facility] [address] [place] [address] Care Team Providers Care Consulting Property Manager Name Role Phone Ariella Scales MD Primary Care Provide r Allergies Active Allergy Reactions Criticality Noted Date Comments Tangier Oil 01/28/2025 Medications Allergy Relief 180 MG tablet TAKE 1 TABLET BY MOUTH EVERY DAY 90 tablet 08/26/20 23 Active FT Earwax Removal 6.5 % otic solutionIndicat ions:Impacted cerumen, right ear PLACE 5 DROPS IN THE RIGHT EAR TWICE DAILY FOR FOUR DAYS 15 mL 12/11/19 24 Active cetirizine (ZyrTEC) 10 MG tabletIndicatio ns:Seasonal allergies Take 1 tablet (10 mg) by mouth in the morning. 90 tablet 04/15/20 24 Active Mometasone Furoate (Asmanex HFA) 200 MCG/ACT aerosol INHALE 1 PUFF BY MOUTH EVERY MORNING AND EVERY NIGHT AT BEDTIME. RINSE MOUTH WITH WATER AFTER USE. DO NOT SWALLOW. USE SPACER 13 g 06/04/20 24 Active baclofen (Lioresal) 10 MG tabletIndicatio ns:Strain of calf muscle, left, initial encounter Take 1 tablet (10 mg) by mouth if needed in the morning, at noon, and at bedtime for muscle spasms. 90 tablet 06/12/20 24 Active ibuprofen 600 MG tabletIndicatio ns:Strain of calf muscle, left, initial encounter Take 1 tablet (600 mg) by mouth if needed in the morning, at noon, in the evening, and at bedtime for mild pain. 90 tablet 06/12/20 24 Active albuterol (2.5 MG/3ML) 0.083% nebulizer solution USE 3 ML VIA NEBULIZER THREE TIMES DAILY NEEDED 90 mL 06/25/20 24 Active senna (Senokot) 8.6 MG tabletIndicatio ns:Constipation , unspecified constipation type TAKE 1 TABLET BY MOUTH EVERY DAY NEEDED FOR CONSTIPATION 90 tablet 1 08/12/20 24 Active famotidine (Pepcid) 40 MG tablet Take 40 mg by mouth at bedtime. 04/28/20 24 Active amLODIPine (Norvasc) 10 MG tabletIndicatio ns:Primary hypertension TAKE 1 TABLET BY MOUTH EVERY DAY 90 tablet 12/01/19 25 Active famotidine (Pepcid) 40 MG/5ML suspension Take 2.1 mL (16.8 mg) by mouth 2 times daily for 3 days. Resume once a day after bid for three days compleated 6 mL 2 01/29/20 25 Active sucralfate (Carafate) 1 GM/10ML suspension GIVE 10 ML BY MOUTH FOUR TIMES DAILY 473 mL 1 02/12/20 25 Active cholecalciferol (Vitamin D-3) 25 MCG (1000 UT) capsule TAKE 1 CAPSULE BY MOUTH EVERY DAY 90 capsule 04/14/20 25 Active hydrOXYzine pamoate (Vistaril) 25 MG capsuleIndicati ons:Anxiety TAKE 1 CAPSULE BY MOUTH EVERY 8 HOURS NEEDED FOR ITCHING 30 capsule 1 05/17/20 25 Active albuterol (Ventolin HFA) 108 (90 Base) MCG/ACT inhalerIndicati ons:Uncomplicat ed asthma, unspecified asthma severity, unspecified whether persistent INHALE 2 PUFFS BY MOUTH EVERY 4 TO 6 HOURS NEEDED FOR ASTHMA OR FOR COUGH 18 g 1 05/24/20 25 Active sertraline (Zoloft) 50 MG tabletIndicatio ns:Anxiety TAKE 1 TABLET BY MOUTH ONCE DAILY 30 tablet 2 06/04/20 25 Active fluticasone (Flonase) 50 MCG/ACT nasal sprayIndication s:Subacute maxillary sinusitis SHAKE LIQUID AND USE 2 SPRAYS IN EACH NOSTRIL EVERY DAY NEEDED FOR NASAL CONGESTION 48 g 06/22/20 25 Active fluticasone (Flonase) 50 MCG/ACT nasal sprayIndication s:Subacute maxillary sinusitis SHAKE LIQUID AND USE 2 SPRAYS IN EACH NOSTRIL EVERY DAY NEEDED FOR NASAL CONGESTION 48 g 03/10/20 24 2024 Discontinued Active Problems Problem Noted Date Diagnosed Date Epigastric pain 01/28/2025 Assessment & Plan (01/28/2025 9:40 AM EDT): Reports abd pain, nausea, vomiting, diarrhea and now constipation after eating almonds and kaushal seeds. -increased Famotidine BID for 3 days. -no evidence of dehydration on exam. -no evidence of acute abdomen. -supportive care with fluids. Followed by [facility], has appt in 1 month, end of February 2025. H. Pylori negative November 2023. EGD with Dr. Rachel showed gastritis with empiric balloon dilatation, next colonoscopy due 2025. Primary hypertension 05/14/2024 Assessment & Plan (05/14/2024 9:38 AM EDT): I advise low Na diet, weight reduction I advise to take her medication every day I ask her to log her BP for next appointment Anxiety 04/15/2024 Assessment & Plan (05/14/2024 9:38 AM EDT): Counseling done I increase sertraline to 50mg daily I added hydroxyzine 25mg Q 8hrs PRN RTC 4 weeks Assessment & Plan (04/17/2024 3:00 PM EDT): We talked about non-medication interventions for anxiety including exercise, meditation, counseling, mindfulness practices I will start her on sertraline 25mg daily RTC 4 weeks Overweight (BMI 25.0-29.9) 10/24/2023 Dysphonia 10/24/2023 Impacted cerumen of right ear 10/24/2023 Assessment & Plan (10/24/2023 2:09 PM EST): Debrox for 4 days then come back for nurse visit for ear lavage Skin mole 02/06/2023 Assessment & Plan (02/06/2023 9:25 AM EDT): Most likely is related to chronic sun exposure and perimenopausal changes Recommend the use of sunblock she wants to be referred to dermatology Elevated blood pressure read ing without diagnosis of hypertension 02/06/2023 Assessment & Plan (10/24/2023 2:09 PM EST): I advise low Na diet Weight reduction and cardiovascular exercise Patient will monitor her blood pressure at home and she will report back to us Assessment & Plan (02/06/2023 9:25 AM EDT): seems to be essential hypertension continue checking BP at home and fu PCP in 3-4 weeks with labs Counseled re low salt diet/increase moderate physical activity. Check home BP BIW and prn CP/HONEYCUTT/KRUEGER Non smoking patient. Handout information is given to patient. Constipation 02/01/2023 Excessive cerumen in ear canal 02/01/2023 Depressive disorder 02/01/2023 Weight gain 02/01/2023 Vitamin D deficiency 02/01/2023 Visual impairment 02/01/2023 Onychomycosis 02/01/2023 Moderate persistent asthma with acute exacerbati on 02/01/2023 Moderate asthma 02/01/2023 Assessment & Plan (04/17/2024 2:59 PM EDT): Patient educated to avoid asthma triggers C/w same medication regimen Seasonal allergies 03/27/2018 Chronic constipation 06/25/2017 Gastroesophageal reflux disease without esophagi tis 06/25/2017 Seasonal allergic rhinitis 06/25/2017 Mild persistent asthma 06/25/2017 Encounters Date Type Department Care Team Description 07/13/2025 Refill [facility] [address] [place] [phone] Ariella Scales MD 06/28/2025 Refill [facility] [address] [place] [address] Ariella Scales MD Subacute maxillary sinusitis 06/21/2025 Refill [facility] [address] [place] [address] Ariella Scales MD Subacute maxillary sinusitis 06/04/2025 Refill [facility] [address] [address] Ariella Scales MD Anxiety 05/22/[address] [facility] [address] [place] [address] Ariella Scales MD Uncomplicated asthma, unspecified asthma severity, unspecified whether persistent 05/15/[address] [facility] [address] [place] [address] Marisabel Fuentes MD Anxiety 04/29/2025 Orders Only GENERIC EXTERNAL DATA DEPARTMENT Provider, Generic External Data 04/13/[address] [facility] [address] [place] [address] Ariella Scales MD from Last 3 Months Immunizations Immunization Administration Dates Next Due Hep B, adult 11/20/2011,09/27/2011 Influenza Injectable Quadriv alant Preservative Free IIV4 MDCK 10/25/2017 Influenza injectable quadriv alent IIV4 with preservative 05/17/2021,10/22/2019,08/14/2018 Influenza injectable quadriv alent preservative free 10/24/2023,08/01/2022 Influenza, IIV3, injectable 09/08/2014, 1 Influenza, Split (incl. miley fied surface antigen) 11/28/2012 Influenza, seasonal, injecta ble, preservative free 07/14/2015 Pneumococcal Conjugate PCV 20 04/15/2024 Pneumococcal Polysaccharide PPSV23 10/03/2005 TD (adult), 2 Lf tetanus tox oid, preservative free, adsorbed 10/14/2006 Td (adult), 5 Lf tetanus tox oid, preservative free, adsorbed 09/28/2013 Tdap 11/28/2012 Social History Tobacco Use Types Packs/Day Years Used Date Smoking Tobacco: Never Passive Smoke Exposure: Never Smokeless Tobacco: Never Tobacco Cessation:Counseling Given: Not Answered Alcohol Use Standard Drinks/Week Comments Yes 0 (1 standard drink = 0.6 oz pur e alcohol) oca Depression Answer Date Recorded Patient Health Questionnaire-9 Score 0 04/15/2024 Patient Health Questionnaire-9 Score 0 04/15/2024 Last PHQ-9: Questionnaire Data Not on file 0 04/15/2024 Housing Stability Answer Date Recorded What is your housing situation today? I have [place] 04/15/[address] you [...] Orientation Straight 08/13/2022 10 :16 AM EDT Last Filed Vital Signs Vital Sign Reading Time Taken Comments Blood Pressure 130/82 01/28/2025 9:09 AM EDT Pulse 72 01/28/2025 9:09 AM EDT Temperature 36.7 C (98 F) 01/28/2025 9:09 AM EDT Respiratory Rate 16 01/28/2025 9:09 AM EDT Oxygen Saturation 100% 01/28/2025 9:09 AM EDT Inhaled Oxygen Concentration - - Weight 66.2 kg (146 lb) 01/28/2025 9:09 AM EDT Height 152.4 cm (5') 06/12/2024 11:19 AM EDT Body Mass Index 28.51 06/12/2024 11:19 AM EDT Plan of Treatment Upcoming Encounters Date Type Department Care Team (Late st Contact Info) Description 08/16/2025 2:45 PM EST Office Visit [facility] [address] [place] [address] Ariella Scales MD [address] [place] [address] Health Maintenance Due Date Last Done Comments CT Colonography 1975 Dental Prophylaxis 1975 FIT DNA/Cologuard 1975 FIT 1975 FOBT 1975 Sigmoidoscopy 1975 Disability Screening 1975 Alcohol/Substance Use Screening 1986 Family Planning (PISQ) 1989 Hepatitis B Vaccines (3 of 3 - 19+ 3-dose series) 03/28/2012 11/20/2011, 09/27/2011 Dental Oral Exam 06/27/2019 12/24/2018, 12/24/2018 Dental X-Ray: Bitewings 12/26/2019 12/24/2018, 12/24 Dental X-Ray: Full Mouth 12/25/2021 12/24/2018, 12/12 DTaP/Tdap/Td Vaccines (3 - Td or Tdap) 09/28/2023 09/28/2013, 11/28/2012, 10/14/2006 Zoster Vaccines (2 of 2) 09/23/2024 07/29/2024 Depression Screening 04/15/2025 04/15/2024, 04/15/20 24 SDOH Screening 04/15/2025 04/15/2024 Influenza Vaccine (#1) 2025 , 10/24/2023, 08/01/2022, Additional history exists Tobacco Screening 09/17/2025 09/17/2024 Mammogram 11/17/2025 11/17/2024, 10/16, 10/31/2022, Additional history exists Colonoscopy 01/16/2026 01/16/2021 Colorectal Cancer Screening 01/16/2026 Cervical Cancer Screening 04/03/2028 HPV/Cotest 04/03/2028 08/11/2021 Pap Smear 04/03/2028 04/03/2023, 08/11/2021 Lipid Panel 10/18/2028 10/18/2023, 04/0 03/2022, 04/20/2021 RSV Patients and Patients Aged 60 years or older (1 - 1-dose 75+ series) 2049 HIV Screening Completed 01/17/2022 Hepatitis C Screening Completed 01/17/2022 Pneumococcal Vaccine: 50+ Years Completed 04/15/2024, 10/03/2005 COVID-19 Vaccine Completed 07/29/2024, 05/2023, 08/28/2021, Additional history exists HIB Vaccines Aged Out No longer eligi ble based on patient's age to complete this topic HPV Vaccines Aged Out No longer eligi ble based on patient's age to complete this topic Hepatitis A Vaccines Aged Out No long er eligible based on patient's age to complete this topic IPV Vaccines Aged Out No longer eligi ble based on patient's age to complete this topic Meningococcal B Vaccine Aged Out No l onger eligible based on patient's age to complete this topic Meningococcal Vaccine Aged Out No rekha abel eligible based on patient's age to complete this topic RSV under 20 months Aged Out No longe r eligible based on patient's age to complete this topic Rotavirus Vaccines Aged Out No longer eligible based on patient's age to complete this topic Procedures Procedure Name Priority Date/Time Associated Diagnosis Comments LIPASE Routine 04/29/2025 9:56 AM EDT AMYLASE Routine 04/29/2025 9:56 AM EDT COMPREHENSIVE METABOLIC PANEL Routine 04/29/2025 9:56 AM EDT CBC WITH AUTO DIFFERENTIAL Routine 04/29/2025 9:56 AM EDT BI MAMMOGRAM SCREENING TOMOSYNTHESIS BILATERAL Routine 11/17/2024 2:40 PM EST LIPID PANEL, STANDARD Routine 10/18/2023 8:55 AM EST Elevated blood pressure reading without diagnosis of hypertension PAP SMEAR Routine 04/03/2023 1:39 PM EDT ZZZ HISTORICAL HEPATITIS C AB W/REFL TO HCV RNA, QN, PCR Routine 01/17/2022 8:48 AM EDT HIV 1/2 ANTIGEN/ANTIBODY, FOURTH GENERATION W/RFL Routine 01/17/2022 8:48 AM EDT THINPREP IMAGING PAP AND HPV MRNA E6/E7, WITH CT/NG, TRICHOMONAS Routine 08/11/2021 12:00 AM EDT HM COLONOSCOPY Routine 01/16/2021 5:21 PM EDT INTRAORAL - COMPLETE SERIES OF RADIOGRAPHIC IMAGES Routine 12/24/2018 12:00 AM EDT COMPREHENSIVE ORAL EVALUATION - NEW OR ESTABLISHED PATIENT Routine 12/24/2018 12:00 AM EDT from Last 3 Months or Most Recently Relevant to Health Maintenance Results * (ABNORMAL) CBC auto differential (04/29/2025 9:56 AM EDT) White Blood Count 8.7 4.8 - 10.8 X10*3/uL [facility] Red Blood Count 4.61 4.20 - 5.50 X10*6/uL [facility] Hemoglobin 12.1 12.0 - 16.0 g/dl [facility] Hematocrit 37.8 37.0 - 47.0 % [facility] Mean Corpuscular Volume 82.0 80.0 - 98.0 fL [facility] Mean Corpuscular Hemoglobin 26.2(L) 27.0 - 33.0 pg [facility] Mean Corpuscular HGB Conc 32.0 31.0 - 35.0 g/dl [facility] Red Cell Distribution Width 15.7 11.0 - 16.0 % [facility] Platelet Count 333 160 - 400 X10*3/uL [facility] Mean Platelet Volume 9.3(L) 9.4 - 12.3 fL [facility] Neutrophils Percent Auto 59.3 45 - 73 % [facility] Imm Gran Pct Auto 0.3 0.0 - 0.4 % [facility] Lymphocytes Percent Auto 21.9 20 - 40 % [facility] Monocytes Percent Auto 7.2 2 - 11 % [facility] Eosinophils Percent Auto 10.8(H) 0 - 4 % [facility] Basophils Percent Auto 0.5 0 - 2 % [facility] NRBC Pct Auto 0.0 0.0 - 0.2 /100WBC [facility] Neutrophils Absolute Auto 5.2 2.0 - 8.3 x10*3/uL [facility] Imm Gran Abs Auto 0.03 0.00 - 0.03 X10*3/uL [facility] Lymphocytes Absolute Auto 1.9 1.2 - 4.9 X10*3/uL [facility] Monocytes Absolute Auto 0.6 0.1 - 1.2 X10*3/uL [facility] Eosinophils Absolute Auto 0.9(H) 0.0 - 0.4 X10*3/uL [facility] Basophils Absolute Auto 0.0 0.0 - 0.2 X10*3/uL [facility] NRBC Abs Auto 0.000 0.0 - 0.012 X10*3/uL [facility] 04/29/2025 9:56 AM EDT 04/29/2025 9:56 AM EDT Generic External Data Provider LAB BLOOD ORDERAB LES Final Result Performing Organization Address [facility]/ZIP Co de Phone Number [facility] [address] [place] [address] [phone] * Lipase (04/29/2025 9:56 AM EDT) Lipase 33 8 - 78 U/L [facility] 04/29/2025 9:56 AM EDT 04/29/2025 9:56 AM EDT us Generic External Data Provider LAB BLOOD ORDERAB LES Final Result Performing Organization Address [facility]/ZIP Co de Phone Number [facility] [address] [place] [address] [phone] * Amylase (04/29/2025 9:56 AM EDT) Amylase 64 28 - 100 U/L [facility] 04/29/2025 9:56 AM EDT 04/29/2025 9:56 AM EDT us Generic External Data Provider LAB BLOOD ORDERAB LES Final Result [facility] [address] [place] [address] [phone] * (ABNORMAL) Comprehensive Metabolic Panel (04/29/2025 9:56 AM EDT) Sodium 139 135 - 145 mmol/L [facility] Potassium 3.9 3.3 - 5.1 mmol/L [facility] Chloride 108 96 - 108 mmol/L [facility] Carbon Dioxide 26 22 - 29 mmol/L [facility] Anion Gap 9(L) 12 - 20 [facility] Urea Nitrogen (BUN) 18(H) 9 - 16 mg/dL [facility] Creatinine, Serum 0.62 0.5 - 1.4 mg/dL [facility] Estimated Glomerular Filt Rate >60 [facility] Comment:Chronic Kidney Disea se: Estimated GFR < 60 mL/min/1.86k8Lmiigf Kidney Disease: Estimated GFR < 15 mL/min/1.73m2 Glucose 79 60 - 115 mg/dL [facility] Calcium 9.1 8.4 - 10.2 mg/dL [facility] Bilirubin, Total 0.3 0.0 - 1.0 mg/dL [facility] Aspartate Amino Transferase 24 5 - 31 U/L [facility] Alanine Aminotransferase 28 0 - 31 U/L [facility] Total Protein 7.2 6.5 - 8.0 g/dL [facility] Albumin Level 4.0 3.5 - 5.0 g/dL [facility] Alkaline Phosphatase 92 39 - 117 U/L [facility] 04/29/2025 9:56 AM EDT 04/29/2025 9:56 AM EDT us Generic External Data Provider LAB BLOOD ORDERAB LES Final Result [facility] [address] [place] [address] [phone] * BI Mammogram Screening Tomosynthesis Bilateral (11/17/2024 2:40 PM EST) Anatomical Region Laterality Modality Breast Bilateral Mammography 11/17/2024 2:40 PM EST Narrative 11/23/2024 5:38 PM EST [address] [place] [address] Mammography Report Signed Patient: Bev Tomlin MR#: [id number] : 1975 Acct:[id number] Age/Sex: 49 / F ADM Date: 11/17/24 Loc: [facility] Attending Dr: Ariella Ortiz MD Ordering Physician: Ariella Scales MD Results: 2Benign Findings Date of Service: 11/17/24 Follow Up: 1 Year From Orig [facility] Mammogram Procedure(s): MM tomosynthesis screening BI Accession Number(s): [id number] cc: Ariella Scales MD EXAMINATION: MM SCREENING DIGITAL BREAST TOMOSYNTHESIS, BILATERAL CLINICAL INFORMATION: Screening. Asymptomatic. COMPARISON: Mammography: Comparison is made with available priors TECHNIQUE: Digital breast mammography with tomosynthesis is performed in both the craniocaudal and mediolateral oblique views along with computer-aided detection (CAD). FINDINGS: There are scattered areas of fibroglandular density (ACR BI-RADS breast composition Category b). Bilateral reduction mammoplasty. There are no significant masses, abnormal calcifications, or other abnormalities. MM/MM tomosynthesis screening BI IMPRESSION: No mammographic evidence of malignancy. ASSESSMENT: BI-RADS BI-RADS 2 - Benign Findings RECOMMENDATION: Routine annual mammography screening. 1 year F/U This examination should not preclude the clinical evaluation of a suspicious palpable abnormality. This patient's information was entered into a reminder system with a target due date for their next mammogram. Electronically signed by: Corazon Pickett DO 11/23/2024 05:34 PM EST RP Dictated By: Corazon Pickett DO Signed By: <Electronically signed by Corazon Pickett DO in OV> 11/23/24 1734 DD/ 1440 TD/TT: 11/17/24 1450 Filer Finish: Procedure Note Donotuseinterpreter, Image - [facility] [address] [place] [address] Mammography Report Signed Patient: Florence Tomlin#: [id number] : 1975Acct:[id number] Age/Sex: 49 / FADM Date: 11/17/24 Loc: HO.MAMMO Attending Dr: Ariella Ortiz MD Ordering Physician: Ariella Scales MDResults: 2Benign Findings Date of Service: 11/17/24Follow Up: 1 Year From Orig inal Mammogram Procedure(s): MM tomosynthesis screening BI Accession Number(s): [id number] cc: Ariella Scales MD EXAMINATION: MM SCREENING DIGITAL BREAST TOMOSYNTHESIS, BILATERAL CLINICAL INFORMATION: Screening. Asymptomatic. COMPARISON: Mammography: Comparison is made with available priors TECHNIQUE: Digital breast mammography with tomosynthesis is performed in both the craniocaudal and mediolateral oblique views along with computer-aided detection (CAD). FINDINGS: There are scattered areas of fibroglandular density (ACR BI-RADS breast composition Category b). Bilateral reduction mammoplasty. There are no significant masses, abnormal calcifications, or other abnormalities. MM/MM tomosynthesis screening BI IMPRESSION: No mammographic evidence of malignancy. ASSESSMENT: BI-RADS BI-RADS 2 - Benign Findings RECOMMENDATION: Routine annual mammography screening. 1 year F/U This examination should not preclude the clinical evaluation of a suspicious palpable abnormality. This patient's information was entered into a reminder system with a target due date for their next mammogram. Electronically signed by: Corazon Pickett DO 11/23/2024 05:34 PM EST RP Dictated By: Corazon Pickett DO Signed By: <Electronically signed by Corazon Pickett DO in OV> 11/23/24 1734 DD/ 1440 TD/TT: 11/17/24 1450 Filer Finish: us Ariella Ortiz MD IMG BI PROCEDURES Fin al Result * (ABNORMAL) Lipid Panel, Standard (10/18/2023 8:55 AM EST) Triglycerides 89 <150 mg/dL [facility] Comment:Desirable Triglyceri de: less than 150 mg/dLBorderline High Triglyceride 150-199 mg/dLHigh Triglyceride: 200-499 mg/dLVery High Triglyceride: greater than or equal to 5OO mg/dL Cholesterol 273(H) <200 mg/dL [facility] Comment:Desirable Cholestero l: less than 200 mg/dLBorderline High Cholesterol: 200-239 mg/dLHigh Cholesterol: greater than 239 mg/dL LDL Cholesterol Calculated 196(H) <100 mg/dL [facility] Comment:Desirable LDL: less than 100 mg/dLNear Optimal/Above Optimal LDL: 110- 129 mg/dLBorderline High LDL: 130-159 mg/dLHigh LDL: 160-189 mg/dLVery High LDL: greater than or equal to 190 mg/dL HDL Cholesterol 60 >40 mg/dL [facility] Comment:Desirable HDL: great er than 40 mg/dL Note: This HDL assay may give artificially low results in patients with liver disease. Blood Venous blood specimen / Unknown 10/18/2023 8:55 AM EST 10/18/2023 11:10 AM EST us Ariella Ortiz MD LAB BLOOD ORDERABLES Final Result [facility] [address] [place] [phone] * Pap Smear (04/03/2023 1:39 PM EDT) 04/03/2023 1:39 PM EDT 04/04/2023 8:20 AM EDT [facility] - 04/24/2023 1:42 PM EDT ----- ------- Name: Bev Tomlin Age/Sex: 47/F : 1975 Unit#: [id number] Attend Dr: Virgie Ceja CNM Re04/03/23 Status: DEP REF Location: [facility] Disch: ----- ------- SPEC : [id number] RECD: 04/04/23 STATUS: REJI STEVENSON NUM: [id number] WAQAS: 04/03/23-1339 [facility] DR: Virgie Ceja CNM ENTERED: 04/04/23 SP TYPE: Pap Smr OTHR DR: Ariella Scales MD ORDERED: Pap Smear Interpretation Satisfactory for evaluation. Coccobacilli consistent with shift in vaginal hair. Negative for intraepithelial lesion or malignancy. HPV mRNA E6/E7: NOT DETECTED This assay detects E6/E7 viral messenger RNA (mRNA) from 14 high-risk HPV types (16, 18, 31, 33, 35, 39, 45, 51, 52, 56, 58, 59, 66, 68) HPV testing performed by [facility], [place], [place]. See reference laboratory pion of the EMR for entire report. Clinical Information LMP: 01/26/23 Previous PAP test: 08/10/16, WNL Material Received ThinPrep-Cervical Copies To: Ariella Scales MD [address] [place] [address] Virgie Ceja [address] [place] [address] ----- ------- Signed (signature on file) [facility] 04/24/23 1342 ----- ------- END OF REPORT [facility] External Provider LAB CYT OLOGY ORDERABLES Final Result [facility] [address] [place] [address] [phone] * HEPATITIS C AB W/REFL TO HCV RNA, QN, PCR (01/17/2022 8:48 AM EDT) HEPATITIS C ANTIBODY NON-REACT [facility] NON-REACT [facility] INDEX 0.01 <1.00 [facility] Comment: HCV antibody was non-reactive. There is no laboratory evidence of HCV infection. In most cases, no further action is required. However, if recent HCV exposure is suspected, a test for HCV RNA (test code 06135) is suggested. For additional information please refer to http://education.[employer]/faq/ULN33a3 (This link is being provided for informational/ educational purposes only.) 01/17/2022 8:48 AM EDT Ariella Ortiz MD HISTORICAL/NON ORDERA BLE LABS Final Result Performing Organization Address [facility] de Phone Number [facility] [address] [place] [address], * HIV 1/2 ANTIGEN/ANTIBODY,FOURTH GENERATION W/RFL (01/17/2022 8:48 AM EDT) HIV-1/2 ANTIGEN AND ANTIBODIES, 4TH GENERATION W/ REFLEX NON-REACT YASMEEN NON-REACT YASMEEN [facility] Comment: HIV-1 antigen and HIV-1/HIV-2 antibodies were not detected. There is no laboratory evidence of HIV infection. PLEASE NOTE: This information has been disclosed to you from records whose confidentiality may be protected by state law. If your state requires such protection, then the state law prohibits you from making any further disclosure of the information without the specific written consent of the person to whom it pertains, or as otherwise permitted by law. A general authorization for the release of medical or other information is NOT sufficient for this purpose. For additional information please refer to http://education.[employer]/faq/QIV220 (This link is being provided for informational/ educational purposes only.) The performance of this assay has not been clinically validated in patients less than 2 years old. 01/17/2022 8:48 AM EDT Ariella Ortiz MD LAB BLOOD ORDERABLES Final Result Performing Organization Address [facility] de Phone Number [facility] [address] [place] [address], * THINPREP TIS PAP AND HPV mRNA E6/E7, CT/NG, TRICH (08/11/2021 12:00 AM EDT) Chlamydia trachomatis RNA, TMA, Urogenital NOT DETECTED NOT DETECTED [facility] Clinical Information: None given [facility] COMMENT SEE COMMENT [facility] Comment: The analytical performance characteristics of this assay, when used to test SurePath(TM) specimens have been determined by [facility]. The modifications have not been cleared or approved by the FDA. This assay has been validated pursuant to the CLIA regulations and is used for clinical purposes. For additional information, please refer to https://education.[employer]/faq/LYU046 (This link is being provided for information/ educational purposes only.) COMMENT SEE COMMENT [facility] Comment: EXPLANATORY NOTE: The Pap is a screening test for cervical cancer. It is not a diagnostic test and is subject to false negative and false positive results. It is most reliable when a satisfactory sample, regularly obtained, is submitted with relevant clinical findings and history, and when the Pap result is evaluated along with historic and current clinical information. COMMENT: This Pap test has been evaluated with computer assisted technology. [facility] Heel Seat Fitter Machine: SEE COMMENT [facility] Comment: LOY MARIANO(ASCP) CT screening location: [place] [address] HPV nRNA E6/E7 Not Detected Not Detected [facility] Comment: Methodology: Clock Assembler-Mediated Amplification This assay detects E6/E7 viral messenger RNA (mRNA) from 14 high-risk HPV types (16,18,31,33,35,39,45,51,52,56,58,59,66,68). The analytical performance characteristics of this assay have been determined by [facility]. The modifications have not been cleared or approved by the FDA. This assay has been validated pursuant to the CLIA regulations and is used for clinical purposes. For additional information, please refer to http://education.[employer]/faq/WGT092a8 (This link if provided for information/ educational purposes only.) Interpretation/Re sult: Negative for intraepithelial lesion or malignancy. [facility] LMP: NONE GIVEN [facility] Neisseria gonorrhoeae RNA, TMA, Urogenital NOT DETECTED NOT DETECTED [facility] Prev. BX: NONE [facility]IV[facility] Prev. PAP: NONE [facility]IV[facility] SOURCE: None given [facility] Statement Of Adequacy: SEE COMMENT [facility] Comment: Satisfactory for evaluation. Endocervical/transformation zone component present. Trichomonas vaginalis, QL, TMA, PAP Vial NOT DETECTED NOT DETECTED [facility] Comment: The analytical performance characteristics of this assay have been determined by [facility]. The modifications have not been cleared or approved by the FDA. This assay has been validated pursuant to the CLIA regulations and is used for clinical purposes. For additional information, please refer to http://education.[employer]/ faq/Trichomonastma (This link is being provided for information/ educational purposes only.) 08/11/2021 Ariella Ortiz MD LAB PATHOLOGY ORDERAB LES Final Result [facility] [address] * Hm Colonoscopy (01/16/2021 5:21 PM EDT) [facility] Provider HEALTH MAINTENANCE Final Result from Last 3 Months or Most Recently Relevant to Health Maintenance Insurance [facility] C3 DENTAL-[facility] MEDICAID STAND ADULT Care Teams Consulting Property Manager Relationship Specialty Start Date End Date Ariella Scales MD [address] [place] [phone] PCP - General Family Medicine 06/25/18
--- OUTSIDE RECORDS SUMMARY | 2025-07-13 11:33 | XMS_ITS | Encounter Summary ---
Author Organization [employer] Address [address] 7t [place] [address] Care Team Providers Care Senior Health Physics Technician Name Role Phone Ariella Scales MD Primary Care Provide r Encounter Details Date Type Department Care Team (Late st Contact Info) Description 02/11/2025 Orders Only [facility] MED & PEDS [address] [place], [place] [phone] Provider, MD Poonam Social History Tobacco Use Types Packs/Day Years [...] Description 08/16/2025 2:45 PM EST Office Visit [facility] MEDICINE [address] [place] [address] Ariella Scales MD [address] [place] [address] documented as of this encounter Procedures Procedure Name Priority Date/Time Associated Diagnosis Comments HM COLONOSCOPY Routine 01/16/2021 5:21 PM EDT documented in this encounter Results * Hm Colonoscopy (01/16/2021 5:21 PM EDT) Historical Provider HEALTH MAINTENANCE Final Result documented in this encounter Visit Diagnoses Not on filedocumented in this encounter Additional Health Concerns Assessment Noted Time PHQ-9 Depression Total Score: 0 04/15/20 24 3:20 PM EDT documented as of this encounter Care Teams Senior Health Physics Technician Relationship Specialty Start Date End Date Ariella Scales MD [address] [place] [address] [phone] PCP - General Family Medicine 06/25/18 documented as of this encounter
--- OUTSIDE RECORDS SUMMARY | 2025-07-13 11:33 | XMS_ITS | Encounter Summary ---
Author Organization [facility] Address [address] [facility] 7t [place] [address] Care Team Providers Care Defect Repairer Glassware Name Role Phone Ariella Scales MD Primary Care Provide r Encounter Details Date Type Department Care Team (Latest Contact Info) Description 12/24/2018 Abstract [facility] CONVERSIONS Dental, Provider, DDS Social History Tobacco Use Types Packs/Day Years Used Date Smoking Tobacco: Never Assessed Comments Unknown Sex and Gender Information Value [...] Description 08/16/2025 2:45 PM EST Office Visit [facility] MEDICINE [address] [place] [address] Ariella Scales MD [address] [place] [address] documented as of this encounter Visit Diagnoses Not on filedocumented in this encounter Care Teams Defect Repairer Glassware Relationship Specialty Start Date End Date Ariella Scales MD [address] [place] [address] PCP - General Family Medicine 06/25/18 documented as of this encounter
--- OUTSIDE RECORDS SUMMARY | 2025-07-13 11:33 | XMS_ITS | Encounter Summary ---
Author Organization [facility] Address [address] [facility] 7t [place] [address] Care Team Providers Care Machinist Name Role Phone Ariella Scales MD Primary Care Provide r Encounter Details Date Type Department Care Team (Late Contact Info) Description 11/06/2022 Abstract [facility] [place] [facility] MEDICINE [address] [place] [phone] Sisi Madsen RN [address] [place] [phone] Social History Tobacco Use Types Packs/Day Years [...] Encounters Date Type Department Care Team (Late Contact Info) Description 08/16/2025 2:45 PM EST Office Visit [facility] [place] [facility] MEDICINE [address] [place] [phone] Ariella Scales MD [address] [place] [address] documented as of this encounter Visit Diagnoses Not on filedocumented in this encounter Care Teams Machinist Relationship Specialty Start Date End Date Ariella Scales MD [address] [place] [phone] PCP - General Family Medicine 06/25/18 documented as of this encounter
--- OUTSIDE RECORDS SUMMARY | 2025-07-13 11:33 | XMS_ITS | Patient Health Record ---
Author Organization [facility] Address [address] [place] [address] Care Team Providers Care Ferry Terminal Agent Name Role Phone Otilia Ray MD Primary [...] Problem Status W/U Status Risk Notes Problem [id number] Dysphagia, unspecified type (R13.10) Active confirmed Problem [id number] Irritable bowel syndrome with constipation (K58.1) Active confirmed Plan Of Treatment Pending Test Test Name Order Date XR GI SERIES 10/16/2017 Insurance Providers Payer Name Payer Address Payer Phone Subscriber Number Group Number Insured Name Patient Relationship to Insured Coverage Start Date Coverage End Date MEDICA[facility] [facility] [address] [place] [id number] [id number] CORNELL JOHNSON Self - patient is the insured Medical (General) History Medical History History ICD Code GERD asthma Denies CO,DM,CVA,renal disease Surgical History Surgery Date(Month/Year) tubal ligation breast reduction hand surgery
--- OUTSIDE RECORDS SUMMARY | 2025-07-13 11:33 | XMS_ITS | Encounter Summary ---
Author Organization [employer] Address [address] [facility] 7t [place] [address] Care Team Providers Care Spool Tender Name Role Phone Ariella Scales MD Primary Care Provide r Reason for Visit * Reason Comments Med Refill Encounter Details Date Type Department Care Team ([facility] Contact Info) Description 08/24/2023 Refill [facility] MEDICINE [address] [place], [place] [phone] [facility] [address] [place], [place] [phone] Constipation, unspecified constipation type Social History Tobacco [...] Description 08/16/2025 2:45 PM EST Office Visit [facility] MEDICINE [address] [place] [phone] Ariella Scales MD [address] [place] [address] documented as of this encounter Visit Diagnoses Diagnosis Constipation, unspecified constipation type documented in this encounter Additional Health Concerns Assessment Noted Time PHQ-9 Depression Total Score: 4 02/07/20 23 8:57 AM EDT documented as of this encounter Care Teams Spool Tender Relationship Specialty Start Date End Date Ariella Scales MD [address] [place] [phone] PCP - General Family Medicine 06/25/18 documented as of this encounter
--- OUTSIDE RECORDS SUMMARY | 2025-07-13 11:33 | XMS_ITS | Encounter Summary ---
Author Organization [employer] Address [address] 7[address] [place] [address] Care Team Providers Care Head Men'S Golf Coach Name Role Phone Ariella Scales MD Primary Care Provide r Reason for Visit * Reason Comments Med Refill Encounter Details Date Type Department Care Team ([facility] Contact Info) Description 03/31/2024 Refill [facility] WALK[facility] C[facility] [address] [place], [place] [phone] Ariella Scales MD [address] [place], [place] [phone] Uncomplicated asthma, unspecified asthma severity, unspecified whether persistent Social History Tobacco Use Types Packs/Day Years [...] Description 08/16/2025 2:45 PM EST Office Visit [facility] MEDICINE [address] [place] [address] Ariella Scales MD [address] [place] [address] documented as of this encounter Visit Diagnoses Diagnosis Uncomplicated asthma, unspecified asthma severity, unspecified whether persistent documented in this encounter Additional Health Concerns Assessment Noted Time PHQ-9 Depression Total Score: 4 02/07/20 23 8:57 AM EDT documented as of this encounter Care Teams Head Men'S Golf Coach Relationship Specialty Start Date End Date Ariella Scales MD [address] [place] [phone] PCP - General Family Medicine 06/25/18 documented as of this encounter
--- OUTSIDE RECORDS SUMMARY | 2025-07-13 11:33 | XMS_ITS | Encounter Summary ---
Author Organization [employer] Address [address] [facility] 7t [place] [address] Care Team Providers Care Hat Model Name Role Phone Ariella Scales MD Primary Care Provide r Reason for Visit * Reason Comments Med Refill Encounter Details Date Type Department Care Team ([facility] Contact Info) Description 07/23/2024 Refill [facility] [address] [place], [place] [phone] rAiella Scales MD [address] [place], [place] [phone] Uncomplicated asthma, unspecified asthma severity, unspecified whether [...] 2:45 PM EST Office Visit [facility] [address] [place] [address] Ariella Scales MD [address] [place] [address] documented as of this encounter Visit Diagnoses Diagnosis Uncomplicated asthma, unspecified asthma severity, unspecified whether persistent documented in this encounter Additional Health Concerns Assessment Noted Time PHQ-9 Depression Total Score: 0 04/15/20 24 3:20 PM EDT documented as of this encounter Care Teams Hat Model Relationship Specialty Start Date End Date Ariella Scales MD [address] [place] [address] PCP - General Family Medicine 06/25/18 documented as of this encounter
--- OUTSIDE RECORDS SUMMARY | 2025-07-13 11:33 | XMS_ITS | Encounter Summary ---
Author Organization [employer] Address [address] 7t [place] [address] Care Team Providers Care Still Operator Batch Or Continuous Name Role Phone Ariella Scales MD Primary Care Provide r Reason for Visit * Reason Comments Med Refill Encounter Details Date Type Department Care Team ([facility] Contact Info) Description 07/13/2025 Refill [facility] WALK[facility] [address] [place], [place] [phone] Ariella Scales MD [address] [place], [place] [phone] Social History Tobacco Use Types Packs/Day Years [...] 08/16/2025 2:45 PM EST Office Visit [facility] MEDICINE [address] [place] [address] Ariella Scales MD [address] [place] [address] documented as of this encounter Visit Diagnoses Not on filedocumented in this encounter Additional Health Concerns Assessment Noted Time PHQ-9 Depression Total Score: 0 04/15/20 24 3:20 PM EDT documented as of this encounter Care Teams Still Operator Batch Or Continuous Relationship Specialty Start Date End Date Ariella Scales MD [address] [place] [address] PCP - General Family Medicine 06/25/18 documented as of this encounter
--- OUTSIDE RECORDS SUMMARY | 2025-07-13 11:33 | XMS_ITS | Encounter Summary ---
Author Organization [employer] Address [address] [facility] 7t [place] [address] Care Team Providers Care Shuttle Route Vehicle Operator Name Role Phone Ariella cSales MD Primary Care Provide r Reason for Visit * Reason Comments Med Refill Encounter Details Date Type Department Care Team ([facility] Contact Info) Description 01/10/2024 Refill [facility] MEDICINE [address] [place], [place] [phone] Ariella Scales MD [address] [place], [place] [phone] Uncomplicated asthma, unspecified asthma severity, unspecified whether [...] Description 08/16/2025 2:45 PM EST Office Visit [facility] MEDICINE [address] [place] [address] Ariella Scales MD [address] [place] [address] documented as of this encounter Visit Diagnoses Diagnosis Uncomplicated asthma, unspecified asthma severity, unspecified whether persistent documented in this encounter Additional Health Concerns Assessment Noted Time PHQ-9 Depression Total Score: 4 02/07/20 23 8:57 AM EDT documented as of this encounter Care Teams Shuttle Route Vehicle Operator Relationship Specialty Start Date End Date Ariella Scales MD [address] [place] [address] PCP - General Family Medicine 06/25/18 documented as of this encounter
--- OUTSIDE RECORDS SUMMARY | 2025-07-13 11:33 | XMS_ITS | Encounter Summary ---
Author Organization [employer] Address [address] 7t [place] [address] Care Team Providers Care Apple Checker Name Role Phone Ariella Scales MD Primary Care Provide r Reason for Visit * Reason Comments Med Refill Encounter Details Date Type Department Care Team ([facility] [address] Contact Info) Description 12/01/2023 Refill [facility] MEDICINE [address] [place], [place] [phone] Ariella Scales MD [address] [place], [place] [phone] Uncomplicated asthma, unspecified asthma severity, unspecified whether [...] Description 08/16/2025 2:45 PM EST Office Visit [facility] MEDICINE [address] [place] [phone] Ariella Scales MD [address] [place] [address] documented as of this encounter Visit Diagnoses Diagnosis Uncomplicated asthma, unspecified asthma severity, unspecified whether persistent documented in this encounter Additional Health Concerns Assessment Noted Time PHQ-9 Depression Total Score: 4 02/07/20 23 8:57 AM EDT documented as of this encounter Care Teams Apple Checker Relationship Specialty Start Date End Date Ariella Scales MD [address] [place] [address] PCP - General Family Medicine 06/25/18 documented as of this encounter
--- OUTSIDE RECORDS SUMMARY | 2025-07-13 11:33 | XMS_ITS | Encounter Summary ---
Author Organization [employer] Address [address] [facility] 7t [place] [address] Care Team Providers Care Transition Specialist Name Role Phone Ariella Scales MD Primary Care Provide r Reason for Visit * Reason Onset Date Comments [facility] 1:40 11/10/2024 Encounter Details Date Type Department Care Team ([facility] st Contact Info) Description 11/10/2024 Telephone [facility] MEDICINE [address] [place], [place] [phone] Ariella Scales MD [address] [place], [place] [phone] [place] 1:40 Social History Tobacco Use Types Packs/Day Years [...] your housing situation today? I have pako jong 04/15/[address] you li [...] AM EDT documented as of this encounter Miscellaneous Notes * Telephone Encounter - Bari Mcgill - 11/10/2024 12:16 PM EST Pt called to cancel walk in visit at 1:40 states will come in at a later time. documented in this encounter Plan of Treatment Upcoming Encounters Date Type Department Care Team (Late st Contact Info) Description 08/16/2025 2:45 PM EST Office Visit [facility] MEDICINE [address] [place] [address] Ariella Scales MD [address] [place] [address] documented as of this encounter Visit Diagnoses Not on filedocumented in this encounter Additional Health Concerns Assessment Noted Time PHQ-9 Depression Total Score: 0 04/15/20 24 3:20 PM EDT documented as of this encounter Care Teams Transition Specialist Relationship Specialty Start Date End Date Ariella Scales MD [address] [place] [address] PCP - General Family Medicine 06/25/18 documented as of this encounter
== END 2025-07-13 10:48 | disposition home or self-care (01) ==
LOC: HO.HWS 10:24
PROVIDERS: PCP Internal Medicine; Visit Provider Obstetrics & Gynecology
DX: N76.0 Acute vaginitis (principal)
CPT/HCPCS: 99213

== ENCOUNTER 2025-07-13 10:24 | Outpatient (REF) | payer MEDICAID, SELFPAY ==
[2025-07-13 16:11] LABS: Bacterial Vaginosis PCR NEGATIVE (Negative); Candida Group PCR NOT DETECTED (Not Detect); Candida glab krusei PCR NOT DETECTED (Not Detect); Trichomonas vaginalis PCR NOT DETECTED (Not Detect)
[2025-07-13 16:42] LABS: CT PCR NOT DETECTED (Not Detect.); NG PCR NOT DETECTED (Not Detect.)
== END 2025-07-13 10:25 | disposition home or self-care (01) ==
LOC: HO.LNP 10:24
PROVIDERS: Visit Provider Obstetrics & Gynecology
DX: N76.0 Acute vaginitis (principal); Z20.2 Contact with and (suspected) exposure to infections with a predominantly sexual mode of transmission
CPT/HCPCS: 81515; 87491; 87591; 99212

== ENCOUNTER 2025-07-13 10:24 | Outpatient (REF) | payer MEDICAID, SELFPAY | END 2025-07-13 10:25 | disposition home or self-care (01) | LOC: HO.LNP 10:24 | PROVIDERS: PCP Internal Medicine; Visit Provider Obstetrics & Gynecology | DX: Z13.89 Encounter for screening for other disorder (principal) | CPT/HCPCS: 99212 ==

== ENCOUNTER 2025-08-24 08:17 | Outpatient (REF) | payer MEDICAID, SELFPAY ==
--- OUTSIDE RECORDS SUMMARY | 2025-08-24 08:24 | XMS_ITS | Patient Health Record ---
Author Organization [facility] Address [address] [place] [address] Care Team Providers Care Leakage Tester Name Role Phone Cory GARCIA, Otilia Primary Care Provider Robert Wolf Jr Reason [...] Problem Status W/U Status Risk Notes Problem Dysphagia ([id number]) Dysphagia, unspecified type (R13.10) Active confirmed Problem Irritable bowel syndrome characterized by constipation ([id number]) Irritable bowel syndrome with constipation (K58.1) Active confirmed Plan Of Treatment Pending Test Test Name Order Date XR GI SERIES 10/16/2017 Insurance Providers Payer Name Payer Address Payer Phone Subscriber Number Group Number Insured Name Patient Relationship to Insured Coverage Start Date Coverage End Date MEDICAID OF [employer] [address] [place] [id number] CORNELL JOHNSON Self - patient is the insured Medical (General) History Medical History History ICD Code GERD asthma Denies [place],DM,CVA,renal disease Surgical History Surgery Date(Month/Year) tubal ligation breast reduction hand surgery
--- OUTSIDE RECORDS SUMMARY | 2025-08-24 08:24 | XMS_ITS | Encounter Summary ---
Author Organization [employer] Address [address] [facility] 7t [place] [address] Care Team Providers Care Creative Technologist Name Role Phone Ariella Scales MD Primary Care Provide r Encounter Details Date Type Department Care Team (Late Contact Info) Description 11/06/2022 Abstract [facility] MEDICINE [address] [place] [phone] Sisi Madsen RN [address] [place] [phone] Social History Tobacco Use Types Packs/Day Years [...] Department Care Team (Late Contact Info) Description 08/26/2025 1:45 PM EST Telemedicine [facility] MEDICINE [address] [place] [phone] Ariella Scales MD [address] [place], [place] [phone] documented as of this encounter Visit Diagnoses Not on filedocumented in this encounter Care Teams Creative Technologist Relationship Specialty Start Date End Date Ariella Scales MD [address] [place] [address] [phone] PCP - General Family Medicine 06/25/18 documented as of this encounter
--- OUTSIDE RECORDS SUMMARY | 2025-08-24 08:24 | XMS_ITS | Encounter Summary ---
Author Organization [employer] Address [address] [facility] [address] [place] [address] Care Team Providers Care Raw Juice Weigher Name Role Phone Ariella Scales MD Primary Care Provide r Reason for Visit * Reason Comments Med Refill Encounter Details Date Type Department Care Team ([facility] Contact Info) Description 03/31/2024 Refill [facility] [address] [place], [place] [phone] Ariella Scales MD 230 [place], [place] [phone] Uncomplicated asthma, unspecified asthma severity, unspecified whether [...] Care Team (Late st Contact Info) Description 08/26/2025 1:45 PM EST Telemedicine [facility] MEDICINE [address] [place] [address] Ariella Scales MD 230 [place] [address] documented as of this encounter Visit Diagnoses Diagnosis Uncomplicated asthma, unspecified asthma severity, unspecified whether persistent documented in this encounter Additional Health Concerns Assessment Noted Time PHQ-9 Depression Total Score: 4 02/07/20 23 8:57 AM EDT documented as of this encounter Care Teams Raw Juice Weigher Relationship Specialty Start Date End Date Ariella Scales MD [address] [place] [id number] PCP - General Family Medicine 06/25/18 documented as of this encounter
--- OUTSIDE RECORDS SUMMARY | 2025-08-24 08:24 | XMS_ITS | Encounter Summary ---
Author Organization [facility] Address [address] [facility] 7t [place] [address] Care Team Providers Care Auto Former Machine Operator Name Role Phone Ariella Scales MD Primary Care Provide r Encounter Details Date Type Department Care Team (Latest Contact Info) Description 12/24/2018 Abstract [facility] CONVERSIONS Dental, Provider, DDS Social History [...] Info) Description 08/26/2025 1:45 PM EST Telemedicine [facility] MEDICINE 230 [place] [address] Ariella Scales MD 230 [place] [address] documented as of this encounter Visit Diagnoses Not on filedocumented in this encounter Care Teams Auto Former Machine Operator Relationship Specialty Start Date End Date Ariella Scales MD 230 [place], [place] [phone] PCP - General Family Medicine 06/25/18 documented as of this encounter
--- OUTSIDE RECORDS SUMMARY | 2025-08-24 08:24 | XMS_ITS | Encounter Summary ---
Author Organization [employer] Address [address] [facility] 7t [place] [address] Care Team Providers Care Rental Manager Name Role Phone Ariella Scales MD Primary Care Provide r Reason for Visit * Reason Onset Date Comments [facility] 1:40 11/10/2024 Encounter Details Date Type Department Care Team ([facility] st Contact Info) Description 11/10/2024 Telephone [facility] MEDICINE 230 [place], [place] [phone] Ariella Scales MD 230 [place], [place] [phone] [place] 1:40 Social History Tobacco Use Types [...] Info) Description 08/26/2025 1:45 PM EST Telemedicine [facility] MEDICINE 230 [place] [address] Ariella Scales MD 230 [place] [address] documented as of this encounter Visit Diagnoses Not on filedocumented in this encounter Additional Health Concerns Assessment Noted Time PHQ-9 Depression Total Score: 0 04/15/20 24 3:20 PM EDT documented as of this encounter Care Teams Rental Manager Relationship Specialty Start Date End Date Ariella Scales MD [address] [place] [phone] PCP - General Family Medicine 06/25/18 documented as of this encounter
--- OUTSIDE RECORDS SUMMARY | 2025-08-24 08:24 | XMS_ITS | Encounter Summary ---
Author Organization [employer] Address [address] [facility] 7t [place] [address] Care Team Providers Care Boatbuilder Apprentice Wood Name Role Phone Ariella Scales MD Primary Care Provide r Reason for Visit * Reason Comments Med Refill Encounter Details Date Type Department Care Team ([facility] Contact Info) Description 08/24/2023 Refill [facility] MEDICINE 230 [place], [place] [phone] Ariella Scales MD 230 [place], [place] [phone] Social History Tobacco Use Types Packs/Day Years [...] Info) Description 08/26/2025 1:45 PM EST Telemedicine [facility] MEDICINE [address] [place] [address] Ariella Scales MD [address] [place] [address] documented as of this encounter Visit Diagnoses Not on filedocumented in this encounter Additional Health Concerns Assessment Noted Time PHQ-9 Depression Total Score: 4 02/07/20 23 8:57 AM EDT documented as of this encounter Care Teams Boatbuilder Apprentice Wood Relationship Specialty Start Date End Date Ariella Scales MD [address] [place] [phone] PCP - General Family Medicine 06/25/18 documented as of this encounter
--- OUTSIDE RECORDS SUMMARY | 2025-08-24 08:24 | XMS_ITS | Encounter Summary ---
Author Organization [employer] Address [address] [facility] 7t [place] [address] Care Team Providers Care Product Manager Financial Services Name Role Phone Ariella Scales MD Primary Care Provide r Reason for Visit * Reason Comments Med Refill Encounter Details Date Type Department Care Team ([facility] Contact Info) Description 08/24/2023 Refill [facility] MEDICINE 230 [place], [place] [phone] [facility] 230 [place], [place] [phone] Constipation, unspecified constipation type Social History Tobacco [...] Info) Description 08/26/2025 1:45 PM EST Telemedicine [facility] MEDICINE [address] [place] [phone] Ariella Scales MD [address] [place] [address] documented as of this encounter Visit Diagnoses Diagnosis Constipation, unspecified constipation type documented in this encounter Additional Health Concerns Assessment Noted Time PHQ-9 Depression Total Score: 4 02/07/20 23 8:57 AM EDT documented as of this encounter Care Teams Product Manager Financial Services Relationship Specialty Start Date End Date Ariella Scales MD [address] [place] [phone] PCP - General Family Medicine 06/25/18 documented as of this encounter
--- OUTSIDE RECORDS SUMMARY | 2025-08-24 08:24 | XMS_ITS | Encounter Summary ---
Author Organization [employer] Address [address] [facility] [address] 7t [place] [address] Care Team Providers Care Mill Control Operator Name Role Phone Ariella Scales MD Primary Care Provide r Encounter Details Date Type Department Care Team (Late st Contact Info) Description 02/11/2025 Orders Only [facility]ED[facility] [address] [place], [place] [phone] Provider, MD [place] Social History Tobacco Use [...] Info) Description 08/26/2025 1:45 PM EST Telemedicine [facility] MEDICINE 230 [place] [address] Ariella Scales MD 230 [place] [address] documented as of this encounter Procedures Procedure [...] documented as of this encounter Care Teams Mill Control Operator Relationship Specialty Start Date End Date Ariella Scales MD [address] [place] [address] [phone] PCP - General Family Medicine 06/25/18 documented as of this encounter
--- OUTSIDE RECORDS SUMMARY | 2025-08-24 08:24 | XMS_ITS | Encounter Summary ---
Author Organization [employer] Address [address] [facility] [address] 7t [place] [address] Care Team Providers Care Grounds Caretaker Name Role Phone Ariella Scales MD Primary Care Provide r Reason for Visit * Reason Comments Med Refill Encounter Details Date Type Department Care Team ([facility] Contact Info) Description 06/28/2025 Refill [facility] 230 [place], [place] [phone] Ariella Scales MD 230 [place], [place] [phone] Subacute maxillary sinusitis Social History Tobacco Use [...] Info) Description 08/26/2025 1:45 PM EST Telemedicine [facility] MED[facility]INE [address] [place] [address] Ariella Scales MD 230 [place] [address] documented as of this encounter Visit Diagnoses Diagnosis Subacute maxillary sinusitis documented in this encounter Additional Health Concerns Assessment Noted Time PHQ-9 Depression Total Score: 0 04/15/20 24 3:20 PM EDT documented as of this encounter Care Teams Grounds Caretaker Relationship Specialty Start Date End Date Ariella Scales MD [address] [place] [phone] PCP - General Family Medicine 06/25/18 documented as of this encounter
--- OUTSIDE RECORDS SUMMARY | 2025-08-24 08:24 | XMS_ITS | Encounter Summary ---
Author Organization [employer] Address [address] [facility] [address] 7t [place] [address] Care Team Providers Care Director Of Home Care Hospice Name Role Phone Ariella Scales MD Primary Care Provide r Reason for Visit * Reason Comments Med Refill Encounter Details Date Type Department Care Team ([facility] Contact Info) Description 12/01/2023 Refill [facility] MEDICINE 230 [place], [place] [phone] Ariella Scales MD 230 [place], [place] [phone] Uncomplicated asthma, unspecified asthma severity, unspecified whether [...] Info) Description 08/26/2025 1:45 PM EST Telemedicine [facility] MEDICINE [address] [place] [address] Ariella Scales MD 230 [place] [address] documented as of this encounter Visit Diagnoses Diagnosis Uncomplicated asthma, unspecified asthma severity, unspecified whether persistent documented in this encounter Additional Health Concerns Assessment Noted Time PHQ-9 Depression Total Score: 4 02/07/20 23 8:57 AM EDT documented as of this encounter Care Teams Director Of Home Care Hospice Relationship Specialty Start Date End Date Ariella Scales MD [address] [place] [phone] PCP - General Family Medicine 06/25/18 documented as of this encounter
--- OUTSIDE RECORDS SUMMARY | 2025-08-24 08:24 | XMS_ITS | Encounter Summary ---
Author Organization [employer] Address [address] [facility] [address] 7[address] [place] [address] Care Team Providers Care Day Camp Counselor Name Role Phone Ariella Scales MD Primary Care Provide r Reason for Visit * Reason Comments Med Refill Encounter Details Date Type Department Care Team ([facility] st Contact Info) Description 12/13/2024 Refill [facility] [address] [place], [place] [phone] Ariella Scales MD 230 [place] [address] Primary hypertension Social History Tobacco Use Types [...] Info) Description 08/26/2025 1:45 PM EST Telemedicine [facility] MEDICINE 230 [place] [address] Ariella Scales MD 230 [place] [address] documented as of this encounter Visit Diagnoses Diagnosis Primary hypertension Unspecified essential hypertension documented in this encounter Additional Health Concerns Assessment Noted Time PHQ-9 Depression Total Score: 0 04/15/20 24 3:20 PM EDT documented as of this encounter Care Teams Day Camp Counselor Relationship Specialty Start Date End Date Ariella Scales MD [address] [place] [phone] PCP - General Family Medicine 06/25/18 documented as of this encounter
--- OUTSIDE RECORDS SUMMARY | 2025-08-24 08:24 | XMS_ITS | Encounter Summary ---
Author Organization [employer] Address [address] [facility] [address] [place] [address] Care Team Providers Care Quality Reviewer Name Role Phone Ariella Scales MD Primary Care Provide r Reason for Visit * Reason Comments Med Refill Encounter Details Date Type Department Care Team ([facility] Contact Info) Description 01/10/2024 Refill [facility] MEDICINE 230 [place], [place] [phone] Ariella Scales MD 230 [place], [place] [phone] Uncomplicated asthma, unspecified asthma severity, unspecified whether [...] Info) Description 08/26/2025 1:45 PM EST Telemedicine [facility] MEDICINE [address] [place] [address] Ariella Scales MD 230 [place] [address] documented as of this encounter Visit Diagnoses Diagnosis Uncomplicated asthma, unspecified asthma severity, unspecified whether persistent documented in this encounter Additional Health Concerns Assessment Noted Time PHQ-9 Depression Total Score: 4 02/07/20 23 8:57 AM EDT documented as of this encounter Care Teams Quality Reviewer Relationship Specialty Start Date End Date Ariella Scales MD [address] [place] [phone] PCP - General Family Medicine 06/25/18 documented as of this encounter
--- OUTSIDE RECORDS SUMMARY | 2025-08-24 08:25 | XMS_ITS | Encounter Summary ---
Author Organization [employer] Address [address] [facility] 7t [place] [address] Care Team Providers Care Automobile Parts Assembler Name Role Phone Ariella Scales MD Primary Care Provide r Reason for Visit * Reason Comments Med Refill Encounter Details Date Type Department Care Team ([facility] Contact Info) Description 07/23/2024 Refill [facility] MEDICINE 230 [place], [place] [phone] Ariella Scales MD 230 [place], [place] [phone] Uncomplicated asthma, unspecified asthma severity, unspecified whether [...] Info) Description 08/26/2025 1:45 PM EST Telemedicine [facility] MEDICINE 230 [place] [address] Ariella Scales MD 230 [place] [address] documented as of this encounter Visit Diagnoses Diagnosis Uncomplicated asthma, unspecified asthma severity, unspecified whether persistent documented in this encounter Additional Health Concerns Assessment Noted Time PHQ-9 Depression Total Score: 0 04/15/20 24 3:20 PM EDT documented as of this encounter Care Teams Automobile Parts Assembler Relationship Specialty Start Date End Date Ariella Scales MD 230 [place] [address] PCP - General Family Medicine 06/25/18 documented as of this encounter
--- OUTSIDE RECORDS SUMMARY | 2025-08-24 08:25 | XMS_ITS | Clinical Summary ---
Author Organization [employer] Address [address] [facility] [address] [place] [address] Care Team Providers Care Global Mobility Specialist Name Role Phone Ariella Scales MD Primary Care Provide r Allergies Active Allergy Reactions Criticality Noted Date Comments [employer] 01/28/2025 Medications * This document contains information received from the source organization and may not represent a complete record from that organization. Allergy Relief 180 MG tablet TAKE 1 TABLET BY MOUTH EVERY DAY 90 tablet 023 Active FT Earwax Removal 6.5 % otic solutionIndicat ions:Impacted cerumen, right ear PLACE 5 DROPS IN THE RIGHT EAR TWICE DAILY FOR FOUR DAYS 15 mL 024 Active cetirizine (ZyrTEC) 10 MG tabletIndicatio ns:Seasonal allergies Take 1 tablet (10 mg) by mouth in the morning. 90 tablet 024 Active Mometasone Furoate (Asmanex HFA) 200 MCG/ACT aerosol INHALE 1 PUFF BY MOUTH EVERY MORNING AND EVERY NIGHT AT BEDTIME. RINSE MOUTH WITH WATER AFTER USE. DO NOT SWALLOW. USE SPACER 13 g 024 Active baclofen (Lioresal) 10 MG tabletIndicatio ns:Strain of calf muscle, left, initial encounter Take 1 tablet (10 mg) by mouth if needed in the morning, at noon, and at bedtime for muscle spasms. 90 tablet 024 Active ibuprofen 600 MG tabletIndicatio ns:Strain of calf muscle, left, initial encounter Take 1 tablet (600 mg) by mouth if needed in the morning, at noon, in the evening, and at bedtime for mild pain. 90 tablet 024 Active albuterol (2.5 MG/3ML) 0.083% nebulizer solution USE 3 ML VIA NEBULIZER THREE TIMES DAILY NEEDED 90 mL 024 Active senna (Senokot) 8.6 MG tabletIndicatio ns:Constipation , unspecified constipation type TAKE 1 TABLET BY MOUTH EVERY DAY NEEDED FOR CONSTIPATION 90 tablet 1 024 Active famotidine (Pepcid) 40 MG tablet Take 40 mg by mouth at bedtime. 024 Active famotidine (Pepcid) 40 MG/5ML suspension Take 2.1 mL (16.8 mg) by mouth 2 times daily for 3 days. Resume once a day after bid for three days compleated 6 mL 2 025 Active cholecalciferol (Vitamin D-3) 25 MCG (1000 UT) capsule TAKE 1 CAPSULE BY MOUTH EVERY DAY 90 capsule 025 Active hydrOXYzine pamoate (Vistaril) 25 MG capsuleIndicati ons:Anxiety TAKE 1 CAPSULE BY MOUTH EVERY 8 HOURS NEEDED FOR ITCHING 30 capsule 1 025 Active albuterol (Ventolin HFA) 108 (90 Base) MCG/ACT inhalerIndicati ons:Uncomplicat ed asthma, unspecified asthma severity, unspecified whether persistent INHALE 2 PUFFS BY MOUTH EVERY 4 TO 6 HOURS NEEDED FOR ASTHMA OR FOR COUGH 18 g 1 025 Active fluticasone (Flonase) 50 MCG/ACT nasal sprayIndication s:Subacute maxillary sinusitis SHAKE LIQUID AND USE 2 SPRAYS IN EACH NOSTRIL EVERY DAY NEEDED FOR NASAL CONGESTION 48 g 025 Active sucralfate (Carafate) 1 GM/10ML suspension GIVE 10 ML BY MOUTH FOUR TIMES DAILY 473 mL 1 025 Active amLODIPine (Norvasc) 10 MG tabletIndicatio ns:Primary hypertension TAKE 1 TABLET BY MOUTH EVERY DAY 90 tablet 025 Active meclizine (Antivert) 25 MG tabletIndicatio ns:Vertigo Take 1 tablet (25 mg) by mouth if needed in the morning, at noon, and at bedtime for dizziness for up to 10 days. 30 tablet 025 2024 Active citalopram (CeleXA) 10 MG tabletIndicatio ns:Anxiety Take 1 tablet (10 mg) by mouth Once per day. 30 tablet 1 025 2024 Active amLODIPine (Norvasc) 10 MG tabletIndicatio ns:Primary hypertension TAKE 1 TABLET BY MOUTH EVERY DAY 90 tablet 025 2024 Discontinued(R eorder (will not trigger notification to Pharmacy)) sertraline (Zoloft) 50 MG tabletIndicatio ns:Anxiety TAKE 1 TABLET BY MOUTH ONCE DAILY 30 tablet 2 025 2024 Discontinued Active Problems Problem Noted Date Diagnosed Date Irritable bowel syndrome with constipation 08/23 Dysphagia 08/16/2025 Encounter for preventive care 08/16/2025 Dizziness 08/16/2025 Vertigo 08/16/2025 Epigastric pain 01/28/2025 Assessment & Plan (01/28/2025 9:40 AM EDT): Reports abd pain, nausea, vomiting, diarrhea and now constipation after eating almonds and kaushal seeds. -increased Famotidine BID for 3 days. -no evidence of dehydration on exam. -no evidence of acute abdomen. -supportive care with fluids. Followed by [facility], has appt in 1 month, end [...] rhinitis 06/25/2017 Mild persistent asthma 06/25/2017 Encounters * This document contains information received from the source organization and may not represent a complete record from that organization. Date Type Department Care Team Description 08/16/2025 2:45 PM EST Office Visit [facility] [address] [place] [phone] Ariella Scales MD Dietary counseling; Exercise counseling; Class 1 obesity due to excess calories without serious comorbidity with body mass index (BMI) of 30.0 to 30.9 in adult; Uncomplicated asthma, unspecified asthma severity, unspecified whether persistent; Encounter for preventive care; Vertigo; Anxiety 08/16/2025 Telephone [facility] [address] [place] [phone] Ariella Scales MD 08/16/2025 Travel 08/10/2025 1:15 PM EDT Office Visit [facility] OPTOMETRY [address] [place] [phone] Stone, Christianne, OD Presbyopia (Primary Dx) 08/09/2025 Patient Outreach [facility] [address] [place] [phone] Ariella Scales MD Pre-visit Planning (SDOH screening negative and Tobacco screening negative) 08/02/2025 Refill [facility] [address] [place], [place] [phone] Ariella Scales MD Primary hypertension 07/13/2025 Refill [facility] [address] [place] [phone] Ariella Scales MD 06/28/2025 Refill [facility] [address] [place] [phone] Ariella Scales MD Subacute maxillary sinusitis 06/21/2025 Refill [facility] [address] [place] [phone] Ariella Scales MD Subacute maxillary sinusitis 06/04/2025 Refill [facility] [address] [place] [phone] Ariella Scales MD Anxiety from Last 3 Months Immunizations Immunization Administration [...] housing situation today? I have pako sunshine 08/09/[address] you li ve. Do you have problems with any of the following? None of the above 08/09/2025 Food Insecurity Answer Date Recorded Within the past 12 months, y ou worried that your food would run out before you got money to buy more: Never True 08/09/2025 Within the past 12 months,th e food you bought just didn't last and you didn't have enough money to get more: Never True Transportation Answer Date Recorded In the past 12 months, has l ack of transportation kept you from medical appts, meetings, work or from getting things needed for daily living? Yes, it has kept me from non-medical meetings, work, or getting things that I need;No 08/09/2025 Utilities Answer Date Recorded In the past 12 months, has t he electric, gas, oil or water company threatened to shut off services in your home? No 08/09/2025 Depression Answer Date Recorded Patient Health Questionnaire-2 Score 0 04/15/2024 Internet Access Answer Date Recorded Internet Access Q1 Yes 08/09/2025 Internet Access Q2 Not on file 08/09/2025 Comments Unknown Sex and Gender Information Value Date Recorded Sex Assigned at Female 08/13/2022 10:16 AM EDT Legal Sex Female 10:16 AM EDT Gender Identity Female 08/13/2022 10:16 AM EDT Sexual Orientation Straight 08/13/2022 10 :16 AM EDT Last Filed Vital Signs Vital Sign Reading Time Taken Comments Blood Pressure 130/92 08/16/2025 2:51 PM EST Pulse 89 08/16/2025 2:51 PM EST Temperature 33.3 C (92 F) 08/16/2025 2:51 PM EST Respiratory Rate 15 08/16/2025 2:51 PM EST Oxygen Saturation 98% 08/16/2025 2:51 PM EST Inhaled Oxygen Concentration - - Weight 70.2 kg (154 lb 12.8 oz) 08/16/2025 2:51 PM EST Height 152.4 cm (5') 08/16/2025 2:51 PM EST Body Mass Index 30.23 08/16/2025 2:51 PM EST Plan of Treatment Upcoming Encounters Date Type Department Care Team (Late st Contact Info) Description 08/26/2025 1:45 PM EST Telemedicine [facility] [address] [place] [address] Ariella Scales MD [address] [place] [phone] Health Maintenance Due Date Last Done Comments [...] Td or Tdap) 09/28/2023 09/28/2013, 11/28/2012, 10/14/2006 Depression Screening 04/15/2025 04/15/2024, 04/15/20 24 Mammogram 11/17/2025 11/17/2024, 10/16, 10/31/2022, Additional history exists Colonoscopy 01/16/2026 01/16/2021 Colorectal Cancer Screening 01/16/2026 SDOH Screening 08/09/2026 08/09/2025 Tobacco Screening 08/16/2026 08/16/2025 Cervical Cancer Screening 04/03/2028 HPV/Cotest 04/03/2028 08/11/2021 Pap Smear 04/03/2028 04/03/2023, 08/11/2021 Lipid Panel 10/18/2028 10/18/2023, 04/0 03/2022, 04/20/2021 RSV Patients and Patients Aged 60 years or older (1 - 1-dose 75+ series) 2049 HIV Screening Completed 01/17/2022 Hepatitis C Screening Completed 01/17/2022 Pneumococcal Vaccine: 50+ Years Completed 04/15/2024, 10/03/2005 COVID-19 Vaccine Completed 07/29/2024, 05/2023, 08/28/2021, Additional history exists Influenza Vaccine Completed 07/14/2025, , 10/24/2023, Additional history exists Zoster Vaccines Completed 07/14/2025, 07/29/2024 HIB Vaccines Aged Out No longer eligi [...] Procedure Name Priority Date/Time Associated Diagnosis Comments BI MAMMOGRAM SCREENING TOMOSYNTHESIS BILATERAL Routine 11/17/2024 [...] Recently Relevant to Health Maintenance Results * BI Mammogram Screening Tomosynthesis Bilateral (11/17/2024 2:40 PM EST) Anatomical Region Laterality Modality Breast Bilateral Mammography 11/17/2024 2:40 PM EST Narrative 11/23/2024 5:38 PM EST [facility] [address] [place] [address] Mammography Report Signed Patient: Bev Tomlin MR#: [id number] : 1975 Acct:[id number] Age/Sex: 49 / F ADM Date: 11/17/24 Loc: HO.MAMMO Attending Dr: Ariella Ortiz MD Ordering Physician: Ariella Scales MD Results: 2Benign Findings Date of Service: 11/17/24 Follow Up: 1 Year From Orig inal Mammogram Procedure(s): MM tomosynthesis screening BI Accession Number(s): [id number] cc: Ariella Scales MD EXAMINATION: MM SCREENING [...] by: Corazon Pickett DO 11/23/2024 05:34 PM [facility] Dictated By: Corazon Pickett DO Signed By: <Electronically signed by Corazon Pickett DO in OV> 11/23/24 1734 DD/ 1440 TD/TT: 11/17/24 1450 Manager Product Support: Procedure Note Donotuseinterpreter, Image - 11/23/20[facility] [address] [place] [address] Mammography Report Signed Patient: Enoch TomlinR#: [id number] : 1975Acct:[id number] Age/Sex: 49 / FADM Date: 11/17/24 Loc: HO.MAMMO Attending Dr: Ariella Ortiz MD Ordering Physician: Ariella Scales MDResults: 2Benign Findings Date of Service: 11/17/24Follow Up: 1 Year From Orig ina Mammogram Procedure(s): MM tomosynthesis screening BI Accession Number(s): [id number] cc: Ariella Scales MD EXAMINATION: MM SCREENING [...] Corazon Pickett DO 11/23/2024 05:34 PM EST Dictated By: Corazon Pickett DO Signed By: <Electronically signed by Corazon Pickett DO in OV> 11/23/24 1734 DD/ 1440 TD/TT: 11/17/24 1450 Manager Product Support: us Ariella Ortiz MD IM BI PROCEDURES Fin al Result * (ABNORMAL) Lipid Panel, Standard (10/18/2023 8:55 AM EST) Triglycerides 89 <150 mg/dL [facility] Comment:Desirable Triglyceri de: less than 150 mg/dLBorderline High Triglyceride 150-199 mg/dLHigh Triglyceride: 200-499 mg/dLVery High Triglyceride: greater than or equal to 5OO mg/dL Cholesterol 273(H) <200 mg/dL [facility] Comment:Desirable Cholestero l: less than 200 mg/dLBorderline High Cholesterol: 200-239 mg/dLHigh Cholesterol: greater than 239 mg/dL LDL Cholesterol Calculated 196(H) <100 mg/dL [facility] Comment:Desirable LDL: less than 100 mg/dLNear Optimal/Above Optimal LDL: 110- 129 mg/dLBorderline High LDL: 130-159 mg/dLHigh LDL: 160-189 mg/dLVery High LDL: greater than or equal to 190 mg/dL HDL Cholesterol 60 >40 mg/dL [facility] Comment:Desirable HDL: great er than 40 mg/dL Note: This HDL assay may give artificially low results in patients with liver disease. Blood Venous blood specimen / Unknown 10/18/2023 8:55 AM EST 10/18/2023 11:10 AM EST Ariella Ortiz MD LAB BLOOD ORDERABLES Final Result [facility] [address] [place] [phone] * Pap Smear (04/03/2023 1:39 PM EDT) 04/03/2023 1:39 PM EDT 04/04/2023 8:20 AM EDT Narrative [facility] - 04/24/2023 1:42 PM EDT ----- ------- Name: Bev Tomlin Age/Sex: 47/F : 1975 Unit#: [id number] Attend Dr: Virgie Ceja [facility] Re04/03/23 Status: DEP REF Location: [facility] Disch: ----- ------- SPEC : [id number] RECD: 04/04/23 STATUS: REJI STEVENSON NUM: [id number] WAQAS: 04/03/23 [facility] DR: BrennaBronson [facility] ENTERED: 04/04/23 SP TYPE: Pap Smr OTHR [...] 59, 66, 68) HPV testing performed by [facility], [place], [place]. See reference laboratory pion of the EMR for entire report. Clinical Information LMP: 01/26/23 Previous PAP test: 08/10/16, WNL Material Received ThinPrep-Cervical Copies To: Ariella Scales MD [address] [place] [address] Virgie Ceja [address] Caceres [address] [place] [phone] ----- ------- Signed (signature on file) Guillermina LOY Chiu ([facility]) 04/24/23 1342 ----- ------- END OF REPORT [facility] External Provider LAB CYT OLOGY ORDERABLES Final Result Performing Organization Address City/[facility]/ZIP Co de Phone Number [facility] [address] [place] [address] [phone] * HEPATITIS C AB W/REFL TO HCV RNA, QN, PCR (01/17/2022 8:48 AM EDT) Pathologist [facility] HEPATITIS C ANTIBODY NON-REACT YASMEEN NON-REACT YASMEEN [facility] INDEX 0.01 <1.00 [facility] Comment: HCV antibody was non-reactive. There is no laboratory evidence of HCV infection. In most cases, no further action is required. However, if recent HCV exposure is suspected, a test for HCV RNA (test code 00726) is suggested. For additional information please refer to http://education.[employer]/faq/TKU05w0 (This link is being provided for informational/ educational purposes only.) 01/17/2022 8:48 AM EDT Ariella Ortiz MD HISTORICAL/NON ORDERA BLE LABS Final Result [facility] [address] * HIV 1/2 ANTIGEN/ANTIBODY,FOURTH GENERATION W/RFL (01/17/2022 8:48 AM EDT) HIV-1/2 ANTIGEN AND ANTIBODIES, 4TH GENERATION W/ REFLEX NON-REACT YASMEEN NON-REACT YASMEEN [facility] Comment: HIV-1 antigen and HIV-1/HIV-2 [...] purpose. For additional information please refer to http://SweetSpot [employer]/faq/STS020 (This link is being provided for informational/ educational purposes only.) The performance of this assay has not been clinically validated in patients less than 2 years old. 01/17/2022 8:48 AM EDT Ariella Ortiz MD LAB BLOOD ORDERABLES Final Result [facility] [address] * THINPREP TIS PAP AND HPV mRNA E6/E7, CT/NG, TRICH (08/11/2021 12:00 AM EDT) Chlamydia trachomatis RNA, TMA, Urogenital NOT DETECTED NOT DETECTED [facility] Clinical Information: None given [facility] COMMENT SEE COMMENT [facility] Comment: The analytical performance characteristics of this assay, when used to test SurePath(TM) specimens have been determined by [facility]. The modifications have not been cleared or approved by the FDA. This assay has been validated pursuant to the CLIA regulations and is used for clinical purposes. For additional information, please refer to https://SweetSpot WiFi.eucl3D.[employer]/faq/JVQ139 (This link is being provided for information/ [...] has been evaluated with computer assisted technology. [facility] Vehicle Operator: SEE COMMENT [facility] Comment: DMM, CT(ASCP) CT screening location: [address] [address] HPV nRNA E6/E7 Not Detected Not Detected [facility] Comment: Methodology: Software Design Engineer-Mediated Amplification This assay detects E6/E7 viral messenger RNA (mRNA) from 14 high-risk HPV types (16,18,31,33,35,39,45,51,52,56,58,59,66,68). The analytical performance characteristics of this assay have been determined by [facility]. The modifications have not been cleared or approved by the FDA. This assay has been validated pursuant to the CLIA regulations and is used for clinical purposes. For additional information, please refer to http://Sweet[employer] WiFi.[employer]/faq/CLH527k2 (This link if provided for information/ educational purposes only.) Interpretation/Re sult: Negative for intraepithelial lesion or malignancy. [facility] LMP: NONE GIVEN [facility] Neisseria gonorrhoeae RNA, TMA, Urogenital NOT DETECTED NOT DETECTED [facility] Prev. BX: NONE GIVEN [facility] Prev. PAP: NONE GIVEN [facility] SOURCE: None given [facility] Statement Of Adequacy: SEE COMMENT [facility] Comment: Satisfactory for evaluation. Endocervical/transformation zone component present. Trichomonas vaginalis, QL, TMA, PAP Vial NOT DETECTED NOT DETECTED [facility] Comment: The analytical performance characteristics of this assay have been determined by [facility]. The modifications have not been cleared or approved by the FDA. This assay has been validated pursuant to the CLIA regulations and is used for clinical purposes. For additional information, please refer to http://SweetSpot WiFi.[employer]/ faq/Trichomonastma (This link is being provided for information/ educational purposes only.) 08/11/2021 us Ariella Ortiz MD LAB PATHOLOGY ORDERAB LES Final Result [facility] [address] [place] [address], * Hm Colonoscopy (01/16/2021 5:21 PM EDT) us Historical Provider MD HEALTH MAINTENANCE Final Result from Last 3 Months or Most Recently Relevant to Health Maintenance Insurance [facility] [address] [place] [id number] [facility] MEDICAID STAND ADULT [address] [place] [id number] Care Teams Global Mobility Specialist Relationship Specialty Start Date End Date Ariella Scales MD [address] [place] [address] PCP - General Family Medicine 06/25/18
[2025-08-24 11:10] LABS: MANUAL DIFF FLAG NO
[2025-08-24 11:26] LABS: Hematocrit 42.6 % (37.0-47.0); Hemoglobin 13.5 g/dl (12.0-16.0); Imm Gran Abs Auto 0.02 X10*3/uL (0.00-0.03); Imm Gran Pct Auto 0.3 % (0.0-0.4); Lymphocytes Absolute Auto 1.9 X10*3/uL (1.2-4.9); Mean Corpuscular HGB Conc 31.7 g/dl (31.0-35.0); Mean Corpuscular Hemoglobin 26.5 pg (27.0-33.0); Mean Corpuscular Volume 83.5 fL (80.0-98.0); NRBC Abs Auto 0.000 X10*3/uL (0.0-0.012); NRBC Pct Auto 0.0 /100WBC (0.0-0.2); Platelet Count 347 X10*3/uL (160-400); Red Blood Count 5.10 X10*6/uL (4.20-5.50); White Blood Count 7.8 X10*3/uL (4.8-10.8)
[2025-08-24 11:55] LABS: Alanine Aminotransferase 31 U/L (0-31); Albumin Level 4.2 g/dL (3.5-5.0); Alkaline Phosphatase 84 U/L (39-117); Anion Gap 11 (12-20); Aspartate Amino Transferase 35 U/L (5-31); Blood Urea Nitrogen 17 mg/dL (9-16); Calcium 9.2 mg/dL (8.4-10.2); Carbon Dioxide 26 mmol/L (22-29); Chloride 105 mmol/L (96-108); Cholesterol 272 mg/dL (<200); Estimated Glomerular Filt Rate > 60; HDL Cholesterol 54 mg/dL (>40); Potassium 3.7 mmol/L (3.3-5.1); Sodium 138 mmol/L (135-145); Total Protein 7.6 g/dL (6.5-8.0); Triglycerides 128 mg/dL (<150)
[2025-08-24 12:07] LABS: HIV Num 1 0.05 S/CO (0.00-0.99); ~HepC Num1 0.11 S/CO (0.00-0.79); ~Hepatitis C Antibody Nonreactive (Nonreactive)
[2025-08-24 12:19] LABS: Folate 5.8 ng/mL (> or = 4.0); Vitamin B12 450 pg/mL (200-900)
== END 2025-08-24 08:18 | disposition home or self-care (01) ==
LOC: HO.HHCL 08:17
PROVIDERS: PCP Internal Medicine; Visit Provider Internal Medicine
DX: Z00.00 Encounter for general adult medical examination without abnormal findings (principal); Z11.59 Encounter for screening for other viral diseases; Z11.4 Encounter for screening for human immunodeficiency virus [HIV]; Z20.6 Contact with and (suspected) exposure to human immunodeficiency virus [HIV]
CPT/HCPCS: 36415; 80053; 80061; 82306; 82607; 82746; 83036; 84443; 85025; 86803; 87389